=== PATIENT | male | born 1970 | race African-American/Black ===

== ENCOUNTER 2017-11-02 15:06 | Inpatient (IN) | payer OTHER ==
[2017-11-02 16:37] VITALS: BMI 32.3
--- NOTE | 2017-11-02 18:26 | HP ---
COWS - Scale Resting Pulse: 1= [place] 81-100 Sweatin= Chills/Flushing Restless Observation: 1= Difficult to Sit Still Pupil Size: 1= Pupils >than Normal Bone or Joint Aches: 1= Mild Discomfort Runny Nose/ Eye Tearin= Nasal Congestion GI Upset > 30mins: 2= Nausea/Diarrhea Tremor Observation: 2= Slight Tremor Visible Yawning Observation: 1= 1-2x During Session Anxiety or Irritability: 2=Irritable/Anxious Goose Flesh Skin: 3=Piloerection COWS Score: 16 CIWA Score - CIWA Score Nausea/Vomitin Muscle Tremors: 3 Anxiety: 3 Agitation: 3 Paroxysmal Sweats: 3 Orientation: 0-Oriented Tacttile Disturbances: 1-Very Mild Itch/Numbness Auditory Disturbances: 0-None Visual Disturbances: 0-None Headache: 0-None Present CIWA-Ar Total Score: 16 Admission [facility] Chief Complaint: alcohol and heroin withdrawal sx Allergies/Adverse Reactions: Allergies Allergy/AdvReac Type Severity Reaction Status Date / Time Fish Containing Products Allergy Severe Hives Verified 11/02/17 16:36 tomato Allergy Severe Hives Verified 11/02/17 16:36 No Known Drug Allergies Allergy Verified 11/02/17 16:36 History of Present Illness: 47 yo m w h/o opioid use diorer and chronic alcoholism, has [facility] past for detox requesting inpateitn detoxification from lcohol ad nhoerin because of withdrawal sx when he does not use. no h/o seizures, DTs. no si PMHX HTN on meds, not taking them. thirsty, Exam Limitations: No Limitations - Ebola screening Have you traveled outside of the country in the last 21 days: No (N) Have you had contact with anyone from an Ebola affected area: No Have you been sick,other than usual withdrawal symptoms: No Do you have a fever: No - Review of Systems Constitutional: Chills, Diaphoresis, Night Sweats, Changes in sleep, Weight Stable EENT: reports: Tearing, Nose Congestion Respiratory: reports: No Symptoms reported Cardiac: reports: No Symptoms Reported GI: reports: Difficulty Swallowing, Nausea, Poor Appetite, Poor Fluid Intake, Indigestion, Abdominal cramping : reports: No Symptoms Reported Musculoskeletal: reports: Back Pain (withdrawawl sx), Muscle Pain Integumentary: reports: Flushing, Sweating Neuro: reports: Numbness, Tingling, Tremors Endocrine: reports: Increased Thirst Hematology: reports: No Symptoms Reported Psychiatric: reports: Judgement Intact, Mood/Affect Appropiate, Orientated x3, Anxious, Depressed Other Systems: Reviewed and Negative Patient History - Patient Medical History Hx Anemia: No Hx Asthma: No Hx Chronic Obstructive Pulmonary Disease (COPD): No Hx Cancer: No Hx Cardiac Disorders: No Hx Congestive Heart Failure: No Hx Hypertension: Yes (ON NORVASC) Hx Hypercholesterolemia: No Hx Pacemaker: No HX Cerebrovascular Accident: No Hx Seizures: No Hx Dementia: No Hx Diabetes: No Hx Gastrointestinal Disorders: No Hx Liver Disease: No Hx Genitourinary Disorders: No Hx Sexually Transmitted Disorders: No Hx Renal Disease (ESRD): No Hx Thyroid Disease: No Hx Human Immunodeficiency Virus (HIV): No (03/20 LAST NEGATIVE) Hx Hepatitis C: No Hx Depression: Yes (no on meds) Hx Suicide Attempt: No (no si) Hx Bipolar Disorder: No Hx Schizophrenia: No - Patient Surgical History Past Surgical History: Yes Hx Neurologic Surgery: No Hx Cataract Extraction: No Hx Cardiac Surgery: No Hx Lung Surgery: No Hx Breast Surgery: No Hx Breast Biopsy: No Hx Abdominal Surgery: Yes Hx Appendectomy: No Hx Cholecystectomy: No Hx Genitourinary Surgery: No Hx Section: No Hx Orthopedic Surgery: No Other Surgical History: R inguinal hernia and umbillical hernia repair. Anesthesia Reaction: No - PPD History Previous Implant?: Yes Documented Results: Negative w/proof Date: 12/09/15 Results: 0 MM PPD to be Administered?: Yes - Reproductive History Patient is a Female of Child Bearing Age (11 -55 yrs old): No Patient : No - Smoking Cessation Smoking history: Current every day smoker Have you smoked in the past 12 months: Yes Aproximately how many cigarettes per day: 10 Hx Chewing Tobacco Use: No Initiated information on smoking cessation: Yes 'Breaking Loose' booklet given: 11/02/17 - Substance & Tx. History Hx Alcohol Use: Yes Hx Substance Use: Yes Substance Use Type: Alcohol, Cocaine, Heroin, Opiates, Prescribed Hx Substance Use Treatment: Yes (detox in past) - Substances Abused Alcohol Route: Oral Frequency: Daily Amount used: LIQUOR- 1 PINT, BEER- 2 SIX PACK Age of first use: 21 Date of Last Use: 11/02/17 Heroin Route: Inhalation Frequency: Daily Amount used: 10 BAGS Age of first use: 36 Date of Last Use: 11/01/17 Non-Rx Methadone Route: Oral Frequency: Daily Amount used: 40mg Age of first use: 38 Date of Last Use: 10/31/17 Family Disease History - Family Disease History Family Disease History: Diabetes: Mother Admission Physical Exam S - Vital Signs Vital Signs: Vital Signs - 24 hr 11/02/17 16:28 Temperature 97.7 F Pulse Rate 90 Respiratory 18 Rate Blood Pressure 160/110 - Physical General Appearance: Yes: Nourished, Appropriately Dressed, Disheveled, Mild Distress, Obese, Tremorous, Irritable, Sweating, Anxious HEENTM: Yes: EOMI, Hearing grossly Normal, Normocephalic, Normal Voice, VICENTA, Pharynx Normal, Nasal Congestion, Rhinorrhea Respiratory: Yes: Within Normal Limits, Chest Non-Tender, Lungs Clear, Normal Breath Sounds, No Respiratory Distress, No Accessory Muscle Use Neck: Yes: Within Normal Limits, No masses,lesions,Nodules, Trachea in good position Breast: Yes: Breast Exam Deferred Cardiology: Yes: Within Normal Limits, Regular Rhythm, Regular Rate, S1, S2 Abdominal: Yes: Normal Bowel Sounds, Non Tender, Soft, Increased Bowel Sounds, Protuberent, Distended Genitourinary: Yes: Within Normal Limits Back: Yes: Within Normal Limits, Normal Inspection Musculoskeletal: Yes: full range of Motion, Gait Steady, Pelvis Stable, Back pain Extremities: Yes: Normal Capillary Refill, Normal Range of Motion, Tremors Neurological: Yes: 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 intact, Fully Oriented, Alert, Motor Strength 5/5, Normal Response, Depressed Affect Integumentary: Yes: Normal Color, Warm, Diaphoresis, Moist Lymphatic: Yes: Within Normal Limits - Addiitonal Findings: withdrawal sx - Diagnostic (1) Alcohol dependence with uncomplicated withdrawal Current Visit: No Status: Acute (2) Anxiety Current Visit: No Status: Acute (3) Cannabis dependence Current Visit: No Status: Acute (4) Cocaine dependence, uncomplicated Current Visit: No Status: Acute (5) HTN (hypertension) Current Visit: No Status: Acute Qualifiers: Hypertension type: essential hypertension Qualified Code(s): I10 - Essential (primary) hypertension (6) Opioid dependence with withdrawal Current Visit: No Status: Acute (7) Nicotine dependence Current Visit: No Status: Chronic Qualifiers: Nicotine product type: cigarettes Substance use status: uncomplicated Qualified Code(s): F17.210 - Nicotine dependence, cigarettes, uncomplicated (8) Obesity Current Visit: Yes Status: Acute Cleared for Admission S - Detox or Rehab S Level of Care: Medically Managed Detox Regimen/Protocol: Methadone/Librium BHS Breath Alcohol Content Breath Alcohol Content: 0 Urine Drug Screen - Results Drug Screen Negative: No Urine Drug Screen Results: THC-Marijuana, RICKIE-Cocaine, OPI-Opiates, BZO- Benzodiazepines
[2017-11-02] MEDS ORDERED: METHADONE HCL 10 MG TABLET (FOR DETOX USE ONLY) PO ONE ×2 (18:36→23:00)
[2017-11-02] MEDS ORDERED: IBUPROFEN 400 MG TABLET (FP) PO PRN (18:36)
[2017-11-02] MEDS ORDERED: ACETAMINOPHEN 325 MG TABLET (FP) PO PRN (18:36)
[2017-11-02] MEDS ORDERED: NICOTINE POLACRILEX 4 MG GUM BC PRN (18:36)
[2017-11-02] MEDS ORDERED: MAGNESIUM CITRATE 300 ML BOTTLE PO PRN (18:36)
[2017-11-02] MEDS ORDERED: chlordiazePOXIDE HCL 25 MG CAPSULE PO ONE (18:36)
[2017-11-02] MEDS ORDERED: LOPERAMIDE HCL 2 MG CAPSULE PO PRN (18:36)
[2017-11-02] MEDS ORDERED: P-EPHED 60MG/TRIPROLIDI 2.5MG TABLET PO PRN (18:36)
[2017-11-02] MEDS ORDERED: MAGNESIUM HYDROX 2400MG/30ML ORAL SUSPENSION 30 ML CUP PO PRN (18:36)
[2017-11-02] MEDS ORDERED: hydrOXYzine PAMOATE 50 MG CAPSULE (FP) PO PRN (18:36)
[2017-11-02] MEDS ORDERED: guaiFENesin/D-METHORPHAN HB 10 ML UNIT-DOSE CUPS PO PRN (18:36)
[2017-11-02] MEDS ORDERED: MENTHOL/PHENOL 1 EACH UD MM PRN (18:36)
[2017-11-02] MEDS ORDERED: MAG HYDROX/AL HYDROX/SIMETH 30 ML UNIT-DOSE CUP PO PRN (18:36)
[2017-11-02] MEDS ORDERED: chlordiazePOXIDE HCL 25 MG CAPSULE PO PRN (18:36)
[2017-11-02] MEDS: NICOTINE 14 MG/24 HOURS TOPICAL PATCH TD SCH (19:31)
[2017-11-02] MEDS: amLODIPine BESYLATE 5 MG TABLET (FP) PO SCH (19:31)
[2017-11-02] MEDS: chlordiazePOXIDE HCL 25 MG CAPSULE PO SCH (22:19)
[2017-11-02] MEDS: THIAMINE HCL 100 MG TABLET (FP) PO SCH (22:19)
[2017-11-02] MEDS: cloNIDine HCL 0.1 MG TABLET PO SCH (22:19)
[2017-11-02 23:25] LABS: URINE APPEARANCE CLEAR; URINE BILIRUBIN NEGATIVE (NEGATIVE); URINE BLOOD NEGATIVE (NEGATIVE); URINE COLOR LTYELLOW; URINE GLUCOSE (UA) NEGATIVE (NEGATIVE); URINE KETONE NEGATIVE (NEGATIVE); URINE LEUK ESTERASE TRACE (NEGATIVE); URINE NITRITE NEGATIVE (NEGATIVE); URINE PROTEIN NEGATIVE (NEGATIVE); URINE UROBILINOGEN NEGATIVE mg/dL (0.2-1.0)
[2017-11-02 23:49] LABS: EPI CELLS RARE /HPF (FEW)
[2017-11-03] MEDS: chlordiazePOXIDE HCL 25 MG CAPSULE PO SCH ×4 (05:48→22:20)
[2017-11-03] MEDS ORDERED: METHADONE HCL 10 MG TABLET (FOR DETOX USE ONLY) PO SCH (10:00)
[2017-11-03 10:12] LABS: CHLORIDE 105 mmol/L (98-107); POTASSIUM 4.9 mmol/L (3.5-5.1); SODIUM 141 mmol/L (136-145)
[2017-11-03 10:14] LABS: HEMATOCRIT 41.7 % (35.4-49); HEMOGLOBIN 13.3 GM/dL (11.7-16.9); MCH 28.6 pg (25.7-33.7); MCHC 31.8 g/dl (32.0-35.9); MEAN CELL VOLUME 89.8 fl (80-96); MEAN PLT VOLUME 10.3 fl (7.5-11.1); PLATELET COUNT 187 K/MM3 (134-434); RBC 4.64 M/mm3 (4.00-5.60); WHITE BLOOD COUNT 8.5 K/mm3 (4.0-10.0)
[2017-11-03 10:29] LABS: ALBUMIN 3.6 g/dl (3.4-5.0); ALK PHOS 63 U/L (45-117); ANION GAP 6 (8-16); BILIRUBIN,TOTAL 0.4 mg/dL (0.2-1.0); BLOOD UREA NITROGEN 20 mg/dL (7-18); CALCIUM 8.6 mg/dL (8.5-10.1); CO2 30 mmol/L (21-32); CREATININE 1.4 mg/dL (0.7-1.3); GLUCOSE,RANDOM 78 mg/dL (74-106); SGOT/AST 20 U/L (15-37); SGPT/ALT 30 U/L (12-78); TOT PROT 6.7 g/dl (6.4-8.2)
[2017-11-03] MEDS: amLODIPine BESYLATE 5 MG TABLET (FP) PO SCH (10:29)
[2017-11-03] MEDS: cloNIDine HCL 0.1 MG TABLET PO SCH ×2 (10:29→22:20)
[2017-11-03] MEDS: PRENATAL VITAMINS W/ FOLIC ACID TABLET (FP) PO SCH (10:29)
[2017-11-03] MEDS: NICOTINE 14 MG/24 HOURS TOPICAL PATCH TD SCH (10:29)
--- NOTE | 2017-11-03 11:46 | PN ---
[facility] CIWA - CIWA Score Nausea/Vomitin Muscle Tremors: 3 Anxiety: 4-Mod. Anxious/Guarded Agitation: 3 Paroxysmal Sweats: 3 Orientation: 0-Oriented Tacttile Disturbances: 2-Mild Itch/Numbness/Burn Auditory Disturbances: 0-None Visual Disturbances: 0-None Headache: 0-None Present CIWA-Ar Total Score: 17 BHS COWS - Scale Resting Pulse: 1= [place] 81-100 Sweatin= Chills/Flushing Restless Observation: 1= Difficult to Sit Still Pupil Size: 0= Normal to Room Light Bone or Joint Aches: 2= Severe Diffuse Aches Runny Nose/ Eye Tearin= None GI Upset > 30mins: 2= Nausea/Diarrhea Tremor Observation of Outstretched Hands: 2= Slight Tremor Visible Yawning Observation: 1= 1-2x During Session Anxiety or Irritability: 2=Irritable/Anxious Goose Flesh Skin: 3=Piloerection COWS Score: 15 [facility] Progress Note (SOAP) Subjective: Tremors, Sweating, Body Aches, Anxious, Interrupted Sleep. Objective: PT. A & O X 3, OBSERVED AMBULATING ON UNIT. NO ACUTE DISTRESS. 11/03/17 11:43 Vital Signs Temperature 95.8 F L 11/03/17 09:02 Pulse Rate 85 11/03/17 09:02 Respiratory Rate 18 11/03/17 09:02 Blood Pressure 146/85 11/03/17 09:02 O2 Sat by Pulse Oximetry (%) Laboratory Tests 11/02/17 11/03/17 11/03/17 Unknown 07:00 07:00 WBC 8.5 RBC 4.64 Hgb 13.3 Hct 41.7 MCV 89.8 MCH 28.6 MCHC 31.8 L RDW 14.0 Plt Count 187 D MPV 10.3 Sodium 141 Potassium 4.9 Chloride 105 Carbon Dioxide 30 Anion Gap 6 L BUN 20 H D Creatinine 1.4 H Creat Clearance w eGFR 54.80 Random Glucose 78 Calcium 8.6 Total Bilirubin 0.4 AST 20 ALT 30 D Alkaline Phosphatase 63 Total Protein 6.7 Albumin 3.6 Urine Color Ltyellow Urine Appearance Clear Urine pH 8.0 D Ur Specific [place] 1.020 Urine Protein Negative Urine Glucose (UA) Negative Urine Ketones Negative Urine Blood Negative Urine Nitrite Negative Urine Bilirubin Negative Urine Urobilinogen Negative Ur Leukocyte Esterase Trace Urine WBC (Auto) 5 Urine RBC (Auto) <1 Ur Epithelial Cells Rare LABS NOTED. RPR RESULT PENDING. 11/03/17 11:46 Assessment: 11/03/17 11:44 WITHDRAWAL SYMPTOMS. Plan: CONTINUE DETOX. D/C IBUPROFEN AND MAGNESIUM-CONTAINING MEDS. FOR ABNORMAL ADMISSION RENAL LABS. INCREASE DAILY PO FLUID INTAKE.
--- NOTE | 2017-11-03 12:40 | CONSULT ---
[facility] Psychiatric Consult - Data Date of interview: 11/03/17 Admission source: [facility] Identifying data: Readmission to [facility] for this 47 y/o AA male seeking detox treatment on for alcohol,cocaine,cannabis and heroin dependence.Patient is single,a father of one,domiciled,unemployed and supported by friends/relatives. Substance Abuse History: Confirmed by patient in this interview.See details in current [facility] report : Smoking history: Current every day smoker. Have you smoked in the past 12 months: Yes. Aproximately how many cigarettes per day: 10. Hx Chewing Tobacco Use: No. Initiated information on smoking cessation: Yes. 'Breaking Loose' booklet given: 11/02/17. - Substance & Tx. History. Hx Alcohol Use: Yes. Hx Substance Use: Yes. Substance Use Type: Alcohol, Cocaine , Heroin, Opiates, Prescribed. Hx Substance Use Treatment: Yes (detox in past) . - Substances Abused. Alcohol. Route: Oral. Frequency: Daily. Amount used: LIQUOR- 1 PINT, BEER- 2 SIX PACK. Age of first use: 21. Date of Last Use : 11/02/17. Heroin. Route: Inhalation. Frequency: Daily. Amount used: 10 BAGS. Age of first use: 36. Date of Last Use: 11/01/17. Non-Rx Methadone. Route: Oral. Frequency: Daily. Amount used: 40mg. Age of first use: 38. Date of Last Use: 10/31/17 Medical History: Hypertension and a history of right inguinal + umbilical herniorraphies. Psychiatric History: Reportedly diagnosed with Schizophrenia.Patient endorses a history of three psychiatric hospitalizations ([facility] and [facility]).Onset of mental illness in early 20s (special education) .Mr May indicates that he was prescribed abilify 20 mg/day + trazodone 300 mg/hs + vistaril 50 mg prn at the time of his affiliation with the [facility].No reported attendance " for a while." Translated by patient into one year of total non-adherence with medications and OPD care.Patient reports one suicide attempt via wrist-cutting (2002). Physical/Sexual Abuse/Trauma History: Patient denies. Additional Comment: Urine Drug Screen Results: THC-Marijuana, RICKIE-Cocaine, OPI- Opiates, BZO-Benzodiazepines.Noted. Mental Status Exam - Mental Status Exam Alert and Oriented to: Time, Place, Person Cognitive Function: Good Patient Appearance: Well Groomed Mood: Withdrawn, Hopeful Affect: Appropriate, Normal Range Patient Behavior: Fatigued, Cooperative Speech Pattern: Clear, Appropriate Voice Loudness: Normal Thought Process: Goal Oriented Thought Disorder: Not Present Hallucinations: Denies Suicidal Ideation: Denies Homicidal Ideation: Denies Insight/Judgement: Poor Sleep: Poorly, Difficulty falling asleep Appetite: Good Muscle strength/Tone: Normal Gait/Station: Normal Psychiatric Findings - Problem List ([place] 1, 2,3) (1) Alcohol dependence with uncomplicated withdrawal Current Visit: Yes Status: Acute (2) Cannabis dependence Current Visit: Yes Status: Acute (3) Cocaine dependence, uncomplicated Current Visit: Yes Status: Acute (4) Opioid dependence with withdrawal Current Visit: Yes Status: Acute (5) Nicotine dependence Current Visit: Yes Status: Acute Qualifiers: Nicotine product type: cigarettes Substance use status: uncomplicated Qualified Code(s): F17.210 - Nicotine dependence, cigarettes, uncomplicated (6) Substance induced mood disorder Current Visit: Yes Status: Acute (7) Insomnia Current Visit: Yes Status: Acute - Initial Treatment Plan Initial Treatment Plan: Psychoeducation and support.Sleep hygiene discussed with patient.Detoxification in progress.Medications : trazodone 100 mg po hs + abilify 5 mg po hs.Side effects/benefits of each drug (including the potential for priapism) are discussed with the patient.Mr May consented (verbally) to adhere to this careplan.Daily monitoring of clinical course.
--- NOTE | 2017-11-03 14:09 | EKG ---
Test Reason : Blood Pressure : / mmHG Vent. Rate : 089 BPM Atrial Rate : 089 BPM P-R Int : 172 ms QRS Dur : 110 ms QT Int : 410 ms P-R-T Axes : 068 058 -08 degrees QTc Int : 498 ms NORMAL SINUS RHYTHM T WAVE ABNORMALITY, CONSIDER INFEROLATERAL ISCHEMIA PROLONGED QT ABNORMAL ECG NO PREVIOUS ECGS AVAILABLE Confirmed by MD Reagan Edward ([id number]) on 11/03/2017 2:09:08 PM Referred By: Confirmed By:Art Reagan MD
[2017-11-03] MEDS: ARTIFICIAL TEARS (POLYVINYL ALCOHOL 1.4%) OPTH DROPS OU PRN ×2 (15:32→22:20)
[2017-11-03] MEDS ORDERED: traZODone HCL 100 MG TABLET (FP) PO SCH (22:00)
[2017-11-03] MEDS ORDERED: ARIPiprazole 5 MG TABLET (FP) PO SCH (22:00)
[2017-11-03] MEDS: THIAMINE HCL 100 MG TABLET (FP) PO SCH (22:21)
[2017-11-04] MEDS: chlordiazePOXIDE HCL 25 MG CAPSULE PO SCH ×2 (05:46→10:47)
[2017-11-04] MEDS ORDERED: METHADONE HCL 5 MG TABLET (FOR DETOX USE ONLY) PO SCH (10:00)
[2017-11-04] MEDS ORDERED: CARBAMIDE PEROXIDE 6.5% OTIC 15 ML BOTTLE AU SCH (10:00)
[2017-11-04] MEDS: NICOTINE 14 MG/24 HOURS TOPICAL PATCH TD SCH (10:47)
[2017-11-04] MEDS: amLODIPine BESYLATE 5 MG TABLET (FP) PO SCH (10:47)
[2017-11-04] MEDS: PRENATAL VITAMINS W/ FOLIC ACID TABLET (FP) PO SCH (10:47)
[2017-11-04] MEDS: cloNIDine HCL 0.1 MG TABLET PO SCH (10:47)
[2017-11-04] MEDS: ARTIFICIAL TEARS (POLYVINYL ALCOHOL 1.4%) OPTH DROPS OU PRN (10:49)
--- NOTE | 2017-11-04 12:13 | PN ---
[facility] Progress Note Note: Psychiatry Attending's note (follow-up) : Met with patient. Issue : change of mind about medications. Mr May declines to continue trazodone/abilify. " I don't need them.I have not taken anything for months." Patient argues that he has done well without psychotropics. Stable mental status.Uneventful hospital course.Baseline. Plan : Trazodone and abilify are discontinued. Psychoeducation : daily sessions.Support. Search for inpatient rehabilitation program. Discussed with Multidisciplinary team.
[2017-11-04 13:30] VITALS: BP 139/89; PULSE 86; TEMP 97.9
--- NOTE | 2017-11-04 14:28 | PN ---
[facility] CIWA - CIWA Score Nausea/Vomitin-No Nausea/No Vomiting Muscle Tremors: 3 Anxiety: 4-Mod. Anxious/Guarded Agitation: 3 Paroxysmal Sweats: 2 Orientation: 0-Oriented Tacttile Disturbances: 3-Moderate Itch/Numb/Burn Auditory Disturbances: 0-None Visual Disturbances: 0-None Headache: 0-None Present CIWA-Ar Total Score: 15 S COWS - Scale Resting Pulse: 1= [place] 81-100 Sweatin= Chills/Flushing Restless Observation: 1= Difficult to Sit Still Pupil Size: 0= Normal to Room Light Bone or Joint Aches: 2= Severe Diffuse Aches Runny Nose/ Eye Tearin= None GI Upset > 30mins: 1= Stomach Cramp Tremor Observation of Outstretched Hands: 2= Slight Tremor Visible Yawning Observation: 1= 1-2x During Session Anxiety or Irritability: 2=Irritable/Anxious Goose Flesh Skin: 0=Smooth Skin COWS Score: 11 S Progress Note (SOAP) Subjective: Body Aches, Sweating, Stomach cramping, Anxious. Objective: PT. A & O X 3, OBSERVED AMBULATING ON UNIT. NO ACUTE DISTRESS. 11/04/17 14:26 Vital Signs Temperature 97.9 F 11/04/17 13:29 Pulse Rate 86 11/04/17 13:29 Respiratory Rate 18 11/04/17 13:29 Blood Pressure 139/89 11/04/17 13:29 O2 Sat by Pulse Oximetry (%) Laboratory Tests 11/02/17 11/03/17 11/03/17 Unknown 05:50 07:00 WBC 8.5 RBC 4.64 Hgb 13.3 Hct 41.7 MCV 89.8 MCH 28.6 MCHC 31.8 L RDW 14.0 Plt Count 187 D MPV 10.3 Sodium Potassium Chloride Carbon Dioxide Anion Gap BUN Creatinine Creat Clearance w eGFR Random Glucose Calcium Total Bilirubin AST ALT Alkaline Phosphatase Total Protein Albumin Urine Color Ltyellow Urine Appearance Clear Urine pH 8.0 D Ur Specific [place] 1.020 Urine Protein Negative Urine Glucose (UA) Negative Urine Ketones Negative Urine Blood Negative Urine Nitrite Negative Urine Bilirubin Negative Urine Urobilinogen Negative Ur Leukocyte Esterase Trace Urine WBC (Auto) 5 Urine RBC (Auto) <1 Ur Epithelial Cells Rare RPR Titer HIV 1&2 Antibody Screen Negative HIV P24 Antigen Negative 11/03/17 11/03/17 07:00 07:00 WBC RBC Hgb Hct MCV MCH MCHC RDW Plt Count MPV Sodium 141 Potassium 4.9 Chloride 105 Carbon Dioxide 30 Anion Gap 6 L BUN 20 H D Creatinine 1.4 H Creat Clearance w eGFR 54.80 Random Glucose 78 Calcium 8.6 Total Bilirubin 0.4 AST 20 ALT 30 D Alkaline Phosphatase 63 Total Protein 6.7 Albumin 3.6 Urine Color Urine Appearance Urine pH Ur Specific [place] Urine Protein Urine Glucose (UA) Urine Ketones Urine Blood Urine Nitrite Urine Bilirubin Urine Urobilinogen Ur Leukocyte Esterase Urine WBC (Auto) Urine RBC (Auto) Ur Epithelial Cells RPR Titer Nonreactive HIV 1&2 Antibody Screen HIV P24 Antigen LABS NOTED. Assessment: 11/04/17 14:27 WITHDRAWAL SYMPTOMS. Plan: CONTINUE DETOX. INCREASE DAILY PO FLUID INTAKE.
--- NOTE | 2017-11-04 17:54 | DS ---
[facility] Detox Discharge Summary Admission Date: 11/02/17 Discharge Date: 11/04/17 - History Present History: Alcohol Dependence, Cannabis Dependence, Cocaine Dependence, Opioid Dependence Pertinent Past History: HTN Obesity Insomnia - Physical Exam Results Vital Signs: Vital Signs Temperature 97.9 F 11/04/17 13:29 Pulse Rate 86 11/04/17 13:29 Respiratory Rate 18 11/04/17 13:29 Blood Pressure 139/89 11/04/17 13:29 O2 Sat by Pulse Oximetry (%) Pertinent Admission Physical Exam Findings: Laboratory Last Values WBC 8.5 K/mm3 (4.0-10.0) 11/03/17 07:00 RBC 4.64 M/mm3 (4.00-5.60) 11/03/17 07:00 Hgb 13.3 GM/dL (11.7-16.9) 11/03/17 07:00 Hct 41.7 % (35.4-49) 11/03/17 07:00 MCV 89.8 fl (80-96) 11/03/17 07:00 MCH 28.6 pg (25.7-33.7) 11/03/17 07:00 MCHC 31.8 g/dl (32.0-35.9) L 11/03/17 07:00 RDW 14.0 % (11.9-15.9) 11/03/17 07:00 Plt Count 187 K/MM3 (134-434) D 11/03/17 07:00 MPV 10.3 fl (7.5-11.1) 11/03/17 07:00 Sodium 141 mmol/L (136-145) 11/03/17 07:00 Potassium 4.9 mmol/L (3.5-5.1) 11/03/17 07:00 Chloride 105 mmol/L (98-107) 11/03/17 07:00 Carbon Dioxide 30 mmol/L (21-32) 11/03/17 07:00 Anion Gap 6 (8-16) L 11/03/17 07:00 BUN 20 mg/dL (7-18) H D 11/03/17 07:00 Creatinine 1.4 mg/dL (0.7-1.3) H 11/03/17 07:00 Creat Clearance w eGFR 54.80 (>60) 11/03/17 07:00 Random Glucose 78 mg/dL (74-106) 11/03/17 07:00 Calcium 8.6 mg/dL (8.5-10.1) 11/03/17 07:00 Total Bilirubin 0.4 mg/dL (0.2-1.0) 11/03/17 07:00 AST 20 U/L (15-37) 11/03/17 07:00 ALT 30 U/L (12-78) D 11/03/17 07:00 Alkaline Phosphatase 63 U/L (45-117) 11/03/17 07:00 Total Protein 6.7 g/dl (6.4-8.2) 11/03/17 07:00 Albumin 3.6 g/dl (3.4-5.0) 11/03/17 07:00 Urine Color Ltyellow 11/02/17 Unknown Urine Appearance Clear 11/02/17 Unknown Urine pH 8.0 (5.0-8.0) D 11/02/17 Unknown Ur Specific [place] 1.020 (1.001-1.035) 11/02/17 Unknown Urine Protein Negative (NEGATIVE) 11/02/17 Unknown Urine Glucose (UA) Negative (NEGATIVE) 11/02/17 Unknown Urine Ketones Negative (NEGATIVE) 11/02/17 Unknown Urine Blood Negative (NEGATIVE) 11/02/17 Unknown Urine Nitrite Negative (NEGATIVE) 11/02/17 Unknown Urine Bilirubin Negative (NEGATIVE) 11/02/17 Unknown Urine Urobilinogen Negative mg/dL (0.2-1.0) 11/02/17 Unknown Ur Leukocyte Esterase Trace (NEGATIVE) 11/02/17 Unknown Urine WBC (Auto) 5 /hpf (3-5) 11/02/17 Unknown Urine RBC (Auto) <1 /hpf (0-3) 11/02/17 Unknown Ur Epithelial Cells Rare /HPF (FEW) 11/02/17 Unknown RPR Titer Nonreactive (NONREACTIVE) 11/03/17 07:00 HIV 1&2 Antibody Screen Negative 11/03/17 05:50 HIV P24 Antigen Negative 11/03/17 05:50 - Medication Discharge Medications: Ambulatory Orders Amlodipine Besylate [Norvasc -] 5 mg PO DAILY 08/04/16 - Diagnosis (1) Alcohol dependence with uncomplicated withdrawal Current Visit: Yes Status: Acute (2) Cannabis dependence Current Visit: Yes Status: Acute (3) Cocaine dependence, uncomplicated Current Visit: Yes Status: Acute (4) Insomnia Current Visit: Yes Status: Acute (5) Nicotine dependence Current Visit: Yes Status: Acute Qualifiers: Nicotine product type: cigarettes Substance use status: uncomplicated Qualified Code(s): F17.210 - Nicotine dependence, cigarettes, uncomplicated (6) Obesity Current Visit: Yes Status: Acute Qualifiers: Obesity type: unspecified obesity type Obesity classification: unspecified obesity classification Serious obesity comorbidity presence: unspecified whether serious comorbidity present Qualified Code(s): E66.9 - Obesity, unspecified (7) Opioid dependence with withdrawal Current Visit: Yes Status: Acute (8) Substance induced mood disorder Current Visit: Yes Status: Acute (9) HTN (hypertension) Current Visit: Yes Status: Chronic Qualifiers: Hypertension type: essential hypertension Qualified Code(s): I10 - Essential (primary) hypertension - AMA Did Patient Leave Against Medical Advice: Yes (patient was advise to complete treatment and risk )
[2017-11-04] MEDS ORDERED: chlordiazePOXIDE 5 MG CAPSULE PO SCH (23:00)
[2017-11-05] MEDS ORDERED: chlordiazePOXIDE HCL 10 MG CAPSULE PO SCH (23:00)
[2017-11-06] MEDS ORDERED: METHADONE HCL 10 MG TABLET (FOR DETOX USE ONLY) PO SCH (10:00)
[2017-11-07] MEDS ORDERED: METHADONE HCL 5 MG TABLET (FOR DETOX USE ONLY) PO SCH (06:00)
== END 2017-11-04 17:33 | disposition left against medical advice (07) | DRG 770 ==
LOC: YASAS 15:06 → Y3N 18:39
PROVIDERS: ADMIT Internal Medicine; ATTEND Internal Medicine
PROC: HZ2ZZZZ Detoxification Services for Substance Abuse Treatment (ICD-10-PCS; principal; 2017-11-02)
DX: F11.23 Opioid dependence with withdrawal (principal); F10.230 Alcohol dependence with withdrawal, uncomplicated; F14.20 Cocaine dependence, uncomplicated; F12.20 Cannabis dependence, uncomplicated; F17.210 Nicotine dependence, cigarettes, uncomplicated; F19.24 Other psychoactive substance dependence with psychoactive substance-induced mood disorder; F41.9 Anxiety disorder, unspecified; I10 Essential (primary) hypertension; G47.00 Insomnia, unspecified; E66.9 Obesity, unspecified; Z68.21 Body mass index [BMI] 21.0-21.9, adult; Z91.013 Allergy to seafood; Z91.018 Allergy to other foods
CPT/HCPCS: 36415; 80053; 81003; 81015; 85027; 86593; 87389; 93005; 93010; J0735

== ENCOUNTER 2018-06-18 12:14 | Inpatient (IN) | payer OTHER ==
[2018-06-18 13:21] VITALS: BMI 32.4
--- NOTE | 2018-06-18 19:56 | HP ---
COWS - Scale Resting Pulse: 0= [place] 80 or Below Sweatin=Flushed/Facial Moisture Restless Observation: 0= Sits Still Pupil Size: 2= Moderately Dilated (4 mm) Bone or Joint Aches: 1= Mild Discomfort Runny Nose/ Eye Tearin= Runny Nose/Eyes GI Upset > 30mins: 2= Nausea/Diarrhea Tremor Observation: 1= Tremor [place], Not Seen Yawning Observation: 0= None Anxiety or Irritability: 1=Feels Anxious/Irritable Goose Flesh Skin: 0=Smooth Skin COWS Score: 11 CIWA Score - CIWA Score Nausea/Vomitin-Mild Nausea/No Vomiting Muscle Tremors: 1-None Visible, but [place] Anxiety: 1-Mildly Anxious Agitation: 1-Slight > Activity Paroxysmal Sweats: 3 Orientation: 0-Oriented Tacttile Disturbances: 0-None Auditory Disturbances: 0-None Visual Disturbances: 0-None Headache: 0-None Present CIWA-Ar Total Score: 7 Admission [facility] Chief Complaint: Here having alcohol and heroin withdrawal. Allergies/Adverse Reactions: Allergies Allergy/AdvReac Type Severity Reaction Status Date / Time Fish Containing Products Allergy Severe Hives Verified 06/18/18 17:21 tomato Allergy Severe Hives Verified 06/18/18 17:21 No Known Drug Allergies Allergy Verified 06/18/18 17:21 History of Present Illness: Marijuana use disorder since age 19. Alcohol use disorder since age 21. Cocaine use disorder since age 21. Heroin use disorder since age 37. Nicotine use disorder since age 19. Hx HTN on meds. Denies other health issues. Denies seizures or blackouts. Denies any period of time when able to maintain sobriety. PDMP report reviewed. Exam Limitations: No Limitations - Ebola screening Have you traveled outside of the country in the last 21 days: No Have you had contact with anyone from an Ebola affected area: No Have you been sick,other than usual withdrawal symptoms: No Do you have a fever: No - Review of Systems Constitutional: Diaphoresis, Changes in sleep (Difficulty falling asleep) EENT: reports: Blurred Vision (Wears reading glasses), Nose Congestion (r/t withdrawal) Respiratory: reports: No Symptoms reported Cardiac: reports: No Symptoms Reported GI: reports: No Symptoms Reported : reports: No Symptoms Reported Musculoskeletal: reports: Back Pain (r/t withdrawal) Integumentary: reports: No Symptoms Reported Neuro: reports: No Symptoms reported Endocrine: reports: No Symptoms Reported Hematology: reports: No Symptoms Reported Psychiatric: reports: Judgement Intact, Orientated x3, Agitated, Anxious Patient History - Patient Medical History Hx Anemia: No Hx Asthma: No Hx Chronic Obstructive Pulmonary Disease (COPD): No Hx Cancer: No Hx Cardiac Disorders: No Hx Congestive Heart Failure: No Hx Hypertension: Yes (on meds) Hx Hypercholesterolemia: No Hx Pacemaker: No HX Cerebrovascular Accident: No Hx Seizures: No Hx Dementia: No Hx Diabetes: No Hx Gastrointestinal Disorders: No Hx Liver Disease: No Hx Genitourinary Disorders: No Hx Sexually Transmitted Disorders: No Hx Renal Disease (ESRD): No Hx Thyroid Disease: No Hx Human Immunodeficiency Virus (HIV): No (03/20 LAST NEGATIVE) Hx Hepatitis C: No Hx Depression: No Hx Suicide Attempt: No Hx Bipolar Disorder: No Hx Schizophrenia: No - Patient Surgical History Past Surgical History: Yes Hx Neurologic Surgery: No Hx Cataract Extraction: No Hx Cardiac Surgery: No Hx Lung Surgery: No Hx Breast Surgery: No Hx Breast Biopsy: No Hx Abdominal Surgery: Yes Hx Appendectomy: No Hx Cholecystectomy: No Hx Genitourinary Surgery: No Hx Section: No Hx Orthopedic Surgery: No Other Surgical History: R inguinal hernia and umbillical hernia repair. Anesthesia Reaction: No - PPD History Previous Implant?: Yes Documented Results: Negative w/o proof Implanted On Prior R Admission?: Yes Date: 12/09/15 Results: 0 mm - Smoking Cessation Smoking history: Current every day smoker Have you smoked in the past 12 months: Yes Aproximately how many cigarettes per day: 10 Hx Chewing Tobacco Use: No Initiated information on smoking cessation: Yes 'Breaking Loose' booklet given: 06/18/18 - Substance & Tx. History Hx Alcohol Use: Yes Hx Substance Use: Yes Substance Use Type: Alcohol, Cocaine, Heroin, Marijuana Hx Substance Use Treatment: Yes (detox only ) - Substances Abused Heroin Route: Inhalation Frequency: Daily Amount used: 10 bags Age of first use: 37 Date of Last Use: 06/17/18 Alcohol Route: Oral Frequency: Daily Amount used: 1 pint cognac/12pk beer Age of first use: 21 Date of Last Use: 06/17/18 Marijuana/Hashish Route: Smoking Frequency: Daily Amount used: $50 Age of first use: 19 Date of Last Use: 06/17/18 Cocaine Route: Inhalation Frequency: Daily Amount used: $20 Age of first use: 21 Date of Last Use: 06/17/18 Family Disease History - Family Disease History Family Disease History: Diabetes: Mother Admission Physical Exam [facility] - Vital Signs Vital Signs: Vital Signs - 24 hr 06/18/18 13:16 Temperature 97.2 F L Pulse Rate 80 Respiratory 18 Rate Blood Pressure 155/95 - Physical General Appearance: Yes: Nourished, Mild Distress, Tremorous, Irritable, Sweating, Anxious HEENTM: Yes: EOMI, Hearing grossly Normal, Normocephalic, Normal Voice, VICENTA ( 4m mm), Rhinorrhea Respiratory: Yes: Chest Non-Tender, Lungs Clear, Normal Breath Sounds, No Respiratory Distress Neck: Yes: No masses,lesions,Nodules, Supple Breast: Yes: Breast Exam Deferred Cardiology: Yes: Regular Rhythm, Regular Rate, S1, S2 Abdominal: Yes: Non Tender, Soft, Increased Bowel Sounds, Protuberent ( Increased abdominal adiposity) Genitourinary: Yes: Within Normal Limits Back: Yes: Normal Inspection Musculoskeletal: Yes: full range of Motion, Gait Steady Extremities: Yes: Normal Capillary Refill, Non-Tender, Tremors Neurological: Yes: system planning engineer II-XII NML intact, Fully Oriented, Alert, Motor Strength 5/5, Normal Response Integumentary: Yes: Normal Color, Dry, Warm, Other (Superficial abraision (L) foot area approx 2 cm circular w/ first layer of skin absent. Minimal serosang drainage.) Lymphatic: Yes: Within Normal Limits - Diagnostic (1) Alcohol dependence with uncomplicated withdrawal Current Visit: Yes Status: Acute (2) Cannabis dependence Current Visit: Yes Status: Chronic (3) Cocaine dependence, uncomplicated Current Visit: Yes Status: Chronic (4) Nicotine dependence Current Visit: Yes Status: Chronic Qualifiers: Nicotine product type: cigarettes Substance use status: in withdrawal Qualified Code(s): F17.213 - Nicotine dependence, cigarettes, with withdrawal (5) Obesity Current Visit: Yes Status: Chronic Qualifiers: Obesity type: unspecified obesity type Obesity classification: adult class 1 (BMI 30 - 34.9) Serious obesity comorbidity presence: unspecified whether serious comorbidity present (6) Opioid dependence with withdrawal Current Visit: Yes Status: Acute (7) HTN (hypertension) Current Visit: Yes Status: Chronic Qualifiers: Hypertension type: essential hypertension Qualified Code(s): I10 - Essential (primary) hypertension (8) Abrasion Current Visit: Yes Status: Acute Cleared for Admission [facility] - Detox or Rehab [facility] Level of Care: Medically Supervised Detox Regimen/Protocol: Methadone/Librium S Breath Alcohol Content Breath Alcohol Content: 0 Urine Drug Screen - Results Drug Screen Negative: No Urine Drug Screen Results: THC-Marijuana, RICKIE-Cocaine, BZO-Benzodiazepines, OXY- Oxycodone, FEN-Fentanyl
[2018-06-18] MEDS ORDERED: LOPERAMIDE HCL 2 MG CAPSULE PO PRN (20:21)
[2018-06-18] MEDS ORDERED: MAGNESIUM HYDROX 2400MG/30ML ORAL SUSPENSION 30 ML CUP PO PRN (20:21)
[2018-06-18] MEDS ORDERED: P-EPHED 60MG/TRIPROLIDI 2.5MG TABLET PO PRN (20:21)
[2018-06-18] MEDS ORDERED: METHADONE HCL 10 MG TABLET (FOR DETOX USE ONLY) PO ONE ×2 (20:21→23:00)
[2018-06-18] MEDS ORDERED: chlordiazePOXIDE HCL 25 MG CAPSULE PO PRN (20:21)
[2018-06-18] MEDS ORDERED: NICOTINE POLACRILEX 2 MG GUM BC PRN (20:21)
[2018-06-18] MEDS ORDERED: guaiFENesin/D-METHORPHAN HB 10 ML UNIT-DOSE CUPS PO PRN (20:21)
[2018-06-18] MEDS ORDERED: chlordiazePOXIDE HCL 25 MG CAPSULE PO ONE (20:21)
[2018-06-18] MEDS ORDERED: hydrOXYzine PAMOATE 50 MG CAPSULE (FP) PO PRN (20:21)
[2018-06-18] MEDS ORDERED: MENTHOL/PHENOL 1 EACH UD MM PRN (20:21)
[2018-06-18] MEDS ORDERED: MAGNESIUM CITRATE 300 ML BOTTLE PO PRN (20:21)
[2018-06-18] MEDS ORDERED: IBUPROFEN 400 MG TABLET (FP) PO PRN (20:21)
[2018-06-18] MEDS ORDERED: ACETAMINOPHEN 325 MG TABLET (FP) PO PRN (20:21)
[2018-06-18] MEDS ORDERED: MAG HYDROX/AL HYDROX/SIMETH 30 ML UNIT-DOSE CUP PO PRN (20:21)
[2018-06-18] MEDS ORDERED: MELATONIN 5 MG TABLETS PO PRN (22:00)
[2018-06-18] MEDS: chlordiazePOXIDE HCL 25 MG CAPSULE PO SCH (22:17)
[2018-06-18] MEDS: THIAMINE HCL 100 MG TABLET (FP) PO SCH (22:17)
[2018-06-18] MEDS: BACITRACIN 0.9 GM PACKET TP SCH (22:17)
[2018-06-19] MEDS: chlordiazePOXIDE HCL 25 MG CAPSULE PO SCH ×4 (05:51→22:54)
[2018-06-19] MEDS ORDERED: METHADONE HCL 10 MG TABLET (FOR DETOX USE ONLY) PO SCH (10:00)
[2018-06-19] MEDS: BACITRACIN 0.9 GM PACKET TP SCH ×2 (10:43→22:53)
[2018-06-19] MEDS: LISINOPRIL 10 MG TABLET (FP) PO SCH (10:43)
[2018-06-19] MEDS: amLODIPine BESYLATE 5 MG TABLET (FP) PO SCH (10:43)
[2018-06-19] MEDS: PRENATAL VITAMINS W/ FOLIC ACID TABLET (FP) PO SCH (10:43)
[2018-06-19] MEDS: NICOTINE 21 MG/24 HOURS TOPICAL PATCH TD SCH (10:46)
[2018-06-19 11:10] LABS: MEAN PLT VOLUME 10.5 fl (7.5-11.1)
[2018-06-19 11:17] LABS: HEMATOCRIT 43.3 % (35.4-49); MCH 28.8 pg (25.7-33.7); MCHC 32.4 g/dl (32.0-35.9); MEAN CELL VOLUME 88.9 fl (80-96); PLATELET COUNT 166 K/MM3 (134-434); RBC 4.87 M/mm3 (4.00-5.60); RDW 14.8 % (11.9-15.9); WHITE BLOOD COUNT 7.5 K/mm3 (4.0-10.0)
[2018-06-19 11:26] LABS: CHLORIDE 107 mmol/L (98-107); POTASSIUM 4.2 mmol/L (3.5-5.1); SODIUM 142 mmol/L (136-145)
[2018-06-19 11:45] LABS: ALBUMIN 3.3 g/dl (3.4-5.0); ALK PHOS 54 U/L (45-117); ANION GAP 10 MMOL/L (8-16); BILIRUBIN,TOTAL 0.4 mg/dL (0.2-1.0); BLOOD UREA NITROGEN 18 mg/dL (7-18); CALCIUM 8.8 mg/dL (8.5-10.1); CO2 25 mmol/L (21-32); GLUCOSE,RANDOM 109 mg/dL (74-106); SGOT/AST 10 U/L (15-37); SGPT/ALT 15 U/L (13-61); TOT PROT 6.3 g/dl (6.4-8.2)
--- NOTE | 2018-06-19 14:26 | PN ---
S CIWA - CIWA Score Muscle Tremors: 2 Anxiety: 2 Agitation: 2 Paroxysmal Sweats: 2 Orientation: 1-Uncertain about Date Tacttile Disturbances: 0-None Auditory Disturbances: 0-None Visual Disturbances: 0-None Headache: 0-None Present S COWS - Scale Resting Pulse: 1= [place] 81-100 Sweatin= Chills/Flushing Restless Observation: 1= Difficult to Sit Still Pupil Size: 1= Pupils >than Normal Bone or Joint Aches: 1= Mild Discomfort Runny Nose/ Eye Tearin= Nasal Congestion GI Upset > 30mins: 3= Vomiting/Diarrhea Tremor Observation of Outstretched Hands: 2= Slight Tremor Visible Yawning Observation: 1= 1-2x During Session Anxiety or Irritability: 1=Feels Anxious/Irritable Goose Flesh Skin: 0=Smooth Skin COWS Score: 13 S Progress Note (SOAP) Subjective: pt states he is having stomach cramps and diarrhea, needs more meds for relief from anxiety O: Vital Signs - 24 hr 06/18/18 06/19/18 06/19/18 22:27 03:30 07:51 Temperature 97.3 F L 97.7 F Pulse Rate 64 78 Respiratory 20 18 18 Rate Blood Pressure 149/82 148/100 06/19/18 06/19/18 08:53 14:00 Temperature 97.7 F 97.3 F L Pulse Rate 84 81 Respiratory 18 16 Rate Blood Pressure 141/89 140/99 Laboratory Tests 06/19/18 06/19/18 06/19/18 07:50 07:50 07:50 WBC 7.5 RBC 4.87 Hgb 14.0 Hct 43.3 MCV 88.9 MCH 28.8 MCHC 32.4 RDW 14.8 Plt Count 166 MPV 10.5 Sodium 142 Potassium 4.2 Chloride 107 Carbon Dioxide 25 Anion Gap 10 BUN 18 Creatinine 1.0 Creat Clearance w eGFR > 60 Random Glucose 109 H Calcium 8.8 Total Bilirubin 0.4 AST 10 L ALT 15 Alkaline Phosphatase 54 Total Protein 6.3 L Albumin 3.3 L RPR Titer HIV 1&2 Antibody Screen Negative HIV P24 Antigen Negative 06/19/18 07:50 WBC RBC Hgb Hct MCV MCH MCHC RDW Plt Count MPV Sodium Potassium Chloride Carbon Dioxide Anion Gap BUN Creatinine Creat Clearance w eGFR Random Glucose Calcium Total Bilirubin AST ALT Alkaline Phosphatase Total Protein Albumin RPR Titer Nonreactive HIV 1&2 Antibody Screen HIV P24 Antigen labs OK BP a bit high a/p: continue alcohol and opioids detox protocols d/w pt to utilize prn meds, clonidine ordered
[2018-06-19] MEDS: cloNIDine HCL 0.1 MG TABLET PO PRN (14:41)
--- NOTE | 2018-06-19 16:41 | CONSULT ---
[facility] Psychiatric Consult - Data Date of interview: 06/19/18 Admission source: [facility] Identifying data: Another admission to [facility] for this 47 y/o AA male self- referred for detoxification treatment (alcohol,cocaine,cannabis,heroin) .Admitted to [address] [place] [address].Patient is single,a father of one,domiciled,unemployed and supported on SSI benefits. Substance Abuse History: Smoking history: Current every day smoker. Have you smoked in the past 12 months: Yes. Aproximately how many cigarettes per day: 10. Hx Chewing Tobacco Use: No. Initiated information on smoking cessation: Yes. 'Breaking Loose' booklet given: 06/18/18. - Substance & Tx. History. Hx Alcohol Use: Yes. Hx Substance Use: Yes. Substance Use Type: Alcohol, Cocaine , Heroin, Marijuana. Hx Substance Use Treatment: Yes (detox only ). - Substances Abused. Heroin. Route: Inhalation. Frequency: Daily. Amount used: 10 bags. Age of first use: 37. Date of Last Use: 06/17/18. Alcohol. Route: Oral. Frequency: Daily. Amount used: 1 pint cognac/12pk beer. Age of first use: 21. Date of Last Use: 06/17/18. Marijuana/Hashish. Route: Smoking. Frequency: Daily. Amount used: $50. Age of first use: 19. Date of Last Use: 06/17/18. Cocaine. Route: Inhalation. Frequency: Daily. Amount used: $20. Age of first use: 21. Date of Last Use: 06/17/18 Medical History: Hypertension and a history of right inguinal + umbilical herniorraphies. Psychiatric History: Unreliable historian.In this interview, the patient reports that he has been diagnosed with Schizophrenia,PTSD and Bipolar Disorder.Admits to a history of several psychiatric hospitalizations ([facility]).Onset of mental illness in early 20's (special education).Mr May indicates that he is still prescribed abilify 20 mg/day + trazodone 300 mg/hs.Has no contact with psychiatrists or OPD care organizations.Patient declares that he gets his refills from [facility] providers. History of one suicide attempt via wrist-cutting ( 2002). Physical/Sexual Abuse/Trauma History: Patient denies. Additional Comment: Urine Drug Screen Results: THC-Marijuana, RICKIE-Cocaine, BZO- Benzodiazepines, OXY-Oxycodone, FEN-Fentanyl.Noted. Mental Status Exam - Mental Status Exam Alert and Oriented to: Time, Place, Person Cognitive Function: Good Patient Appearance: Well Groomed Mood: Withdrawn, Irritable Affect: Mood Congruent Patient Behavior: Fatigued, Cooperative Speech Pattern: Clear, Appropriate Voice Loudness: Normal Thought Process: Intact, Goal Oriented Thought Disorder: Not Present Hallucinations: Denies Suicidal Ideation: Denies Homicidal Ideation: Denies Insight/Judgement: Poor Sleep: Poorly, Difficulty falling asleep Appetite: Good Muscle strength/Tone: Normal Gait/Station: Normal Psychiatric Findings - Problem List ([place] 1, 2,3) (1) Opioid dependence with withdrawal Current Visit: Yes Status: Acute (2) Alcohol dependence with uncomplicated withdrawal Current Visit: Yes Status: Acute (3) Cocaine dependence, uncomplicated Current Visit: Yes Status: Acute (4) Cannabis dependence Current Visit: Yes Status: Acute (5) Nicotine dependence Current Visit: Yes Status: Acute Qualifiers: Nicotine product type: cigarettes Substance use status: in withdrawal Qualified Code(s): F17.213 - Nicotine dependence, cigarettes, with withdrawal (6) Substance induced mood disorder Current Visit: Yes Status: Acute (7) Insomnia Current Visit: Yes Status: Acute (8) Non compliance w medication regimen Current Visit: Yes Status: Chronic Comment: Never follows up with aftercare. - Initial Treatment Plan Initial Treatment Plan: Psychoeducation.Sleep hygiene.Detoxification.Groups.No record of medications to reconciled.Patient is currently asymptomatic for claimed entities of PTSD,Bipolar Disorder and Schizophrenia.Current presentation is strongly suggestive of a substance-induced syndrome.Besides, this patient is known as an unreliable historian (refer to my previous notes) .Medications cannot be verified or confirmed.Will, as precaution, resume trazodone at 100 mg po hs + aripriprazole at 5 mg po daily.Side effects/ benefits discussed.Consent (verbal ) : taken.Patient will be observed and medications will be titrated (by unit clinician) if clinically indicated. Observation.
[2018-06-19 17:54] LABS: URINE APPEARANCE CLEAR; URINE BILIRUBIN NEGATIVE (<2.0 mg/dL); URINE COLOR LTYELLOW; URINE GLUCOSE (UA) NEGATIVE (NEGATIVE); URINE KETONE NEGATIVE (NEGATIVE); URINE LEUK ESTERASE NEGATIVE (NEGATIVE); URINE NITRITE NEGATIVE (NEGATIVE); URINE PROTEIN NEGATIVE (NEGATIVE); URINE UROBILINOGEN NEGATIVE mg/dL (0.2-1.0)
[2018-06-19] MEDS: THIAMINE HCL 100 MG TABLET (FP) PO SCH (22:54)
[2018-06-19] MEDS: traZODone HCL 100 MG TABLET (FP) PO SCH (23:46)
[2018-06-20] MEDS: chlordiazePOXIDE HCL 25 MG CAPSULE PO SCH ×3 (06:33→17:11)
[2018-06-20] MEDS: PRENATAL VITAMINS W/ FOLIC ACID TABLET (FP) PO SCH (10:13)
[2018-06-20] MEDS: amLODIPine BESYLATE 5 MG TABLET (FP) PO SCH (10:14)
[2018-06-20] MEDS: METHADONE HCL 5 MG TABLET (FOR DETOX USE ONLY) PO SCH (10:14)
[2018-06-20] MEDS: BACITRACIN 0.9 GM PACKET TP SCH ×2 (10:14→22:40)
[2018-06-20] MEDS: LISINOPRIL 10 MG TABLET (FP) PO SCH (10:14)
[2018-06-20] MEDS: NICOTINE 21 MG/24 HOURS TOPICAL PATCH TD SCH (10:16)
[2018-06-20] MEDS: ARIPiprazole 5 MG TABLET (FP) PO SCH (10:42)
--- NOTE | 2018-06-20 16:31 | PN ---
[facility] CIWA - CIWA Score Nausea/Vomitin-Mild Nausea/No Vomiting Muscle Tremors: 3 Anxiety: 2 Agitation: 3 Paroxysmal Sweats: 1-Minimal Palms Moist Orientation: 0-Oriented Tacttile Disturbances: 0-None Auditory Disturbances: 0-None Visual Disturbances: 0-None Headache: 0-None Present CIWA-Ar Total Score: 10 [facility] COWS - Scale Resting Pulse: 0= [place] 80 or Below Sweatin= Chills/Flushing Restless Observation: 1= Difficult to Sit Still Pupil Size: 0= Normal to Room Light Bone or Joint Aches: 1= Mild Discomfort Runny Nose/ Eye Tearin= Nasal Congestion GI Upset > 30mins: 1= Stomach Cramp Tremor Observation of Outstretched Hands: 2= Slight Tremor Visible Yawning Observation: 1= 1-2x During Session Anxiety or Irritability: 1=Feels Anxious/Irritable Goose Flesh Skin: 0=Smooth Skin COWS Score: 9 S Progress Note (SOAP) Subjective: body ache joints pain sweat tremor anxiety Objective: 06/20/18 16:30 Vital Signs Temperature 97.0 F L 06/20/18 13:51 Pulse Rate 103 H 06/20/18 13:51 Respiratory Rate 18 06/20/18 13:51 Blood Pressure 127/88 06/20/18 13:51 O2 Sat by Pulse Oximetry (%) Laboratory Last Values WBC 7.5 K/mm3 (4.0-10.0) 06/19/18 07:50 RBC 4.87 M/mm3 (4.00-5.60) 06/19/18 07:50 Hgb 14.0 GM/dL (11.7-16.9) 06/19/18 07:50 Hct 43.3 % (35.4-49) 06/19/18 07:50 MCV 88.9 fl (80-96) 06/19/18 07:50 MCH 28.8 pg (25.7-33.7) 06/19/18 07:50 MCHC 32.4 g/dl (32.0-35.9) 06/19/18 07:50 RDW 14.8 % (11.9-15.9) 06/19/18 07:50 Plt Count 166 K/MM3 (134-434) 06/19/18 07:50 MPV 10.5 fl (7.5-11.1) 06/19/18 07:50 Sodium 142 mmol/L (136-145) 06/19/18 07:50 Potassium 4.2 mmol/L (3.5-5.1) 06/19/18 07:50 Chloride 107 mmol/L (98-107) 06/19/18 07:50 Carbon Dioxide 25 mmol/L (21-32) 06/19/18 07:50 Anion Gap 10 MMOL/L (8-16) 06/19/18 07:50 BUN 18 mg/dL (7-18) 06/19/18 07:50 Creatinine 1.0 mg/dL (0.55-1.3) 06/19/18 07:50 Creat Clearance w eGFR > 60 (>60) 06/19/18 07:50 Random Glucose 109 mg/dL (74-106) H 06/19/18 07:50 Calcium 8.8 mg/dL (8.5-10.1) 06/19/18 07:50 Total Bilirubin 0.4 mg/dL (0.2-1.0) 06/19/18 07:50 AST 10 U/L (15-37) L 06/19/18 07:50 ALT 15 U/L (13-61) 06/19/18 07:50 Alkaline Phosphatase 54 U/L (45-117) 06/19/18 07:50 Total Protein 6.3 g/dl (6.4-8.2) L 06/19/18 07:50 Albumin 3.3 g/dl (3.4-5.0) L 06/19/18 07:50 Urine Color Ltyellow 06/19/18 15:43 Urine Appearance Clear 06/19/18 15:43 Urine pH 5.0 (5.0-8.0) D 06/19/18 15:43 Ur Specific [place] 1.019 (1.001-1.035) 06/19/18 15:43 Urine Protein Negative (NEGATIVE) 06/19/18 15:43 Urine Glucose (UA) Negative (NEGATIVE) 06/19/18 15:43 Urine Ketones Negative (NEGATIVE) 06/19/18 15:43 Urine Blood Negative (NEGATIVE) 06/19/18 15:43 Urine Nitrite Negative (NEGATIVE) 06/19/18 15:43 Urine Bilirubin Negative (<2.0 mg/dL) 06/19/18 15:43 Urine Urobilinogen Negative mg/dL (0.2-1.0) 06/19/18 15:43 Ur Leukocyte Esterase Negative (NEGATIVE) 06/19/18 15:43 RPR Titer Nonreactive (NONREACTIVE) 06/19/18 07:50 HIV 1&2 Antibody Screen Negative 06/19/18 07:50 HIV P24 Antigen Negative 06/19/18 07:50 lab noted Assessment: 06/20/18 16:30 withdrawal sx Plan: continue detox
--- NOTE | 2018-06-20 22:33 | EKG ---
Test Reason : Blood Pressure : / mmHG Vent. Rate : 066 BPM Atrial Rate : 066 BPM P-R Int : 184 ms QRS Dur : 104 ms QT Int : 460 ms P-R-T Axes : 072 057 027 degrees QTc Int : 482 ms SINUS RHYTHM WITH MARKED SINUS ARRHYTHMIA MINIMAL VOLTAGE CRITERIA FOR LVH, MAY BE NORMAL VARIANT T WAVE ABNORMALITY, CONSIDER INFERIOR ISCHEMIA T WAVE ABNORMALITY, CONSIDER ANTEROLATERAL ISCHEMIA PROLONGED QT ABNORMAL ECG WHEN COMPARED WITH ECG OF 02-NOV-2017 19:43, NO SIGNIFICANT CHANGE WAS FOUND Confirmed by NOÉ ORR MD ([id number]) on 06/20/2018 10:33:13 PM Referred By: Confirmed By:NOÉ ORR MD
[2018-06-20] MEDS: THIAMINE HCL 100 MG TABLET (FP) PO SCH (22:41)
[2018-06-20] MEDS: traZODone HCL 100 MG TABLET (FP) PO SCH (22:41)
[2018-06-20] MEDS: chlordiazePOXIDE 5 MG CAPSULE PO SCH (23:53)
[2018-06-21] MEDS: chlordiazePOXIDE 5 MG CAPSULE PO SCH ×3 (06:18→18:04)
[2018-06-21] MEDS: NICOTINE 21 MG/24 HOURS TOPICAL PATCH TD SCH (10:30)
[2018-06-21] MEDS: ARIPiprazole 5 MG TABLET (FP) PO SCH (10:31)
[2018-06-21] MEDS: amLODIPine BESYLATE 5 MG TABLET (FP) PO SCH (10:31)
[2018-06-21] MEDS: BACITRACIN 0.9 GM PACKET TP SCH ×2 (10:31→22:52)
[2018-06-21] MEDS: LISINOPRIL 10 MG TABLET (FP) PO SCH (10:31)
[2018-06-21] MEDS: METHADONE HCL 5 MG TABLET (FOR DETOX USE ONLY) PO SCH (10:32)
[2018-06-21] MEDS: PRENATAL VITAMINS W/ FOLIC ACID TABLET (FP) PO SCH (10:58)
[2018-06-21] MEDS: cloNIDine HCL 0.1 MG TABLET PO PRN (12:12)
--- NOTE | 2018-06-21 17:23 | PN ---
[facility] Progress Note (SOAP) Subjective: muscle cramping joints pain sweat tremor restlessness Objective: 06/21/18 17:22 Vital Signs Temperature 96.3 F L 06/21/18 13:08 Pulse Rate 97 H 06/21/18 13:08 Respiratory Rate 18 06/21/18 13:08 Blood Pressure 145/96 06/21/18 13:08 O2 Sat by Pulse Oximetry (%) Laboratory Last Values WBC 7.5 K/mm3 (4.0-10.0) 06/19/18 07:50 RBC 4.87 M/mm3 (4.00-5.60) 06/19/18 07:50 Hgb 14.0 GM/dL (11.7-16.9) 06/19/18 07:50 Hct 43.3 % (35.4-49) 06/19/18 07:50 MCV 88.9 fl (80-96) 06/19/18 07:50 MCH 28.8 pg (25.7-33.7) 06/19/18 07:50 MCHC 32.4 g/dl (32.0-35.9) 06/19/18 07:50 RDW 14.8 % (11.9-15.9) 06/19/18 07:50 Plt Count 166 K/MM3 (134-434) 06/19/18 07:50 MPV 10.5 fl (7.5-11.1) 06/19/18 07:50 Sodium 142 mmol/L (136-145) 06/19/18 07:50 Potassium 4.2 mmol/L (3.5-5.1) 06/19/18 07:50 Chloride 107 mmol/L (98-107) 06/19/18 07:50 Carbon Dioxide 25 mmol/L (21-32) 06/19/18 07:50 Anion Gap 10 MMOL/L (8-16) 06/19/18 07:50 BUN 18 mg/dL (7-18) 06/19/18 07:50 Creatinine 1.0 mg/dL (0.55-1.3) 06/19/18 07:50 Creat Clearance w eGFR > 60 (>60) 06/19/18 07:50 Random Glucose 109 mg/dL (74-106) H 06/19/18 07:50 Calcium 8.8 mg/dL (8.5-10.1) 06/19/18 07:50 Total Bilirubin 0.4 mg/dL (0.2-1.0) 06/19/18 07:50 AST 10 U/L (15-37) L 06/19/18 07:50 ALT 15 U/L (13-61) 06/19/18 07:50 Alkaline Phosphatase 54 U/L (45-117) 06/19/18 07:50 Total Protein 6.3 g/dl (6.4-8.2) L 06/19/18 07:50 Albumin 3.3 g/dl (3.4-5.0) L 06/19/18 07:50 Urine Color Ltyellow 06/19/18 15:43 Urine Appearance Clear 06/19/18 15:43 Urine pH 5.0 (5.0-8.0) D 06/19/18 15:43 Ur Specific [place] 1.019 (1.001-1.035) 06/19/18 15:43 Urine Protein Negative (NEGATIVE) 06/19/18 15:43 Urine Glucose (UA) Negative (NEGATIVE) 06/19/18 15:43 Urine Ketones Negative (NEGATIVE) 06/19/18 15:43 Urine Blood Negative (NEGATIVE) 06/19/18 15:43 Urine Nitrite Negative (NEGATIVE) 06/19/18 15:43 Urine Bilirubin Negative (<2.0 mg/dL) 06/19/18 15:43 Urine Urobilinogen Negative mg/dL (0.2-1.0) 06/19/18 15:43 Ur Leukocyte Esterase Negative (NEGATIVE) 06/19/18 15:43 RPR Titer Nonreactive (NONREACTIVE) 06/19/18 07:50 HIV 1&2 Antibody Screen Negative 06/19/18 07:50 HIV P24 Antigen Negative 06/19/18 07:50 lab noted Assessment: 06/21/18 17:23 withdrawal sx Plan: continue detox
[2018-06-21] MEDS: THIAMINE HCL 100 MG TABLET (FP) PO SCH (22:52)
[2018-06-21] MEDS: chlordiazePOXIDE HCL 10 MG CAPSULE PO SCH (22:52)
[2018-06-21] MEDS: traZODone HCL 100 MG TABLET (FP) PO SCH (22:52)
[2018-06-22] MEDS: chlordiazePOXIDE HCL 10 MG CAPSULE PO SCH ×3 (05:34→18:13)
[2018-06-22] MEDS ORDERED: METHADONE HCL 10 MG TABLET (FOR DETOX USE ONLY) PO SCH (10:00)
[2018-06-22] MEDS: cloNIDine HCL 0.1 MG TABLET PO PRN (11:26)
[2018-06-22] MEDS: amLODIPine BESYLATE 5 MG TABLET (FP) PO SCH (11:26)
[2018-06-22] MEDS: BACITRACIN 0.9 GM PACKET TP SCH ×2 (11:26→22:58)
[2018-06-22] MEDS: PRENATAL VITAMINS W/ FOLIC ACID TABLET (FP) PO SCH (11:27)
[2018-06-22] MEDS: NICOTINE 21 MG/24 HOURS TOPICAL PATCH TD SCH (11:27)
[2018-06-22] MEDS: LISINOPRIL 10 MG TABLET (FP) PO SCH (11:29)
[2018-06-22] MEDS: ARIPiprazole 5 MG TABLET (FP) PO SCH (11:30)
--- NOTE | 2018-06-22 16:26 | PN ---
[facility] Progress Note (SOAP) Subjective: feeling better no body ache no tremor less sweat sleep better at night Objective: 06/22/18 16:25 Vital Signs Temperature 98.5 F 06/22/18 13:57 Pulse Rate 116 H 06/22/18 13:57 Respiratory Rate 18 06/22/18 13:57 Blood Pressure 144/85 06/22/18 13:57 O2 Sat by Pulse Oximetry (%) Laboratory Last Values WBC 7.5 K/mm3 (4.0-10.0) 06/19/18 07:50 RBC 4.87 M/mm3 (4.00-5.60) 06/19/18 07:50 Hgb 14.0 GM/dL (11.7-16.9) 06/19/18 07:50 Hct 43.3 % (35.4-49) 06/19/18 07:50 MCV 88.9 fl (80-96) 06/19/18 07:50 MCH 28.8 pg (25.7-33.7) 06/19/18 07:50 MCHC 32.4 g/dl (32.0-35.9) 06/19/18 07:50 RDW 14.8 % (11.9-15.9) 06/19/18 07:50 Plt Count 166 K/MM3 (134-434) 06/19/18 07:50 MPV 10.5 fl (7.5-11.1) 06/19/18 07:50 Sodium 142 mmol/L (136-145) 06/19/18 07:50 Potassium 4.2 mmol/L (3.5-5.1) 06/19/18 07:50 Chloride 107 mmol/L (98-107) 06/19/18 07:50 Carbon Dioxide 25 mmol/L (21-32) 06/19/18 07:50 Anion Gap 10 MMOL/L (8-16) 06/19/18 07:50 BUN 18 mg/dL (7-18) 06/19/18 07:50 Creatinine 1.0 mg/dL (0.55-1.3) 06/19/18 07:50 Creat Clearance w eGFR > 60 (>60) 06/19/18 07:50 Random Glucose 109 mg/dL (74-106) H 06/19/18 07:50 Calcium 8.8 mg/dL (8.5-10.1) 06/19/18 07:50 Total Bilirubin 0.4 mg/dL (0.2-1.0) 06/19/18 07:50 AST 10 U/L (15-37) L 06/19/18 07:50 ALT 15 U/L (13-61) 06/19/18 07:50 Alkaline Phosphatase 54 U/L (45-117) 06/19/18 07:50 Total Protein 6.3 g/dl (6.4-8.2) L 06/19/18 07:50 Albumin 3.3 g/dl (3.4-5.0) L 06/19/18 07:50 Urine Color Ltyellow 06/19/18 15:43 Urine Appearance Clear 06/19/18 15:43 Urine pH 5.0 (5.0-8.0) D 06/19/18 15:43 Ur Specific [place] 1.019 (1.001-1.035) 06/19/18 15:43 Urine Protein Negative (NEGATIVE) 06/19/18 15:43 Urine Glucose (UA) Negative (NEGATIVE) 06/19/18 15:43 Urine Ketones Negative (NEGATIVE) 06/19/18 15:43 Urine Blood Negative (NEGATIVE) 06/19/18 15:43 Urine Nitrite Negative (NEGATIVE) 06/19/18 15:43 Urine Bilirubin Negative (<2.0 mg/dL) 06/19/18 15:43 Urine Urobilinogen Negative mg/dL (0.2-1.0) 06/19/18 15:43 Ur Leukocyte Esterase Negative (NEGATIVE) 06/19/18 15:43 RPR Titer Nonreactive (NONREACTIVE) 06/19/18 07:50 HIV 1&2 Antibody Screen Negative 06/19/18 07:50 HIV P24 Antigen Negative 06/19/18 07:50 lab noted Assessment: 06/22/18 16:25 mild withdrawal sx Plan: medically supervised detox
[2018-06-22] MEDS: traZODone HCL 100 MG TABLET (FP) PO SCH (22:58)
[2018-06-22] MEDS: THIAMINE HCL 100 MG TABLET (FP) PO SCH (22:58)
[2018-06-23] MEDS ORDERED: METHADONE HCL 5 MG TABLET (FOR DETOX USE ONLY) PO SCH (06:00)
[2018-06-23] MEDS: NICOTINE 21 MG/24 HOURS TOPICAL PATCH TD SCH (09:20)
[2018-06-23] MEDS: ARIPiprazole 5 MG TABLET (FP) PO SCH (09:20)
[2018-06-23] MEDS: amLODIPine BESYLATE 5 MG TABLET (FP) PO SCH (09:20)
[2018-06-23] MEDS: PRENATAL VITAMINS W/ FOLIC ACID TABLET (FP) PO SCH (09:20)
[2018-06-23] MEDS: BACITRACIN 0.9 GM PACKET TP SCH (09:20)
[2018-06-23] MEDS: LISINOPRIL 10 MG TABLET (FP) PO SCH (09:20)
--- NOTE | 2018-06-23 09:45 | DS ---
[facility] Detox Discharge Summary Admission Date: 06/18/18 Discharge Date: 06/23/18 - History Present History: Alcohol Dependence, Opioid Dependence Pertinent Past History: Admitted for opiate and alcohol withdrawal. - Physical Exam Results Vital Signs: Vital Signs Temperature 97.3 F L 06/23/18 06:00 Pulse Rate 85 06/23/18 06:00 Respiratory Rate 20 06/23/18 06:00 Blood Pressure 141/87 06/23/18 06:00 O2 Sat by Pulse Oximetry (%) Pertinent Admission Physical Exam Findings: Withdrawal symptoms on admission. Laboratory Last Values WBC 7.5 K/mm3 (4.0-10.0) 06/19/18 07:50 RBC 4.87 M/mm3 (4.00-5.60) 06/19/18 07:50 Hgb 14.0 GM/dL (11.7-16.9) 06/19/18 07:50 Hct 43.3 % (35.4-49) 06/19/18 07:50 MCV 88.9 fl (80-96) 06/19/18 07:50 MCH 28.8 pg (25.7-33.7) 06/19/18 07:50 MCHC 32.4 g/dl (32.0-35.9) 06/19/18 07:50 RDW 14.8 % (11.9-15.9) 06/19/18 07:50 Plt Count 166 K/MM3 (134-434) 06/19/18 07:50 MPV 10.5 fl (7.5-11.1) 06/19/18 07:50 Sodium 142 mmol/L (136-145) 06/19/18 07:50 Potassium 4.2 mmol/L (3.5-5.1) 06/19/18 07:50 Chloride 107 mmol/L (98-107) 06/19/18 07:50 Carbon Dioxide 25 mmol/L (21-32) 06/19/18 07:50 Anion Gap 10 MMOL/L (8-16) 06/19/18 07:50 BUN 18 mg/dL (7-18) 06/19/18 07:50 Creatinine 1.0 mg/dL (0.55-1.3) 06/19/18 07:50 Creat Clearance w eGFR > 60 (>60) 06/19/18 07:50 Random Glucose 109 mg/dL (74-106) H 06/19/18 07:50 Calcium 8.8 mg/dL (8.5-10.1) 06/19/18 07:50 Total Bilirubin 0.4 mg/dL (0.2-1.0) 06/19/18 07:50 AST 10 U/L (15-37) L 06/19/18 07:50 ALT 15 U/L (13-61) 06/19/18 07:50 Alkaline Phosphatase 54 U/L (45-117) 06/19/18 07:50 Total Protein 6.3 g/dl (6.4-8.2) L 06/19/18 07:50 Albumin 3.3 g/dl (3.4-5.0) L 06/19/18 07:50 Urine Color Ltyellow 06/19/18 15:43 Urine Appearance Clear 06/19/18 15:43 Urine pH 5.0 (5.0-8.0) D 06/19/18 15:43 Ur Specific [place] 1.019 (1.001-1.035) 06/19/18 15:43 Urine Protein Negative (NEGATIVE) 06/19/18 15:43 Urine Glucose (UA) Negative (NEGATIVE) 06/19/18 15:43 Urine Ketones Negative (NEGATIVE) 06/19/18 15:43 Urine Blood Negative (NEGATIVE) 06/19/18 15:43 Urine Nitrite Negative (NEGATIVE) 06/19/18 15:43 Urine Bilirubin Negative (<2.0 mg/dL) 06/19/18 15:43 Urine Urobilinogen Negative mg/dL (0.2-1.0) 06/19/18 15:43 Ur Leukocyte Esterase Negative (NEGATIVE) 06/19/18 15:43 RPR Titer Nonreactive (NONREACTIVE) 06/19/18 07:50 HIV 1&2 Antibody Screen Negative 06/19/18 07:50 HIV P24 Antigen Negative 06/19/18 07:50 Labs reviewed. - Treatment Hospital Course: Detox Protocol Followed, Detoxed Safely, Responded well, Discharged Condition Good, Rehab Referral Accepted ([facility] ) Patient has Accepted a Rehab Referral to: [facility] - Medication Discharge Medications: Ambulatory Orders Amlodipine Besylate [Norvasc -] 5 mg PO DAILY #30 tablet 06/22/18 Lisinopril 10 mg PO DAILY #30 tablet 06/22/18 Nicotine Polacrilex [Nicorelief -] 2 mg BC Q2H PRN #90 gum 06/23/18 - Diagnosis (1) Alcohol dependence with uncomplicated withdrawal Current Visit: Yes Status: Acute (2) Cannabis dependence Current Visit: Yes Status: Acute (3) Cocaine dependence, uncomplicated Current Visit: Yes Status: Acute (4) Nicotine dependence Current Visit: Yes Status: Acute Qualifiers: Nicotine product type: cigarettes Substance use status: in withdrawal Qualified Code(s): F17.213 - Nicotine dependence, cigarettes, with withdrawal (5) Obesity Current Visit: Yes Status: Chronic Qualifiers: Obesity type: unspecified obesity type Obesity classification: adult class 1 (BMI 30 - 34.9) Serious obesity comorbidity presence: unspecified whether serious comorbidity present (6) Opioid dependence with withdrawal Current Visit: Yes Status: Acute (7) HTN (hypertension) Current Visit: Yes Status: Chronic Qualifiers: Hypertension type: essential hypertension Qualified Code(s): I10 - Essential (primary) hypertension (8) Abrasion Current Visit: Yes Status: Acute - AMA Did Patient Leave Against Medical Advice: No
[2018-06-23 09:49] VITALS: BP 143/88; PULSE 100; TEMP 97.7
== END 2018-06-23 09:45 | disposition home or self-care (01) | DRG 773 ==
LOC: YASAS 12:14 → Y6N 17:50
PROC: HZ2ZZZZ Detoxification Services for Substance Abuse Treatment (ICD-10-PCS; principal; 2018-06-18)
DX: F11.23 Opioid dependence with withdrawal (principal); F10.230 Alcohol dependence with withdrawal, uncomplicated; F14.20 Cocaine dependence, uncomplicated; F12.20 Cannabis dependence, uncomplicated; F17.213 Nicotine dependence, cigarettes, with withdrawal; F19.24 Other psychoactive substance dependence with psychoactive substance-induced mood disorder; F43.10 Post-traumatic stress disorder, unspecified; F20.9 Schizophrenia, unspecified; F31.9 Bipolar disorder, unspecified; G47.00 Insomnia, unspecified; I10 Essential (primary) hypertension; E66.9 Obesity, unspecified; Z68.32 Body mass index [BMI] 32.0-32.9, adult; S90.812A Abrasion, left foot, initial encounter; X58.XXXA Exposure to other specified factors, initial encounter; Y93.9 Activity, unspecified; Y92.9 Unspecified place or not applicable; Y99.9 Unspecified external cause status
CPT/HCPCS: 36415; 80053; 81003; 85027; 86593; 87389; 93005; 93010; J0735

== ENCOUNTER 2018-11-10 13:42 | Inpatient (IN) | payer OTHER ==
[2018-11-10 16:28] VITALS: BMI 34.4
--- NOTE | 2018-11-10 20:12 | HP ---
COWS - Scale Resting Pulse: 1= [place] 81-100 Sweatin=Flushed/Facial Moisture Restless Observation: 1= Difficult to Sit Still Pupil Size: 1= Pupils >than Normal Bone or Joint Aches: 0= None Runny Nose/ Eye Tearin= Runny Nose/Eyes GI Upset > 30mins: 1= Stomach Cramp Tremor Observation: 1= Tremor [place], Not Seen Yawning Observation: 1= 1-2x During Session Anxiety or Irritability: 2=Irritable/Anxious Goose Flesh Skin: 0=Smooth Skin COWS Score: 12 CIWA Score Nausea/Vomitin Muscle Tremors: 3 Anxiety: 2 Agitation: 1-Slight > Activity Paroxysmal Sweats: 3 Orientation: 0-Oriented Tacttile Disturbances: 0-None Auditory Disturbances: 0-None Visual Disturbances: 0-None Headache: 0-None Present CIWA-Ar Total Score: 12 - Admission Criteria OAS Guidelines: Admission for Medically Managed Detox: Requires at least one of the followin. CIWA greater than 12 2. Seizures within the past 24 hours 3. Delirium tremens within the past 24 hours 4. Hallucinations within the past 24 hours 5. Acute intervention needed for co occurring medical disorder 6. Acute intervention needed for co occurring psychiatric disorder 7. Severe withdrawal that cannot be handled at a lower level of care (continued vomiting, continued diarrhea, abnormal vital signs) requiring intravenous medication and/or fluids 8. Patient presents the following: CIWA greater than 12 Admission Criteria Met: Admission criteria met Admission ROS [facility] Chief Complaint: " I need detox" Allergies/Adverse Reactions: Allergies Allergy/AdvReac Type Severity Reaction Status Date / Time Fish Containing Products Allergy Severe Hives Verified 11/10/18 19:37 tomato Allergy Severe Hives Verified 11/10/18 19:37 No Known Drug Allergies Allergy Verified 11/10/18 19:37 History of Present Illness: 48 yo male with hx of alcohol, nicontine , THC and heroin (nasal) dependence is here seeking detox and c/o abdominal cramps secondary to withdrawal. Last detox [facility] 2017.PMHX: HTN. Denies any psychiatric hx. Denies suicidal / homicidal ideation or hx of suicide attempt. Denies hx of seizures or blackouts. Longest period of sobriety two years. Exam Limitations: No Limitations - Ebola screening Have you traveled outside of the country in the last 21 days: No Have you had contact with anyone from an Ebola affected area: No Have you been sick,other than usual withdrawal symptoms: No Do you have a fever: No - Review of Systems Constitutional: Chills, Changes in sleep EENT: reports: No Symptoms Reported Respiratory: reports: No Symptoms reported Cardiac: reports: No Symptoms Reported GI: reports: Nausea, Poor Fluid Intake, Indigestion, Abdominal cramping : reports: No Symptoms Reported Musculoskeletal: reports: Back Pain Integumentary: reports: No Symptoms Reported Neuro: reports: No Symptoms reported Endocrine: reports: Increased Thirst Hematology: reports: No Symptoms Reported Psychiatric: reports: Orientated x3, Anxious Other Systems: Reviewed and Negative Patient History - Patient Medical History Hx Anemia: No Hx Asthma: No Hx Chronic Obstructive Pulmonary Disease (COPD): No Hx Cancer: No Hx Cardiac Disorders: No Hx Congestive Heart Failure: No Hx Hypertension: Yes (Norvasc 5mg / Lisinopril 10 mg ) Hx Hypercholesterolemia: No Hx Pacemaker: No HX Cerebrovascular Accident: No Hx Seizures: No Hx Dementia: No Hx Diabetes: No Hx Gastrointestinal Disorders: No Hx Liver Disease: No Hx Genitourinary Disorders: No Hx Sexually Transmitted Disorders: No Hx Renal Disease (ESRD): No Hx Thyroid Disease: No Hx Human Immunodeficiency Virus (HIV): No (03/20 LAST NEGATIVE) Hx Hepatitis C: No Hx Depression: No Hx Suicide Attempt: No Hx Bipolar Disorder: No Hx Schizophrenia: No - Patient Surgical History Past Surgical History: Yes Hx Neurologic Surgery: No Hx Cataract Extraction: No Hx Cardiac Surgery: No Hx Lung Surgery: No Hx Breast Surgery: No Hx Breast Biopsy: No Hx Abdominal Surgery: Yes Hx Appendectomy: No Hx Cholecystectomy: No Hx Genitourinary Surgery: No Hx Section: No Hx Orthopedic Surgery: No Other Surgical History: R inguinal hernia and umbillical hernia repair. Anesthesia Reaction: No - PPD History Previous Implant?: No Documented Results: Negative w/o proof Date: 12/09/15 Results: 0 mm PPD to be Administered?: Yes - Smoking Cessation Smoking history: Current every day smoker Have you smoked in the past 12 months: Yes Aproximately how many cigarettes per day: 10 Hx Chewing Tobacco Use: No Initiated information on smoking cessation: Yes 'Breaking Loose' booklet given: 11/10/18 - Substance & Tx. History Hx Alcohol Use: Yes Hx Substance Use: Yes Substance Use Type: Alcohol, Cocaine, Heroin Hx Substance Use Treatment: Yes (Detox [facility] June 2018) - Substances Abused Alcohol Route: Oral Frequency: Daily Amount used: 1 [employer] 12/160Z P[employer] Age of first use: 21 Date of Last Use: 11/10/18 Heroin Route: SNIFF Frequency: Daily Amount used: 10 BAGS Age of first use: 37 Date of Last Use: 11/10/18 Family Disease History - Family Disease History Family Disease History: Diabetes: Mother Admission Physical Exam [facility] - Vital Signs Vital Signs: Vital Signs - 24 hr 11/10/18 16:26 Temperature 97 F L Pulse Rate 94 H Respiratory 20 Rate Blood Pressure 141/90 - Physical General Appearance: Yes: Appropriately Dressed, Obese, Sweating, Anxious HEENTM: Yes: EOMI, Hearing grossly Normal, Normal ENT Inspection, Normocephalic , Normal Voice, VICENTA, Pharynx Normal, Tm's normal, Other (dry mucous membranes) Respiratory: Yes: Chest Non-Tender, Lungs Clear, Normal Breath Sounds, No Respiratory Distress, No Accessory Muscle Use Neck: Yes: Within Normal Limits Breast: Yes: Breast Exam Deferred Cardiology: Yes: Regular Rhythm, Regular Rate Abdominal: Yes: Normal Bowel Sounds, Non Tender, Protuberent Genitourinary: Yes: Within Normal Limits Back: Yes: Within Normal Limits Musculoskeletal: Yes: full range of Motion, Gait Steady, Pelvis Stable Extremities: Yes: Normal Capillary Refill, Normal Inspection, Normal Range of Motion, Non-Tender 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, Fully Oriented, Motor Strength 5/5 Integumentary: Yes: Normal Color, Warm, Diaphoresis Lymphatic: Yes: Within Normal Limits - Diagnostic (1) Alcohol dependence with uncomplicated withdrawal Current Visit: Yes Status: Acute (2) Nicotine dependence Current Visit: Yes Status: Acute Qualifiers: Nicotine product type: cigarettes Substance use status: in withdrawal Qualified Code(s): F17.213 - Nicotine dependence, cigarettes, with withdrawal (3) Opioid dependence with withdrawal Current Visit: Yes Status: Acute (4) HTN (hypertension) Current Visit: Yes Status: Chronic Qualifiers: Hypertension type: essential hypertension Qualified Code(s): I10 - Essential (primary) hypertension (5) Obesity Current Visit: Yes Status: Chronic Qualifiers: Obesity type: unspecified obesity type Obesity classification: adult class 1 (BMI 30 - 34.9) Serious obesity comorbidity presence: unspecified whether serious comorbidity present Body mass index: BMI 34.0-34.9 Qualified Code(s) : E66.9 - Obesity, unspecified; Z68.34 - Body mass index (BMI) 34.0-34.9, adult Cleared for Admission [facility] - Detox or Rehab [facility] Level of Care: Medically Managed Detox Regimen/Protocol: Methadone/Librium S Breath Alcohol Content Breath Alcohol Content: 0 Urine Drug Screen - Results Drug Screen Negative: No Urine Drug Screen Results: THC-Marijuana, RICKIE-Cocaine, OPI-Opiates, BZO- Benzodiazepines Inpatient Rehab Admission - Rehab Decision to Admit Inpatient rehab admission?: No
[2018-11-10] MEDS ORDERED: MENTHOL/PHENOL 1 EACH UD MM PRN (20:15)
[2018-11-10] MEDS ORDERED: MAGNESIUM HYDROX 2400MG/30ML ORAL SUSPENSION 30 ML CUP PO PRN (20:15)
[2018-11-10] MEDS ORDERED: NICOTINE POLACRILEX 2 MG GUM BC PRN (20:15)
[2018-11-10] MEDS ORDERED: IBUPROFEN 400 MG TABLET (FP) PO PRN (20:15)
[2018-11-10] MEDS ORDERED: LOPERAMIDE HCL 2 MG CAPSULE PO PRN (20:15)
[2018-11-10] MEDS ORDERED: MAG HYDROX/AL HYDROX/SIMETH 30 ML UNIT-DOSE CUP PO PRN (20:15)
[2018-11-10] MEDS ORDERED: chlordiazePOXIDE HCL 25 MG CAPSULE PO PRN (20:15)
[2018-11-10] MEDS ORDERED: MAGNESIUM CITRATE 300 ML BOTTLE PO PRN (20:15)
[2018-11-10] MEDS ORDERED: guaiFENesin/D-METHORPHAN HB 10 ML UNIT-DOSE CUPS PO PRN (20:15)
[2018-11-10] MEDS ORDERED: P-EPHED 60MG/TRIPROLIDI 2.5MG TABLET PO PRN (20:15)
[2018-11-10] MEDS ORDERED: METHADONE HCL 10 MG TABLET (FOR DETOX USE ONLY) PO ONE ×2 (21:00→23:00)
[2018-11-10] MEDS: chlordiazePOXIDE HCL 25 MG CAPSULE PO SCH (22:14)
[2018-11-10] MEDS: THIAMINE HCL 100 MG TABLET (FP) PO SCH (22:14)
[2018-11-10] MEDS: MELATONIN 5 MG TABLETS PO PRN (23:43)
[2018-11-11] MEDS: chlordiazePOXIDE HCL 25 MG CAPSULE PO SCH ×4 (05:52→22:12)
[2018-11-11] MEDS ORDERED: amLODIPine BESYLATE 5 MG TABLET (FP) PO SCH (10:00)
[2018-11-11] MEDS ORDERED: METHADONE HCL 10 MG TABLET (FOR DETOX USE ONLY) PO SCH (10:00)
[2018-11-11] MEDS: PRENATAL VITAMINS W/ FOLIC ACID TABLET (FP) PO SCH (10:19)
[2018-11-11] MEDS: LISINOPRIL 10 MG TABLET (FP) PO SCH (10:19)
[2018-11-11] MEDS: NICOTINE 14 MG/24 HOURS TOPICAL PATCH TD SCH (10:20)
[2018-11-11 10:32] LABS: HEMATOCRIT 42.7 % (35.4-49); HEMOGLOBIN 14.5 GM/dL (11.7-16.9); MCH 30.4 pg (25.7-33.7); MEAN CELL VOLUME 89.5 fl (80-96); MEAN PLT VOLUME 10.6 fl (7.5-11.1); PLATELET COUNT 150 K/MM3 (134-434); RBC 4.77 M/mm3 (4.00-5.60); RDW 14.1 % (11.9-15.9); WHITE BLOOD COUNT 7.7 K/mm3 (4.0-10.0)
[2018-11-11 10:56] LABS: ALBUMIN 3.8 g/dl (3.4-5.0); ALK PHOS 81 U/L (45-117); ANION GAP 7 MMOL/L (8-16); BILIRUBIN,TOTAL 0.3 mg/dL (0.2-1); BLOOD UREA NITROGEN 24 mg/dL (7-18); CALCIUM 9.2 mg/dL (8.5-10.1); CHLORIDE 103 mmol/L (98-107); CO2 28 mmol/L (21-32); CREATININE 1.4 mg/dL (0.55-1.3); GLUCOSE,RANDOM 158 mg/dL (74-106); POTASSIUM 4.3 mmol/L (3.5-5.1); SGOT/AST 18 U/L (15-37); SGPT/ALT 23 U/L (13-61); SODIUM 138 mmol/L (136-145); TOT PROT 6.8 g/dl (6.4-8.2)
[2018-11-11] MEDS ORDERED: amLODIPine BESYLATE 5 MG TABLET (FP) PO ONE (15:23)
--- NOTE | 2018-11-11 15:25 | PN ---
S CIWA - CIWA Score Nausea/Vomitin Muscle Tremors: None Anxiety: 2 Agitation: 0-Normal Activity Paroxysmal Sweats: No Perspiration Orientation: 0-Oriented Tacttile Disturbances: 2-Mild Itch/Numbness/Burn Auditory Disturbances: 1-Very Mild Visual Disturbances: 2-Mild Sensitivity Headache: 0-None Present CIWA-Ar Total Score: 10 BHS COWS - Scale Resting Pulse: 2= [place] 101-120 Sweatin= Chills/Flushing Restless Observation: 1= Difficult to Sit Still Pupil Size: 0= Normal to Room Light Bone or Joint Aches: 2= Severe Diffuse Aches Runny Nose/ Eye Tearin= None GI Upset > 30mins: 2= Nausea/Diarrhea Tremor Observation of Outstretched Hands: 2= Slight Tremor Visible Yawning Observation: 1= 1-2x During Session Anxiety or Irritability: 2=Irritable/Anxious Goose Flesh Skin: 0=Smooth Skin COWS Score: 13 BHS Progress Note (SOAP) Subjective: Sweating, Nausea, Diarrhea, Sweating. Objective: PATIENT A & O X 3, OBSERVED AMBULATING ON UNIT. IN NO ACUTE DISTRESS. 11/11/18 15:21 Vital Signs Temperature 96.6 F L 11/11/18 13:55 Pulse Rate 104 H 11/11/18 13:55 Respiratory Rate 19 11/11/18 13:55 Blood Pressure 143/92 11/11/18 13:55 O2 Sat by Pulse Oximetry (%) Laboratory Tests 11/11/18 11/11/18 11/11/18 07:00 07:00 07:00 WBC 7.7 RBC 4.77 Hgb 14.5 Hct 42.7 MCV 89.5 MCH 30.4 MCHC 34.0 RDW 14.1 Plt Count 150 MPV 10.6 Sodium 138 Potassium 4.3 Chloride 103 Carbon Dioxide 28 Anion Gap 7 L BUN 24 H Creatinine 1.4 H Creat Clearance w eGFR 54.56 Random Glucose 158 H Calcium 9.2 Total Bilirubin 0.3 AST 18 ALT 23 Alkaline Phosphatase 81 Total Protein 6.8 Albumin 3.8 RPR Titer Nonreactive LABS NOTED. Assessment: 11/11/18 15:21 WITHDRAWAL SYMPTOMS. HYPERTENSION. 11/11/18 15:27 Plan: CONTINUE DETOX. INCREASE DAILY PO FLUID INTAKE. PRN IMMODIUM FOR DIARRHEA. PRN TIGAN PO FOR NAUSEA. D/C IBUPROFEN AND MAGNESIUM-CONTAINING MEDS. FOR ABNORMAL ADMISSION RENAL LAB VALUES. BMP ON 11/13/2018 FOR ABNORMAL ADMISSION RENAL LAB VALUES. BGM ACBK FOR ELEVATED ADMISSION RANDOM GLUCOSE LEVEL. INCREASE DAILY DOSE OF AMLODIPINE TO 10 MG PO DAILY FOR ELEVATED BP DESPITE TREATMENT.
--- NOTE | 2018-11-11 16:47 | EKG ---
Test Reason : Blood Pressure : / mmHG Vent. Rate : 092 BPM Atrial Rate : 092 BPM P-R Int : 168 ms QRS Dur : 100 ms QT Int : 388 ms P-R-T Axes : 069 056 043 degrees QTc Int : 479 ms NORMAL SINUS RHYTHM NONSPECIFIC T WAVE ABNORMALITY PROLONGED QT ABNORMAL ECG WHEN COMPARED WITH ECG OF 10-NOV-2018 21:23, NO SIGNIFICANT CHANGE WAS FOUND Confirmed by AZNDER TEJADA, TARYN ([id number]) on 11/11/2018 4:46:43 PM Referred By: TARAN PORTER Confirmed By:TARYN FERMIN MD
[2018-11-11] MEDS: ACETAMINOPHEN 325 MG TABLET (FP) PO PRN (19:26)
[2018-11-11] MEDS: THIAMINE HCL 100 MG TABLET (FP) PO SCH (22:11)
[2018-11-11] MEDS: MELATONIN 5 MG TABLETS PO PRN (22:12)
[2018-11-12] MEDS: chlordiazePOXIDE HCL 25 MG CAPSULE PO SCH ×3 (06:24→16:59)
[2018-11-12] MEDS: amLODIPine BESYLATE 10 MG TABLET (FP) PO SCH (10:38)
[2018-11-12] MEDS: NICOTINE 14 MG/24 HOURS TOPICAL PATCH TD SCH (10:38)
[2018-11-12] MEDS: PRENATAL VITAMINS W/ FOLIC ACID TABLET (FP) PO SCH (10:38)
[2018-11-12] MEDS: METHADONE HCL 5 MG TABLET (FOR DETOX USE ONLY) PO SCH (10:38)
[2018-11-12] MEDS: LISINOPRIL 10 MG TABLET (FP) PO SCH (10:38)
--- NOTE | 2018-11-12 13:22 | PN ---
[facility] CIWA - CIWA Score Nausea/Vomitin-No Nausea/No Vomiting Muscle Tremors: 3 Anxiety: 3 Agitation: 3 Paroxysmal Sweats: 3 Orientation: 0-Oriented Tacttile Disturbances: 0-None Auditory Disturbances: 0-None Visual Disturbances: 0-None Headache: 0-None Present CIWA-Ar Total Score: 12 BHS COWS - Scale Resting Pulse: 1= [place] 81-100 Sweatin=Flushed/Facial Moisture Restless Observation: 1= Difficult to Sit Still Pupil Size: 0= Normal to Room Light Bone or Joint Aches: 2= Severe Diffuse Aches Runny Nose/ Eye Tearin= None GI Upset > 30mins: 0= None Tremor Observation of Outstretched Hands: 2= Slight Tremor Visible Yawning Observation: 2= >3x During Session Anxiety or Irritability: 2=Irritable/Anxious Goose Flesh Skin: 0=Smooth Skin COWS Score: 12 S Progress Note (SOAP) Subjective: agitation sweats mild shakes interrupted sleep Objective: 11/12/18 13:21 Vital Signs Temperature 98.2 F 11/12/18 09:11 Pulse Rate 99 H 11/12/18 09:11 Respiratory Rate 19 11/12/18 09:11 Blood Pressure 141/95 11/12/18 09:11 O2 Sat by Pulse Oximetry (%) Laboratory Tests 11/11/18 11/11/18 11/11/18 07:00 07:00 07:00 WBC 7.7 RBC 4.77 Hgb 14.5 Hct 42.7 MCV 89.5 MCH 30.4 MCHC 34.0 RDW 14.1 Plt Count 150 MPV 10.6 Sodium 138 Potassium 4.3 Chloride 103 Carbon Dioxide 28 Anion Gap 7 L BUN 24 H Creatinine 1.4 H Creat Clearance w eGFR 54.56 POC Glucometer Random Glucose 158 H Calcium 9.2 Total Bilirubin 0.3 AST 18 ALT 23 Alkaline Phosphatase 81 Total Protein 6.8 Albumin 3.8 RPR Titer Nonreactive 11/12/18 06:27 WBC RBC Hgb Hct MCV MCH MCHC RDW Plt Count MPV Sodium Potassium Chloride Carbon Dioxide Anion Gap BUN Creatinine Creat Clearance w eGFR POC Glucometer 93 Random Glucose Calcium Total Bilirubin AST ALT Alkaline Phosphatase Total Protein Albumin RPR Titer labs noted pt states he is not a diabetic will d/c bgm aaox3 ambulating no acute distress Assessment: 11/12/18 13:22 withdrawal sx Plan: continue detox increase fluids
[2018-11-13] MEDS: THIAMINE HCL 100 MG TABLET (FP) PO SCH ×2 (00:05→23:13)
[2018-11-13] MEDS: chlordiazePOXIDE 5 MG CAPSULE PO SCH ×4 (00:05→17:28)
[2018-11-13] MEDS: ACETAMINOPHEN 325 MG TABLET (FP) PO PRN ×2 (02:54→17:29)
[2018-11-13] MEDS: PRENATAL VITAMINS W/ FOLIC ACID TABLET (FP) PO SCH (10:34)
[2018-11-13] MEDS: amLODIPine BESYLATE 10 MG TABLET (FP) PO SCH (10:34)
[2018-11-13] MEDS: METHADONE HCL 5 MG TABLET (FOR DETOX USE ONLY) PO SCH (10:35)
[2018-11-13] MEDS: NICOTINE 14 MG/24 HOURS TOPICAL PATCH TD SCH (10:36)
[2018-11-13] MEDS: LISINOPRIL 10 MG TABLET (FP) PO SCH (10:38)
[2018-11-13 11:33] LABS: ANION GAP 6 MMOL/L (8-16); BLOOD UREA NITROGEN 20 mg/dL (7-18); CALCIUM 9.1 mg/dL (8.5-10.1); CHLORIDE 103 mmol/L (98-107); CO2 28 mmol/L (21-32); CREATININE 1.4 mg/dL (0.55-1.3); GLUCOSE,RANDOM 135 mg/dL (74-106); POTASSIUM 4.2 mmol/L (3.5-5.1); SODIUM 137 mmol/L (136-145)
--- NOTE | 2018-11-13 15:44 | PN ---
S Progress Note (SOAP) Subjective: c/o about repeated blood draws, wants to know why sweats tired Objective: 11/13/18 15:39 A & O x 3 No acute distress noted Vital Signs Temperature 97.7 F 11/13/18 14:24 Pulse Rate 96 H 11/13/18 14:24 Respiratory Rate 16 11/13/18 14:24 Blood Pressure 135/77 11/13/18 14:24 O2 Sat by Pulse Oximetry (%) Laboratory Last Values WBC 7.7 K/mm3 (4.0-10.0) 11/11/18 07:00 RBC 4.77 M/mm3 (4.00-5.60) 11/11/18 07:00 Hgb 14.5 GM/dL (11.7-16.9) 11/11/18 07:00 Hct 42.7 % (35.4-49) 11/11/18 07:00 MCV 89.5 fl (80-96) 11/11/18 07:00 MCH 30.4 pg (25.7-33.7) 11/11/18 07:00 MCHC 34.0 g/dl (32.0-35.9) 11/11/18 07:00 RDW 14.1 % (11.9-15.9) 11/11/18 07:00 Plt Count 150 K/MM3 (134-434) 11/11/18 07:00 MPV 10.6 fl (7.5-11.1) 11/11/18 07:00 Sodium 137 mmol/L (136-145) 11/13/18 07:40 Potassium 4.2 mmol/L (3.5-5.1) 11/13/18 07:40 Chloride 103 mmol/L (98-107) 11/13/18 07:40 Carbon Dioxide 28 mmol/L (21-32) 11/13/18 07:40 Anion Gap 6 MMOL/L (8-16) L 11/13/18 07:40 BUN 20 mg/dL (7-18) H 11/13/18 07:40 Creatinine 1.4 mg/dL (0.55-1.3) H 11/13/18 07:40 Creat Clearance w eGFR 54.56 (>60) 11/13/18 07:40 POC Glucometer 93 UNITS (80-120) 11/12/18 06:27 Random Glucose 135 mg/dL (74-106) H 11/13/18 07:40 Calcium 9.1 mg/dL (8.5-10.1) 11/13/18 07:40 Total Bilirubin 0.3 mg/dL (0.2-1) 11/11/18 07:00 AST 18 U/L (15-37) 11/11/18 07:00 ALT 23 U/L (13-61) 11/11/18 07:00 Alkaline Phosphatase 81 U/L (45-117) 11/11/18 07:00 Total Protein 6.8 g/dl (6.4-8.2) 11/11/18 07:00 Albumin 3.8 g/dl (3.4-5.0) 11/11/18 07:00 RPR Titer Nonreactive (NONREACTIVE) 11/11/18 07:00 noted high serum glucose pt still insist he is not diabetic Assessment: 11/13/18 15:39 withdrawal sx no indication or documented note for repeat blood work Plan: continue detox increase hydration no blood draws unless indicated low sugar diet to encourage diet modification for high blood glucose to be referred to PMD on discharge for blood glucose monitoring
[2018-11-13] MEDS: chlordiazePOXIDE HCL 10 MG CAPSULE PO SCH (23:13)
[2018-11-14] MEDS: chlordiazePOXIDE HCL 10 MG CAPSULE PO SCH ×3 (05:50→18:02)
[2018-11-14] MEDS ORDERED: METHADONE HCL 10 MG TABLET (FOR DETOX USE ONLY) PO SCH (10:00)
[2018-11-14] MEDS: amLODIPine BESYLATE 10 MG TABLET (FP) PO SCH (10:35)
[2018-11-14] MEDS: PRENATAL VITAMINS W/ FOLIC ACID TABLET (FP) PO SCH (10:35)
[2018-11-14] MEDS: NICOTINE 14 MG/24 HOURS TOPICAL PATCH TD SCH (10:35)
[2018-11-14] MEDS: LISINOPRIL 10 MG TABLET (FP) PO SCH (10:35)
--- NOTE | 2018-11-14 15:21 | PN ---
BHS Progress Note (SOAP) Subjective: Denies any withdrawal symptoms; seems a little anxious Objective: 11/14/18 15:16 Last Vital Signs Temp Pulse Resp BP Pulse Ox 97.2 F L 90 16 120/70 11/14/18 13:12 11/14/18 13:12 11/14/18 13:12 11/14/18 13:12 Laboratory Tests 11/11/18 11/11/18 11/11/18 07:00 07:00 07:00 WBC 7.7 RBC 4.77 Hgb 14.5 Hct 42.7 MCV 89.5 MCH 30.4 MCHC 34.0 RDW 14.1 Plt Count 150 MPV 10.6 Sodium 138 Potassium 4.3 Chloride 103 Carbon Dioxide 28 Anion Gap 7 L BUN 24 H Creatinine 1.4 H Creat Clearance w eGFR 54.56 POC Glucometer Random Glucose 158 H Calcium 9.2 Total Bilirubin 0.3 AST 18 ALT 23 Alkaline Phosphatase 81 Total Protein 6.8 Albumin 3.8 RPR Titer Nonreactive 11/12/18 11/13/18 06:27 07:40 WBC RBC Hgb Hct MCV MCH MCHC RDW Plt Count MPV Sodium 137 Potassium 4.2 Chloride 103 Carbon Dioxide 28 Anion Gap 6 L BUN 20 H Creatinine 1.4 H Creat Clearance w eGFR 54.56 POC Glucometer 93 Random Glucose 135 H Calcium 9.1 Total Bilirubin AST ALT Alkaline Phosphatase Total Protein Albumin RPR Titer Labs reviewed: JOZEF and hyperglycemia noted Assessment: 11/14/18 15:18 Withdrawal symptoms Noted with JOZEF and hyperglycemia Plan: Continue detox JOZFE: encouraged PO water hydration, discontinue lisinopril Hyperglycemia: denies dm, could be r/t withdrawal Follow up with PCP in 1 week after discharge for evaluation
[2018-11-14] MEDS: THIAMINE HCL 100 MG TABLET (FP) PO SCH (22:02)
[2018-11-14] MEDS: MELATONIN 5 MG TABLETS PO PRN (22:02)
[2018-11-15] MEDS ORDERED: METHADONE HCL 5 MG TABLET (FOR DETOX USE ONLY) PO SCH (06:00)
[2018-11-15 06:55] VITALS: BP 137/92; PULSE 86; TEMP 97.3
--- NOTE | 2018-11-15 16:49 | DS ---
[facility] Detox Discharge Summary Admission Date: 11/10/18 Discharge Date: 11/15/18 - History Present History: Alcohol Dependence, Opioid Dependence Additional Comments: PATIENT GOING TO [facility] ([place], [place]) FOR AFTERCARE. PATIENT WAS DISCHARGED FROM DETOX UNIT IN STABLE MEDICAL CONDITION. Pertinent Past History: HTN, Nicotine Dependence, Obesity. - Physical Exam Results Vital Signs: Vital Signs Temperature 97.3 F L 11/15/18 06:54 Pulse Rate 86 11/15/18 06:54 Respiratory Rate 20 11/15/18 06:54 Blood Pressure 137/92 11/15/18 06:54 O2 Sat by Pulse Oximetry (%) Pertinent Admission Physical Exam Findings: WITHDRAWAL SYMPTOMS. Laboratory Tests 11/11/18 11/11/18 11/11/18 07:00 07:00 07:00 WBC 7.7 RBC 4.77 Hgb 14.5 Hct 42.7 MCV 89.5 MCH 30.4 MCHC 34.0 RDW 14.1 Plt Count 150 MPV 10.6 Sodium 138 Potassium 4.3 Chloride 103 Carbon Dioxide 28 Anion Gap 7 L BUN 24 H Creatinine 1.4 H Creat Clearance w eGFR 54.56 POC Glucometer Random Glucose 158 H Calcium 9.2 Total Bilirubin 0.3 AST 18 ALT 23 Alkaline Phosphatase 81 Total Protein 6.8 Albumin 3.8 RPR Titer Nonreactive 11/12/18 11/13/18 06:27 07:40 WBC RBC Hgb Hct MCV MCH MCHC RDW Plt Count MPV Sodium 137 Potassium 4.2 Chloride 103 Carbon Dioxide 28 Anion Gap 6 L BUN 20 H Creatinine 1.4 H Creat Clearance w eGFR 54.56 POC Glucometer 93 Random Glucose 135 H Calcium 9.1 Total Bilirubin AST ALT Alkaline Phosphatase Total Protein Albumin RPR Titer LABS NOTED. - Treatment Hospital Course: Detox Protocol Followed, Detoxed Safely, Responded well, Discharged Condition Good Patient has Accepted a Rehab Referral to: PT. MARCOS, GOING TO [facility] ([place], [place]). - Medication Discharge Medications: Ambulatory Orders Amlodipine Besylate [Norvasc -] 5 mg PO DAILY #30 tablet 06/22/18 Amlodipine Besylate [Norvasc -] 10 mg PO DAILY #30 tablet 11/15/18 Lisinopril 10 mg PO DAILY #30 tablet 11/15/18 - Diagnosis (1) Alcohol dependence with uncomplicated withdrawal Status: Acute (2) Opioid dependence with withdrawal Status: Acute (3) HTN (hypertension) Status: Chronic Qualifiers: Hypertension type: essential hypertension Qualified Code(s): I10 - Essential (primary) hypertension (4) Nicotine dependence Status: Chronic Qualifiers: Nicotine product type: cigarettes Substance use status: in withdrawal Qualified Code(s): F17.213 - Nicotine dependence, cigarettes, with withdrawal (5) Obesity Status: Chronic Qualifiers: Obesity type: unspecified obesity type Obesity classification: adult class 1 (BMI 30 - 34.9) Serious obesity comorbidity presence: unspecified whether serious comorbidity present Body mass index: BMI 34.0-34.9 Qualified Code(s) : E66.9 - Obesity, unspecified; Z68.34 - Body mass index (BMI) 34.0-34.9, adult - AMA Did Patient Leave Against Medical Advice: No
== END 2018-11-15 08:55 | disposition home or self-care (01) | DRG 773 ==
LOC: YASAS 13:42 → Y6N 19:21
PROVIDERS: ADMIT Surgery; ATTEND Surgery
PROC: HZ2ZZZZ Detoxification Services for Substance Abuse Treatment (ICD-10-PCS; principal; 2018-11-10)
DX: F11.23 Opioid dependence with withdrawal (principal); F10.230 Alcohol dependence with withdrawal, uncomplicated; F14.20 Cocaine dependence, uncomplicated; F17.213 Nicotine dependence, cigarettes, with withdrawal; I10 Essential (primary) hypertension; N17.9 Acute kidney failure, unspecified; R73.9 Hyperglycemia, unspecified; E66.9 Obesity, unspecified; Z68.34 Body mass index [BMI] 34.0-34.9, adult; Z91.013 Allergy to seafood
CPT/HCPCS: 36415; 80048; 80053; 82962; 85027; 86593; 93005; 93010

== ENCOUNTER 2019-01-27 10:52 | Inpatient (IN) | payer OTHER ==
[2019-01-27 11:44] VITALS: BMI 33.7
--- NOTE | 2019-01-27 12:56 | HP ---
COWS - Scale Resting Pulse: 0= [place] 80 or Below Sweatin= No chills or Flushing Restless Observation: 0= Sits Still Pupil Size: 0= Normal to Room Light Bone or Joint Aches: 0= None Runny Nose/ Eye Tearin= Runny Nose/Eyes GI Upset > 30mins: 2= Nausea/Diarrhea Tremor Observation: 0= None Yawning Observation: 0= None Anxiety or Irritability: 0= None Goose Flesh Skin: 0=Smooth Skin COWS Score: 4 CIWA Score Nausea/Vomitin Muscle Tremors: 1-None Visible, but [place] Anxiety: 2 Agitation: 0-Normal Activity Paroxysmal Sweats: No Perspiration Orientation: 0-Oriented Tacttile Disturbances: 0-None Auditory Disturbances: 0-None Visual Disturbances: 0-None Headache: 0-None Present CIWA-Ar Total Score: 5 - Admission Criteria OASAS Guidelines: Admission for Medically Managed Detox: Requires at least one of the followin. CIWA greater than 12 2. Seizures within the past 24 hours 3. Delirium tremens within the past 24 hours 4. Hallucinations within the past 24 hours 5. Acute intervention needed for co occurring medical disorder 6. Acute intervention needed for co occurring psychiatric disorder 7. Severe withdrawal that cannot be handled at a lower level of care (continued vomiting, continued diarrhea, abnormal vital signs) requiring intravenous medication and/or fluids 8. Admission ROS [facility] Chief Complaint: "alcohol and heroin withdrawal sx " Allergies/Adverse Reactions: Allergies Allergy/AdvReac Type Severity Reaction Status Date / Time Fish Containing Products Allergy Severe Hives Verified 01/27/19 11:35 tomato Allergy Severe Hives Verified 01/27/19 11:35 No Known Drug Allergies Allergy Verified 01/27/19 11:35 History of Present Illness: 48 yo male with hx of alcohol, nicotine , THC and heroin (nasal) dependence is here seeking detox. Patient completed detox opioid and alcohol "couple weeks ago " at [facility]. PMHX: HTN. Denies any psychiatric hx. Denies suicidal / homicidal ideation or hx of suicide attempt. Denies hx of seizures, blackouts or overdose. Longest period of sobriety two years Exam Limitations: No Limitations - Ebola screening Have you traveled outside of the country in the last 21 days: No Have you had contact with anyone from an Ebola affected area: No Do you have a fever: No - Review of Systems Constitutional: Changes in sleep EENT: reports: No Symptoms Reported Respiratory: reports: No Symptoms reported Cardiac: reports: No Symptoms Reported GI: reports: Nausea, Other (loose stools) Musculoskeletal: reports: No Symptoms Reported Integumentary: reports: No Symptoms Reported Neuro: reports: No Symptoms reported Endocrine: reports: No Symptoms Reported Hematology: reports: No Symptoms Reported Psychiatric: reports: Orientated x3, Anxious Other Systems: Reviewed and Negative Patient History - Patient Medical History Hx Anemia: No Hx Asthma: No Hx Chronic Obstructive Pulmonary Disease (COPD): No Hx Cancer: No Hx Cardiac Disorders: No Hx Congestive Heart Failure: No Hx Hypertension: Yes (Norvasc 5mg / Lisinopril 10 mg ) Hx Hypercholesterolemia: No Hx Pacemaker: No HX Cerebrovascular Accident: No Hx Seizures: No Hx Dementia: No Hx Diabetes: No Hx Gastrointestinal Disorders: No Hx Liver Disease: No Hx Genitourinary Disorders: No Hx Sexually Transmitted Disorders: No Hx Renal Disease (ESRD): No Hx Thyroid Disease: No Hx Human Immunodeficiency Virus (HIV): No (03/20 LAST NEGATIVE) Hx Hepatitis C: No Hx Depression: No Hx Suicide Attempt: No Hx Bipolar Disorder: No Hx Schizophrenia: No - Patient Surgical History Past Surgical History: Yes Hx Neurologic Surgery: No Hx Cataract Extraction: No Hx Cardiac Surgery: No Hx Lung Surgery: No Hx Breast Surgery: No Hx Breast Biopsy: No Hx Abdominal Surgery: Yes Hx Appendectomy: No Hx Cholecystectomy: No Hx Genitourinary Surgery: No Hx Section: No Hx Orthopedic Surgery: No Other Surgical History: R inguinal hernia and umbillical hernia repair. Anesthesia Reaction: No - PPD History Date: 11/13/18 Results: 0 mm - Smoking Cessation Smoking history: Current every day smoker Have you smoked in the past 12 months: Yes Aproximately how many cigarettes per day: 10 Hx Chewing Tobacco Use: No Initiated information on smoking cessation: Yes 'Breaking Loose' booklet given: 01/27/19 - Substance & Tx. History Hx Alcohol Use: Yes Hx Substance Use: Yes Substance Use Type: Heroin, Marijuana Hx Substance Use Treatment: Yes (detox opioid and alcohol "couple weeks ago" at [facility] - Substances abused Alcohol Substance route: Oral Frequency: Daily Amount used: 1 pt. liquor, 12 cans beers (16 oz) Age of first use: 21 Date of last use: 01/26/19 Heroin Substance route: Inhalation Frequency: Daily Amount used: 12 bags Age of first use: 37 Date of last use: 01/26/19 Marijuana/Hashish Substance route: Smoking Frequency: Daily Amount used: 5 blunts Age of first use: 19 Date of last use: 01/27/19 Family Disease History - Family Disease History Family Disease History: Diabetes: Mother Admission Physical Exam [facility] - Vital Signs Vital Signs: Vital Signs - 24 hr 01/27/19 01/27/19 11:32 11:43 Temperature 98.1 F 98.1 F Pulse Rate 74 74 Respiratory 18 18 Rate Blood Pressure 131/77 131/77 - Physical General Appearance: Yes: Appropriately Dressed, Obese, Other (body ordor) HEENTM: Yes: EOMI, Hearing grossly Normal, Normal ENT Inspection, Normocephalic , Normal Voice, VICENTA, Pharynx Normal, Tm's normal Respiratory: Yes: Within Normal Limits Neck: Yes: Within Normal Limits Breast: Yes: Breast Exam Deferred Cardiology: Yes: Regular Rhythm, Regular Rate Abdominal: Yes: Normal Bowel Sounds, Non Tender, Soft, Protuberent Genitourinary: Yes: Within Normal Limits Back: Yes: Normal Inspection Musculoskeletal: Yes: full range of Motion, Gait Steady, Pelvis Stable Extremities: Yes: Normal Capillary Refill, Normal Inspection, Normal Range of Motion, Non-Tender Neurological: Yes: Within Normal Limits, customs entry clerk II-XII NML intact, Fully Oriented, Alert, Motor Strength 5/5, Depressed Affect Integumentary: Yes: Normal Color, Dry, Warm Lymphatic: Yes: Within Normal Limits - Addiitonal Findings: Base on patient physical presentation, patient does not meet criteria for detox , but meets criteria for rehab. - Diagnostic (1) Opioid dependence, uncomplicated Current Visit: Yes Status: Acute (2) Cannabis dependence Current Visit: Yes Status: Acute (3) HTN (hypertension) Current Visit: Yes Status: Chronic Qualifiers: Hypertension type: essential hypertension Qualified Code(s): I10 - Essential (primary) hypertension (4) Nicotine dependence Current Visit: Yes Status: Chronic Qualifiers: Nicotine product type: cigarettes Substance use status: in withdrawal Qualified Code(s): F17.213 - Nicotine dependence, cigarettes, with withdrawal (5) Obesity Current Visit: Yes Status: Chronic Qualifiers: Obesity type: unspecified obesity type Obesity classification: adult class 1 (BMI 30 - 34.9) Serious obesity comorbidity presence: unspecified whether serious comorbidity present Body mass index: BMI 34.0-34.9 Qualified Code(s) : E66.9 - Obesity, unspecified; Z68.34 - Body mass index (BMI) 34.0-34.9, adult (6) Alcohol dependence Current Visit: Yes Status: Acute Cleared for Admission [facility] - Detox or Rehab Claeared for Rehab Admission: Yes Breathalyzer - Breathalyzer Breathalyzer: 0 Urine Drug Screen - Test Device Lot number: [id number] Expiration date: 09/03/20 - Control Is test valid?: Yes - Results Drug screen NEGATIVE: No Urine drug screen results: THC-Marijuana, RICKIE-Cocaine, FEN-Fentanyl, MOP-Opiates , MTD-Methadone, BZO-Benzodiazepines Inpatient Rehab Admission - Rehab Decision to Admit Inpatient rehab admission?: Yes - Initial Determination Are CD services needed?: Yes Free of communicable disease: Yes Not in need of hospitalization: Yes - Rehab Admission Criteria Previous failed treatment: Yes Poor recovery environment: Yes Comorbidities: Yes Lacks judgement: Yes Patient is meeting Inpatient Rehab admission criteria:: Yes
[2019-01-27] MEDS ORDERED: NICOTINE POLACRILEX 2 MG GUM BUC PRN (13:06)
[2019-01-27] MEDS ORDERED: P-EPHED 60MG/TRIPROLIDI 2.5MG TABLET PO PRN (13:06)
[2019-01-27] MEDS ORDERED: ACETAMINOPHEN 325 MG TABLET (FP) PO PRN (13:06)
[2019-01-27] MEDS ORDERED: guaiFENesin 200 MG/10 ML 10 ML UNIT-DOSE CUPS PO PRN (13:06)
[2019-01-27] MEDS ORDERED: IBUPROFEN 400 MG TABLET (FP) PO PRN (13:06)
[2019-01-27] MEDS ORDERED: MAG HYDROX/AL HYDROX/SIMETH 30 ML UNIT-DOSE CUP PO PRN (13:06)
[2019-01-27] MEDS ORDERED: MAGNESIUM HYDROX 2400MG/30ML ORAL SUSPENSION 30 ML CUP PO PRN (13:06)
[2019-01-27] MEDS ORDERED: LOPERAMIDE HCL 2 MG CAPSULE PO PRN (13:06)
[2019-01-27] MEDS ORDERED: MAGNESIUM CITRATE 300 ML BOTTLE PO PRN (13:06)
[2019-01-27] MEDS ORDERED: MENTHOL/PHENOL 1 EACH UD MM PRN (13:06)
[2019-01-27] MEDS ORDERED: hydrOXYzine PAMOATE 50 MG CAPSULE (FP) PO PRN (13:06)
[2019-01-27] MEDS ORDERED: ONDANSETRON *ODT* 4 MG TABLET SL PRN (13:09)
--- NOTE | 2019-01-27 14:25 | PN ---
S Progress Note Note: asymptomatic prolong QT on EKG 476/483 d/c vistaril and zofran repeat EKG in AM continue to monitor
[2019-01-27] MEDS: GABAPENTIN 100 MG CAPSULE (FP) PO SCH ×2 (14:39→21:41)
--- NOTE | 2019-01-27 15:09 | PN ---
[facility] Progress Note Note: COPY H&P Admission ROS [facility] - HPI Chief Complaint: "alcohol and heroin withdrawal sx " Allergies/Adverse Reactions: Allergies Allergy/AdvReac Type Severity Reaction Status Date / Time Fish Containing Products Allergy Severe Hives Verified 01/27/19 11:35 tomato Allergy Severe Hives Verified 01/27/19 11:35 No Known Drug Allergies Allergy Verified 01/27/19 11:35 History of Present Illness: 48 yo male with hx of alcohol, nicotine , THC and heroin (nasal) dependence is here seeking detox. Patient completed detox opioid and alcohol "couple weeks ago " at [facility]. PMHX: HTN. Denies any psychiatric hx. Denies suicidal / homicidal ideation or hx of suicide attempt. Denies hx of seizures, blackouts or overdose. Longest period of sobriety two years Exam Limitations: No Limitations - Ebola screening Have you traveled outside of the country in the last 21 days: No Have you had contact with anyone from an Ebola affected area: No Do you have a fever: No - Review of Systems Constitutional: Changes in sleep EENT: reports: No Symptoms Reported Respiratory: reports: No Symptoms reported Cardiac: reports: No Symptoms Reported GI: reports: Nausea, Other (loose stools) Musculoskeletal: reports: No Symptoms Reported Integumentary: reports: No Symptoms Reported Neuro: reports: No Symptoms reported Endocrine: reports: No Symptoms Reported Hematology: reports: No Symptoms Reported Psychiatric: reports: Orientated x3, Anxious Other Systems: Reviewed and Negative Patient History - Patient Medical History Hx Anemia: No Hx Asthma: No Hx Chronic Obstructive Pulmonary Disease (COPD): No Hx Cancer: No Hx Cardiac Disorders: No Hx Congestive Heart Failure: No Hx Hypertension: Yes (Norvasc 5mg / Lisinopril 10 mg ) Hx Hypercholesterolemia: No Hx Pacemaker: No HX Cerebrovascular Accident: No Hx Seizures: No Hx Dementia: No Hx Diabetes: No Hx Gastrointestinal Disorders: No Hx Liver Disease: No Hx Genitourinary Disorders: No Hx Sexually Transmitted Disorders: No Hx Renal Disease (ESRD): No Hx Thyroid Disease: No Hx Human Immunodeficiency Virus (HIV): No (03/20 LAST NEGATIVE) Hx Hepatitis C: No Hx Depression: No Hx Suicide Attempt: No Hx Bipolar Disorder: No Hx Schizophrenia: No - Patient Surgical History Past Surgical History: Yes Hx Neurologic Surgery: No Hx Cataract Extraction: No Hx Cardiac Surgery: No Hx Lung Surgery: No Hx Breast Surgery: No Hx Breast Biopsy: No Hx Abdominal Surgery: Yes Hx Appendectomy: No Hx Cholecystectomy: No Hx Genitourinary Surgery: No Hx Section: No Hx Orthopedic Surgery: No Other Surgical History: R inguinal hernia and umbillical hernia repair. Anesthesia Reaction: No - PPD History Date: 11/13/18 Results: 0 mm - Smoking Cessation Smoking history: Current every day smoker Have you smoked in the past 12 months: Yes Aproximately how many cigarettes per day: 10 Hx Chewing Tobacco Use: No Initiated information on smoking cessation: Yes 'Breaking Loose' booklet given: 01/27/19 - Substance & Tx. History Hx Alcohol Use: Yes Hx Substance Use: Yes Substance Use Type: Heroin, Marijuana Hx Substance Use Treatment: Yes (detox opioid and alcohol "couple weeks ago" at [facility].) - Substances abused Alcohol Substance route: Oral Frequency: Daily Amount used: 1 pt. liquor, 12 cans beers (16 oz) Age of first use: 21 Date of last use: 01/26/19 Heroin Substance route: Inhalation Frequency: Daily Amount used: 12 bags Age of first use: 37 Date of last use: 01/26/19 Marijuana/Hashish Substance route: Smoking Frequency: Daily Amount used: 5 blunts Age of first use: 19 Date of last use: 01/27/19 Family Disease History - Family Disease History Family Disease History: Diabetes: Mother Admission Physical Exam S - Vital Signs Vital Signs: Vital Signs - 24 hr 01/27/19 01/27/19 11:32 11:43 Temperature 98.1 F 98.1 F Pulse Rate 74 74 Respiratory 18 18 Rate Blood Pressure 131/77 131/77 - Physical General Appearance: Yes: Appropriately Dressed, Obese, Other (body ordor) HEENTM: Yes: EOMI, Hearing grossly Normal, Normal ENT Inspection, Normocephalic , Normal Voice, VICENTA, Pharynx Normal, Tm's normal Respiratory: Yes: Within Normal Limits Neck: Yes: Within Normal Limits Breast: Yes: Breast Exam Deferred Cardiology: Yes: Regular Rhythm, Regular Rate Abdominal: Yes: Normal Bowel Sounds, Non Tender, Soft, Protuberent Genitourinary: Yes: Within Normal Limits Back: Yes: Normal Inspection Musculoskeletal: Yes: full range of Motion, Gait Steady, Pelvis Stable Extremities: Yes: Normal Capillary Refill, Normal Inspection, Normal Range of Motion, Non-Tender Neurological: Yes: Within Normal Limits, associate school psychologist II-XII NML intact, Fully Oriented, Alert, Motor Strength 5/5, Depressed Affect Integumentary: Yes: Normal Color, Dry, Warm Lymphatic: Yes: Within Normal Limits - Addiitonal Findings: Base on patient physical presentation, patient does not meet criteria for detox , but meets criteria for rehab. - Diagnostic (1) Opioid dependence, uncomplicated Current Visit: Yes Status: Acute (2) Cannabis dependence Current Visit: Yes Status: Acute (3) HTN (hypertension) Current Visit: Yes Status: Chronic Qualifiers: Hypertension type: essential hypertension Qualified Code(s): I10 - Essential (primary) hypertension (4) Nicotine dependence Current Visit: Yes Status: Chronic Qualifiers: Nicotine product type: cigarettes Substance use status: in withdrawal Qualified Code(s): F17.213 - Nicotine dependence, cigarettes, with withdrawal (5) Obesity Current Visit: Yes Status: Chronic Qualifiers: Obesity type: unspecified obesity type Obesity classification: adult class 1 (BMI 30 - 34.9) Serious obesity comorbidity presence: unspecified whether serious comorbidity present Body mass index: BMI 34.0-34.9 Qualified Code(s) : E66.9 - Obesity, unspecified; Z68.34 - Body mass index (BMI) 34.0-34.9, adult (6) Alcohol dependence Current Visit: Yes Status: Acute Cleared for Admission [facility] - Detox or Rehab Claeared for Rehab Admission: Yes Breathalyzer - Breathalyzer Breathalyzer: 0 Urine Drug Screen - Test Device Lot number: [id number] Expiration date: 09/03/20 - Control Is test valid?: Yes - Results Drug screen NEGATIVE: No Urine drug screen results: THC-Marijuana, RICKIE-Cocaine, FEN-Fentanyl, MOP-Opiates , MTD-Methadone, BZO-Benzodiazepines Inpatient Rehab Admission - Rehab Decision to Admit Inpatient rehab admission?: Yes - Initial Determination Are CD services needed?: Yes Free of communicable disease: Yes Not in need of hospitalization: Yes - Rehab Admission Criteria Previous failed treatment: Yes Poor recovery environment: Yes Comorbidities: Yes Lacks judgement: Yes Patient is meeting Inpatient Rehab admission criteria:: Yes
[2019-01-27 16:54] LABS: HEMATOCRIT 46.1 % (35.4-49); MCH 29.3 pg (25.7-33.7); MCHC 32.6 g/dl (32.0-35.9); MEAN PLT VOLUME 10.4 fl (7.5-11.1); PLATELET COUNT 195 K/MM3 (134-434); RBC 5.12 M/mm3 (4.00-5.60); RDW 14.6 % (11.9-15.9); WHITE BLOOD COUNT 8.1 K/mm3 (4.0-10.0)
[2019-01-27 17:03] LABS: ALBUMIN 4.2 g/dl (3.4-5.0); ALK PHOS 62 U/L (45-117); ANION GAP 6 MMOL/L (8-16); BILIRUBIN,TOTAL 0.6 mg/dL (0.2-1); BLOOD UREA NITROGEN 14 mg/dL (7-18); CALCIUM 9.6 mg/dL (8.5-10.1); CHLORIDE 104 mmol/L (98-107); CO2 29 mmol/L (21-32); CREATININE 1.2 mg/dL (0.55-1.3); GLUCOSE,RANDOM 99 mg/dL (74-106); SGOT/AST 14 U/L (15-37); SGPT/ALT 21 U/L (13-61); SODIUM 138 mmol/L (136-145); TOT PROT 7.7 g/dl (6.4-8.2)
[2019-01-27 17:13] LABS: PH,URINE 5.5 (5.0-8.0); URINE APPEARANCE CLEAR; URINE BILIRUBIN NEGATIVE (NEGATIVE); URINE COLOR YELLOW; URINE GLUCOSE (UA) NEGATIVE (NEGATIVE); URINE KETONE NEGATIVE (NEGATIVE); URINE LEUK ESTERASE NEGATIVE (NEGATIVE); URINE NITRITE NEGATIVE (NEGATIVE); URINE PROTEIN NEGATIVE (NEGATIVE); URINE UROBILINOGEN 0.2 mg/dL (0.2-1.0)
[2019-01-27] MEDS: THIAMINE HCL 100 MG TABLET (FP) PO SCH (21:41)
[2019-01-27] MEDS ORDERED: MELATONIN 5 MG TABLETS PO PRN (22:00)
[2019-01-28] MEDS: GABAPENTIN 100 MG CAPSULE (FP) PO SCH ×3 (06:36→23:28)
[2019-01-28] MEDS: PRENATAL VITAMINS W/ FOLIC ACID TABLET (FP) PO SCH (09:47)
[2019-01-28] MEDS: LISINOPRIL 10 MG TABLET (FP) PO SCH (09:47)
[2019-01-28] MEDS: NICOTINE 14 MG/24 HOURS TOPICAL PATCH TD SCH (09:47)
[2019-01-28] MEDS: amLODIPine BESYLATE 10 MG TABLET (FP) PO SCH (09:47)
--- NOTE | 2019-01-28 11:30 | EKG ---
Test Reason : Blood Pressure : / mmHG Vent. Rate : 062 BPM Atrial Rate : 062 BPM P-R Int : 176 ms QRS Dur : 116 ms QT Int : 476 ms P-R-T Axes : 063 055 022 degrees QTc Int : 483 ms NORMAL SINUS RHYTHM WITH SINUS ARRHYTHMIA PROLONGED QT ABNORMAL ECG WHEN COMPARED WITH ECG OF 11-NOV-2018 10:39, VENT. RATE HAS DECREASED BY 30 BPM Confirmed by JOSEMANUEL CAVAZOS MD ([id number]) on 01/28/2019 11:30:28 AM Referred By: Confirmed By:JOSEMANUEL CAVAZOS MD
[2019-01-28] MEDS ORDERED: CYCLOBENZAPRINE HCL 10 MG TABLET (FP) PO PRN (11:47)
[2019-01-28] MEDS ORDERED: ONDANSETRON *ODT* 4 MG TABLET SL PRN (12:00)
[2019-01-28] MEDS ORDERED: cloNIDine HCL 0.1 MG TABLET PO PRN (12:02)
--- NOTE | 2019-01-28 12:09 | PN ---
[facility] Progress Note Note: PT WAS ADMITTED YESTERDAY FROM [facility] TO REHAB(SEE H/P) NOW C/O WITHDRAWAL SX OF NAUSEA, BACK PAIN HOT AND COLD SWEATS AND IRRITABILITY. ALERT O X 3. OOB AMBULATING WITH STEADY GAIT. Vital Signs 01/28/19 06:42 Temperature 97.9 F Pulse Rate 77 Respiratory 18 Rate Blood Pressure 146/94 Laboratory Tests 01/27/19 01/27/19 01/27/19 13:10 13:10 13:10 WBC 8.1 RBC 5.12 Hgb 15.0 Hct 46.1 MCV 90.0 MCH 29.3 MCHC 32.6 RDW 14.6 Plt Count 195 D MPV 10.4 Sodium 138 Potassium 5.0 Chloride 104 Carbon Dioxide 29 Anion Gap 6 L BUN 14 Creatinine 1.2 Creat Clearance w eGFR 65.18 Random Glucose 99 Calcium 9.6 Total Bilirubin 0.6 AST 14 L ALT 21 Alkaline Phosphatase 62 Total Protein 7.7 Albumin 4.2 Urine Color Urine Appearance Urine pH Ur Specific Corn Urine Protein Urine Glucose (UA) Urine Ketones Urine Blood Urine Nitrite Urine Bilirubin Urine Urobilinogen Ur Leukocyte Esterase HIV 1&2 Antibody Screen Negative HIV P24 Antigen Negative 01/27/19 14:59 WBC RBC Hgb Hct MCV MCH MCHC RDW Plt Count MPV Sodium Potassium Chloride Carbon Dioxide Anion Gap BUN Creatinine Creat Clearance w eGFR Random Glucose Calcium Total Bilirubin AST ALT Alkaline Phosphatase Total Protein Albumin Urine Color Yellow Urine Appearance Clear Urine pH 5.5 Ur Specific Corn 1.016 Urine Protein Negative Urine Glucose (UA) Negative Urine Ketones Negative Urine Blood Negative Urine Nitrite Negative Urine Bilirubin Negative Urine Urobilinogen 0.2 Ur Leukocyte Esterase Negative HIV 1&2 Antibody Screen HIV P24 Antigen W/SX PLAN:CLONIDINE 0.1 MG PO BID PRN FOR W/SX FLEXERIL 10 MG PO TID FOR MUSCLE ACHES/SPASMS MOTRIN PRN DIRECTED INCREASE PO FLUIDS
[2019-01-28] MEDS: CYCLOBENZAPRINE HCL 10 MG TABLET (FP) PO SCH ×2 (14:00→23:28)
[2019-01-28] MEDS: THIAMINE HCL 100 MG TABLET (FP) PO SCH (23:28)
[2019-01-29] MEDS: GABAPENTIN 100 MG CAPSULE (FP) PO SCH ×2 (06:15→14:37)
[2019-01-29] MEDS: CYCLOBENZAPRINE HCL 10 MG TABLET (FP) PO SCH ×2 (06:16→14:37)
[2019-01-29 06:25] VITALS: TEMP 98.1
[2019-01-29] MEDS: PRENATAL VITAMINS W/ FOLIC ACID TABLET (FP) PO SCH (09:46)
[2019-01-29] MEDS: LISINOPRIL 10 MG TABLET (FP) PO SCH (09:46)
[2019-01-29] MEDS: NICOTINE 14 MG/24 HOURS TOPICAL PATCH TD SCH (09:46)
[2019-01-29] MEDS: amLODIPine BESYLATE 10 MG TABLET (FP) PO SCH (09:46)
[2019-01-29 11:13] VITALS: BP 151/88; PULSE 101
--- NOTE | 2019-01-29 15:20 | EKG ---
Test Reason : Blood Pressure : / mmHG Vent. Rate : 073 BPM Atrial Rate : 073 BPM P-R Int : 160 ms QRS Dur : 106 ms QT Int : 436 ms P-R-T Axes : 056 059 020 degrees QTc Int : 480 ms NORMAL SINUS RHYTHM NONSPECIFIC T WAVE ABNORMALITY PROLONGED QT ABNORMAL ECG WHEN COMPARED WITH ECG OF 27-JAN-2019 12:43, NO SIGNIFICANT CHANGE WAS FOUND Confirmed by TATUM ROBLES MD ([id number]) on 01/29/2019 3:20:27 PM Referred By: GAL GALINDO Confirmed By:TATUM ROBLES MD
--- NOTE | 2019-01-29 17:47 | PN ---
[facility] Progress Note Note: patient does not want to continue treatment,the risk of relapsing is high, explained to patient,patient understood,all attempts to convince patient to stay with no avail,patient signed release against medical advice,advise to go to nearest emergency room if any emergency problem patient will go to out patient program for follow up Vital Signs Temperature 98.1 F 01/29/19 06:25 Pulse Rate 101 H 01/29/19 10:00 Respiratory Rate 18 01/29/19 06:25 Blood Pressure 151/88 01/29/19 10:00 O2 Sat by Pulse Oximetry (%) stable for discharge has his medication with him left the unit in good and stable condition
--- NOTE | 2019-01-29 17:53 | PN ---
[facility] Progress Note Note: discharge summary note for rehab date of admission 01/27/19 date of discharge 01/29/19 diagnosis opioid dependence cannabis dependence essential hypertension nicotine dependence Vital Signs Temperature 98.1 F 01/29/19 06:25 Pulse Rate 101 H 01/29/19 10:00 Respiratory Rate 18 01/29/19 06:25 Blood Pressure 151/88 01/29/19 10:00 O2 Sat by Pulse Oximetry (%) Laboratory Last Values WBC 8.1 K/mm3 (4.0-10.0) 01/27/19 13:10 RBC 5.12 M/mm3 (4.00-5.60) 01/27/19 13:10 Hgb 15.0 GM/dL (11.7-16.9) 01/27/19 13:10 Hct 46.1 % (35.4-49) 01/27/19 13:10 MCV 90.0 fl (80-96) 01/27/19 13:10 MCH 29.3 pg (25.7-33.7) 01/27/19 13:10 MCHC 32.6 g/dl (32.0-35.9) 01/27/19 13:10 RDW 14.6 % (11.9-15.9) 01/27/19 13:10 Plt Count 195 K/MM3 (134-434) D 01/27/19 13:10 MPV 10.4 fl (7.5-11.1) 01/27/19 13:10 Sodium 138 mmol/L (136-145) 01/27/19 13:10 Potassium 5.0 mmol/L (3.5-5.1) 01/27/19 13:10 Chloride 104 mmol/L (98-107) 01/27/19 13:10 Carbon Dioxide 29 mmol/L (21-32) 01/27/19 13:10 Anion Gap 6 MMOL/L (8-16) L 01/27/19 13:10 BUN 14 mg/dL (7-18) 01/27/19 13:10 Creatinine 1.2 mg/dL (0.55-1.3) 01/27/19 13:10 Creat Clearance w eGFR 65.18 (>60) 01/27/19 13:10 Random Glucose 99 mg/dL (74-106) 01/27/19 13:10 Calcium 9.6 mg/dL (8.5-10.1) 01/27/19 13:10 Total Bilirubin 0.6 mg/dL (0.2-1) 01/27/19 13:10 AST 14 U/L (15-37) L 01/27/19 13:10 ALT 21 U/L (13-61) 01/27/19 13:10 Alkaline Phosphatase 62 U/L (45-117) 01/27/19 13:10 Total Protein 7.7 g/dl (6.4-8.2) 01/27/19 13:10 Albumin 4.2 g/dl (3.4-5.0) 01/27/19 13:10 Urine Color Yellow 01/27/19 14:59 Urine Appearance Clear 01/27/19 14:59 Urine pH 5.5 (5.0-8.0) 01/27/19 14:59 Ur Specific Plain 1.016 (1.010-1.035) 01/27/19 14:59 Urine Protein Negative (NEGATIVE) 01/27/19 14:59 Urine Glucose (UA) Negative (NEGATIVE) 01/27/19 14:59 Urine Ketones Negative (NEGATIVE) 01/27/19 14:59 Urine Blood Negative (NEGATIVE) 01/27/19 14:59 Urine Nitrite Negative (NEGATIVE) 01/27/19 14:59 Urine Bilirubin Negative (NEGATIVE) 01/27/19 14:59 Urine Urobilinogen 0.2 mg/dL (0.2-1.0) 01/27/19 14:59 Ur Leukocyte Esterase Negative (NEGATIVE) 01/27/19 14:59 HIV 1&2 Antibody Screen Negative 01/27/19 13:10 HIV P24 Antigen Negative 01/27/19 13:10 patient signed release against medical advice
== END 2019-01-29 18:08 | disposition left against medical advice (07) | DRG 770 ==
LOC: YASAS 10:52 → Y5N 13:29 → UNDODISIN 19:13
PROVIDERS: ADMIT Neuromusculoskeletal Medicine & OMM; ATTEND Neuromusculoskeletal Medicine & OMM
PROC: HZ42ZZZ Group Counseling for Substance Abuse Treatment, Cognitive-Behavioral (ICD-10-PCS; principal; 2019-01-27)
DX: F11.20 Opioid dependence, uncomplicated (principal); F10.20 Alcohol dependence, uncomplicated; F12.20 Cannabis dependence, uncomplicated; F17.210 Nicotine dependence, cigarettes, uncomplicated; I10 Essential (primary) hypertension; E66.9 Obesity, unspecified; Z68.33 Body mass index [BMI] 33.0-33.9, adult; Z91.018 Allergy to other foods; Z91.013 Allergy to seafood
CPT/HCPCS: 36415; 80053; 81003; 85027; 87389; 93005; 93010; J0735

== ENCOUNTER 2023-06-02 19:08 | Inpatient (IN) | payer OTHER ==
[2023-06-02 19:39] VITALS: BMI 28.7
[2023-06-02] MEDS ORDERED: guaiFENesin 600 MG TABLET.ER (FP) PO PRN (20:41)
[2023-06-02] MEDS ORDERED: MAG HYDROX/AL HYDROX/SIMETH 30 ML UNIT-DOSE CUP PO PRN (20:41)
[2023-06-02] MEDS ORDERED: DICYCLOMINE HCL 10 MG CAPSULE PO PRN (20:41)
[2023-06-02] MEDS ORDERED: hydrOXYzine PAMOATE 25 MG CAPSULE (FP) PO PRN (20:41)
[2023-06-02] MEDS ORDERED: ACETAMINOPHEN 325 MG TABLET (FP) PO PRN (20:41)
[2023-06-02] MEDS ORDERED: BISMUTH SUBSALICYLATE 524 MG/30 ML PO PRN (20:41)
[2023-06-02] MEDS ORDERED: IBUPROFEN 400 MG TABLET (FP) PO PRN (20:41)
[2023-06-02] MEDS ORDERED: BENZOCAINE/MENTHOL (CHLORASEPTIC ) LOZENGE MM PRN (20:41)
[2023-06-02] MEDS ORDERED: POLYETHYLENE GLYCOL (HEALTHYLAX) 3350 17 GM PACKET PO PRN (20:41)
[2023-06-02] MEDS ORDERED: NALOXONE HCL 0.4 MG/ML VIAL IM PRN (20:41)
[2023-06-02] MEDS ORDERED: BENZONATATE 200 MG CAPSULE PO PRN (20:41)
[2023-06-02] MEDS ORDERED: ONDANSETRON *ODT* 4 MG TABLET SL PRN (20:41)
[2023-06-02] MEDS ORDERED: MAGNESIUM HYDROX 2400MG/30ML ORAL SUSPENSION 30 ML CUP PO PRN (20:41)
[2023-06-02] MEDS ORDERED: IBUPROFEN 600 MG TABLET (FP) PO PRN (20:41)
[2023-06-02] MEDS ORDERED: NALOXONE HCL (KLOXXADO) 8 MG SPRAY NS PRN (20:41)
[2023-06-02] MEDS ORDERED: METHOCARBAMOL 500 MG TABLET PO PRN (20:41)
[2023-06-02] MEDS ORDERED: LOPERAMIDE HCL 2 MG CAPSULE PO PRN (20:41)
[2023-06-02] MEDS ORDERED: MELATONIN 5 MG TABLETS PO SCH (22:00)
[2023-06-02] MEDS ORDERED: THIAMINE HCL 100 MG TABLET (FP) PO SCH (22:00)
[2023-06-03] MEDS ORDERED: amLODIPine BESYLATE 10 MG TABLET (FP) PO SCH (10:00)
[2023-06-03] MEDS ORDERED: LISINOPRIL 10 MG TABLET PO SCH (10:00)
[2023-06-03] MEDS ORDERED: PRENATAL VITAMINS W/ FOLIC ACID TABLET (FP) PO SCH (10:00)
[2023-06-03 10:01] VITALS: RESP 16
[2023-06-03] MEDS ORDERED: cloNIDine HCL 0.1 MG TABLET PO PRN (10:10)
[2023-06-03] MEDS ORDERED: methaDONE HCL 10 MG TABLET (FOR DETOX USE ONLY) PO ONE (10:10)
[2023-06-03] MEDS ORDERED: diazePAM 5 MG TABLET PO PRN ×2 (10:11→10:43)
[2023-06-03 10:12] LABS: POTASSIUM 4.2 mmol/L (3.5-5.1)
[2023-06-03 10:15] LABS: HEMATOCRIT 39.4 % (35.4-49); MCH 28.4 pg (25.7-33.7); MCHC 33.1 g/dl (32.0-35.9); MEAN PLT VOLUME 10.3 fl (7.5-11.1); PLATELET COUNT 197 10^3/uL (134-434); RBC 4.58 M/mm3 (4.00-5.60); RDW 14.3 % (11.9-15.9); WHITE BLOOD COUNT 6.6 K/mm3 (4.0-10.0)
[2023-06-03 10:21] LABS: ALBUMIN 3.1 g/dl (3.4-5.0); BLOOD UREA NITROGEN 17.2 mg/dL (7-18); CALCIUM 8.6 mg/dL (8.5-10.1)
[2023-06-03 10:24] LABS: CREATININE 1.1 mg/dL (0.55-1.3)
[2023-06-03 10:26] LABS: BILIRUBIN,TOTAL 0.4 mg/dL (0.2-1); TOT PROT 5.9 g/dl (6.4-8.2)
[2023-06-03] MEDS ORDERED: diazePAM 5 MG TABLET PO SCH (11:00)
[2023-06-03 13:10] VITALS: BP 151/99; PULSE 61; TEMP 98.7
[2023-06-05] MEDS ORDERED: diazePAM 5 MG TABLET PO SCH (06:00)
[2023-06-05] MEDS ORDERED: methaDONE HCL 10 MG TABLET (FOR DETOX USE ONLY) PO ONE (10:00)
[2023-06-06] MEDS ORDERED: diazePAM 5 MG TABLET PO SCH (06:00)
[2023-06-07] MEDS ORDERED: diazePAM 5 MG TABLET PO ONE (06:00)
[2023-06-07] MEDS ORDERED: methaDONE HCL 10 MG TABLET (FOR DETOX USE ONLY) PO ONE (10:00)
== END 2023-06-03 13:05 | disposition left against medical advice (07) | DRG 770 ==
LOC: YASAS 19:08 → UNDOADMIN 22:06 → Y3N 22:06 → UNDODISIN 06-03 13:05
PROVIDERS: ADMIT Allergy & Immunology; ATTEND Allergy & Immunology
PROC: HZ2ZZZZ Detoxification Services for Substance Abuse Treatment (ICD-10-PCS; principal; 2023-06-02)
DX: F11.23 Opioid dependence with withdrawal (principal); F10.230 Alcohol dependence with withdrawal, uncomplicated; F17.210 Nicotine dependence, cigarettes, uncomplicated; I10 Essential (primary) hypertension; R94.31 Abnormal electrocardiogram [ECG] [EKG]
CPT/HCPCS: 36415; 80053; 85027; 86780; 87635; 93005; 93010

== ENCOUNTER 2023-09-16 09:46 | Inpatient (IN) | payer OTHER ==
[2023-09-16 10:13] VITALS: BMI 27.2
[2023-09-16] MEDS ORDERED: guaiFENesin 600 MG TABLET.ER (FP) PO PRN (10:55)
[2023-09-16] MEDS ORDERED: IBUPROFEN 600 MG TABLET (FP) PO PRN (10:55)
[2023-09-16] MEDS ORDERED: BENZOCAINE/MENTHOL (CHLORASEPTIC ) LOZENGE MM PRN (10:55)
[2023-09-16] MEDS ORDERED: ONDANSETRON *ODT* 4 MG TABLET SL PRN (10:55)
[2023-09-16] MEDS ORDERED: MAGNESIUM HYDROX 2400MG/30ML ORAL SUSPENSION 30 ML CUP PO PRN (10:55)
[2023-09-16] MEDS ORDERED: ACETAMINOPHEN 325 MG TABLET (FP) PO PRN (10:55)
[2023-09-16] MEDS ORDERED: NICOTINE POLACRILEX 2 MG GUM BUC PRN (10:55)
[2023-09-16] MEDS ORDERED: IBUPROFEN 400 MG TABLET (FP) PO PRN (10:55)
[2023-09-16] MEDS ORDERED: hydrOXYzine PAMOATE 25 MG CAPSULE (FP) PO PRN (10:55)
[2023-09-16] MEDS ORDERED: MAG HYDROX/AL HYDROX/SIMETH 30 ML UNIT-DOSE CUP PO PRN (10:55)
[2023-09-16] MEDS ORDERED: BENZONATATE 200 MG CAPSULE PO PRN (10:55)
[2023-09-16] MEDS ORDERED: POLYETHYLENE GLYCOL (HEALTHYLAX) 3350 17 GM PACKET PO PRN (10:55)
[2023-09-16] MEDS ORDERED: BISMUTH SUBSALICYLATE 262 MG/15 ML BTL PO PRN (10:55)
[2023-09-16] MEDS ORDERED: NALOXONE HCL (KLOXXADO) 8 MG SPRAY NS PRN (10:55)
[2023-09-16] MEDS ORDERED: NALOXONE HCL 0.4 MG/ML VIAL IM PRN (10:55)
[2023-09-16] MEDS ORDERED: LOPERAMIDE HCL 2 MG CAPSULE PO PRN (10:55)
[2023-09-16] MEDS ORDERED: DICYCLOMINE HCL 10 MG CAPSULE PO PRN (10:55)
[2023-09-16] MEDS ORDERED: METHOCARBAMOL 500 MG TABLET PO PRN (10:55)
[2023-09-16] MEDS ORDERED: methaDONE HCL 40 MG DISPERSABLE TABLET PO SCH (11:45)
[2023-09-16] MEDS: LISINOPRIL 10 MG TABLET PO SCH (12:43)
[2023-09-16] MEDS: methaDONE 40 MG, methaDONE 20 MG PO SCH (12:43)
[2023-09-16] MEDS ORDERED: THIAMINE HCL 100 MG TABLET (FP) PO SCH (22:00)
[2023-09-16] MEDS ORDERED: MELATONIN 5 MG TABLETS PO SCH (22:00)
[2023-09-17] MEDS: methaDONE 40 MG, methaDONE 20 MG PO SCH (05:58)
[2023-09-17] MEDS ORDERED: PRENATAL VITAMINS W/ FOLIC ACID TABLET (FP) PO SCH (10:00)
[2023-09-17] MEDS ORDERED: NICOTINE 14 MG/24 HOURS TOPICAL PATCH TD SCH (10:00)
[2023-09-17] MEDS: LISINOPRIL 10 MG TABLET PO SCH (10:16)
[2023-09-17] MEDS ORDERED: diazePAM 5 MG TABLET PO PRN (10:36)
[2023-09-17] MEDS ORDERED: diazePAM 5 MG TABLET PO SCH (11:00)
[2023-09-17 11:22] LABS: HEMATOCRIT 39.4 % (35.4-49); HEMOGLOBIN 12.9 GM/dL (11.7-16.9); MCH 28.6 pg (25.7-33.7); MCHC 32.7 g/dl (32.0-35.9); MEAN CELL VOLUME 87.6 fl (80-96); MEAN PLT VOLUME 10.1 fl (7.5-11.1); PLATELET COUNT 220 10^3/uL (134-434); RDW 14.5 % (11.9-15.9); WHITE BLOOD COUNT 8.9 K/mm3 (4.0-10.0)
[2023-09-17] MEDS ORDERED: amLODIPine BESYLATE 10 MG TABLET (FP) PO SCH (12:00)
[2023-09-17 12:04] LABS: POTASSIUM 4.3 mmol/L (3.5-5.1)
[2023-09-17 12:09] LABS: ALBUMIN 3.9 g/dl (3.4-5.0); BLOOD UREA NITROGEN 24.2 mg/dL (7-18)
[2023-09-17 12:12] LABS: CREATININE 1.2 mg/dL (0.55-1.3)
[2023-09-17 12:13] LABS: BILIRUBIN,TOTAL 0.4 mg/dL (0.2-1)
[2023-09-17 16:58] VITALS: BP 134/82; PULSE 74; RESP 20; TEMP 97.7
[2023-09-19] MEDS ORDERED: diazePAM 5 MG TABLET PO SCH (06:00)
[2023-09-20] MEDS ORDERED: diazePAM 5 MG TABLET PO SCH (06:00)
[2023-09-21] MEDS ORDERED: diazePAM 5 MG TABLET PO ONE (06:00)
== END 2023-09-17 16:54 | disposition left against medical advice (07) | DRG 770 ==
LOC: YASAS 09:46 → Y3N 11:39
PROVIDERS: ADMIT Allergy & Immunology; ATTEND Surgery
PROC: HZ2ZZZZ Detoxification Services for Substance Abuse Treatment (ICD-10-PCS; principal; 2023-09-16)
DX: F11.23 Opioid dependence with withdrawal (principal); F10.230 Alcohol dependence with withdrawal, uncomplicated; F14.20 Cocaine dependence, uncomplicated; F17.210 Nicotine dependence, cigarettes, uncomplicated; I10 Essential (primary) hypertension
CPT/HCPCS: 36415; 80053; 80307; 85027; 86780; 87635; 87811; 93005; 93010

== ENCOUNTER 2023-12-21 18:29 | Inpatient (IN) | payer OTHER ==
[2023-12-21 21:40] VITALS: BMI 29.4
[2023-12-21] MEDS ORDERED: BENZONATATE 200 MG CAPSULE PO PRN (23:07)
[2023-12-21] MEDS ORDERED: BENZOCAINE/MENTHOL (CHLORASEPTIC ) LOZENGE MM PRN (23:07)
[2023-12-21] MEDS ORDERED: MAGNESIUM HYDROX 2400MG/30ML ORAL SUSPENSION 30 ML CUP PO PRN (23:07)
[2023-12-21] MEDS ORDERED: NALOXONE HCL (KLOXXADO) 8 MG SPRAY NS PRN (23:07)
[2023-12-21] MEDS ORDERED: guaiFENesin 600 MG TABLET.ER (FP) PO PRN (23:07)
[2023-12-21] MEDS ORDERED: ACETAMINOPHEN 325 MG TABLET (FP) PO PRN (23:07)
[2023-12-21] MEDS ORDERED: NICOTINE POLACRILEX 2 MG GUM BUC PRN (23:07)
[2023-12-21] MEDS ORDERED: NALOXONE HCL 0.4 MG/ML VIAL IM PRN (23:07)
[2023-12-21] MEDS ORDERED: IBUPROFEN 400 MG TABLET (FP) PO PRN (23:07)
[2023-12-21] MEDS ORDERED: IBUPROFEN 600 MG TABLET (FP) PO PRN (23:07)
[2023-12-21] MEDS ORDERED: LOPERAMIDE HCL 2 MG CAPSULE PO PRN (23:07)
[2023-12-21] MEDS ORDERED: hydrOXYzine PAMOATE 25 MG CAPSULE (FP) PO PRN (23:07)
[2023-12-21] MEDS ORDERED: POLYETHYLENE GLYCOL (HEALTHYLAX) 3350 17 GM PACKET PO PRN (23:07)
[2023-12-21] MEDS ORDERED: MAG HYDROX/AL HYDROX/SIMETH 30 ML UNIT-DOSE CUP PO PRN (23:07)
[2023-12-22] MEDS: MELATONIN 5 MG TABLETS PO SCH (01:51)
[2023-12-22] MEDS ORDERED: methaDONE HCL 10 MG TABLET PO SCH (09:15)
[2023-12-22] MEDS: methaDONE 40 MG, methaDONE 20 MG PO SCH (09:37)
[2023-12-22] MEDS: PRENATAL VITAMINS W/ FOLIC ACID TABLET (FP) PO SCH (09:38)
[2023-12-22] MEDS: NICOTINE 14 MG/24 HOURS TOPICAL PATCH TD SCH (09:39)
[2023-12-22 09:44] VITALS: TEMP 97.8
[2023-12-22 13:02] LABS: HEMATOCRIT 39.5 % (35.4-49); HEMOGLOBIN 13.3 GM/dL (11.7-16.9); MCH 29.4 pg (25.7-33.7); MCHC 33.6 g/dl (32.0-35.9); MEAN CELL VOLUME 87.3 fl (80-96); MEAN PLT VOLUME 10.5 fl (7.5-11.1); PLATELET COUNT 166 10^3/uL (134-434); RBC 4.53 M/mm3 (4.00-5.60); RDW 13.9 % (11.9-15.9); WHITE BLOOD COUNT 7.2 K/mm3 (4.0-10.0)
[2023-12-22 13:08] LABS: CHLORIDE 105 mmol/L (98-107); POTASSIUM 4.5 mmol/L (3.5-5.1); SODIUM 140 mmol/L (136-145)
[2023-12-22 13:20] VITALS: BP 124/68; PULSE 51; RESP 18
[2023-12-22 13:24] LABS: ANION GAP 3 mmol/L (4-13); CALCIUM 8.6 mg/dL (8.5-10.1); CO2 32 mmol/L (21-32); GLUCOSE,RANDOM 81 mg/dL (74-106)
[2023-12-22 13:25] LABS: ALBUMIN 3.4 g/dl (3.4-5.0)
[2023-12-22 13:27] LABS: CREATININE 1.6 mg/dL (0.55-1.3); SGOT/AST 9 U/L (15-37); SGPT/ALT 15 U/L (13-61)
[2023-12-22 13:29] LABS: BILIRUBIN,TOTAL 0.3 mg/dL (0.2-1); TOT PROT 6.1 g/dl (6.4-8.2)
[2023-12-22 13:30] LABS: ALK PHOS 57 U/L (45-117)
[2023-12-22 15:02] LABS: PH,URINE 5.5 (5.0-8.0); URINE APPEARANCE CLEAR; URINE BILIRUBIN NEGATIVE (NEGATIVE); URINE COLOR YELLOW; URINE GLUCOSE (UA) NEGATIVE (NEGATIVE); URINE KETONE NEGATIVE (NEGATIVE); URINE LEUK ESTERASE NEGATIVE (NEGATIVE); URINE NITRITE NEGATIVE (NEGATIVE); URINE PROTEIN NEGATIVE (NEGATIVE); URINE UROBILINOGEN 0.2 mg/dL (0.2-1.0)
[2023-12-22] MEDS ORDERED: P-EPHED 60MG/TRIPROLIDI 2.5MG TABLET PO PRN (15:26)
[2023-12-22] MEDS ORDERED: THIAMINE HCL 100 MG TABLET (FP) PO SCH (22:00)
== END 2023-12-22 17:05 | disposition home or self-care (01) | DRG 772 ==
LOC: YASAS 18:29 → Y3NR 12-22 02:04
PROVIDERS: ADMIT Allergy & Immunology; ATTEND Surgery
PROC: HZ42ZZZ Group Counseling for Substance Abuse Treatment, Cognitive-Behavioral (ICD-10-PCS; principal; 2023-12-22)
DX: F10.20 Alcohol dependence, uncomplicated (principal); F11.20 Opioid dependence, uncomplicated; F14.20 Cocaine dependence, uncomplicated; F12.20 Cannabis dependence, uncomplicated; F17.210 Nicotine dependence, cigarettes, uncomplicated; I10 Essential (primary) hypertension; R94.31 Abnormal electrocardiogram [ECG] [EKG]
CPT/HCPCS: 36415; 80053; 80305; 80307; 81003; 85027; 86780; 87635

== ENCOUNTER 2024-04-23 14:39 | Inpatient (IN) | payer OTHER ==
[2024-04-23 15:26] VITALS: BMI 28.7
[2024-04-23] MEDS ORDERED: LOPERAMIDE HCL 2 MG CAPSULE PO PRN (15:32)
[2024-04-23] MEDS ORDERED: NICOTINE POLACRILEX 2 MG GUM BUC PRN (15:32)
[2024-04-23] MEDS ORDERED: NALOXONE HCL 0.4 MG/ML VIAL IM PRN (15:32)
[2024-04-23] MEDS ORDERED: NICOTINE POLACRILEX 2 MG LOZENGE BC PRN (15:32)
[2024-04-23] MEDS ORDERED: MAGNESIUM HYDROX 2400MG/30ML ORAL SUSPENSION 30 ML CUP PO PRN (15:32)
[2024-04-23] MEDS ORDERED: MAG HYDROX/AL HYDROX/SIMETH 30 ML UNIT-DOSE CUP PO PRN (15:32)
[2024-04-23] MEDS ORDERED: BENZOCAINE/MENTHOL (CHLORASEPTIC ) LOZENGE MM PRN (15:32)
[2024-04-23] MEDS ORDERED: IBUPROFEN 400 MG TABLET (FP) PO PRN (15:32)
[2024-04-23] MEDS ORDERED: ACETAMINOPHEN 325 MG TABLET (FP) PO PRN (15:32)
[2024-04-23] MEDS ORDERED: POLYETHYLENE GLYCOL (HEALTHYLAX) 3350 17 GM PACKET PO PRN (15:32)
[2024-04-23] MEDS ORDERED: BENZONATATE 200 MG CAPSULE PO PRN (15:32)
[2024-04-23] MEDS ORDERED: BISMUTH SUBSALICYLATE 524 MG/30 ML PO PRN (15:32)
[2024-04-23] MEDS ORDERED: P-EPHED 60MG/TRIPROLIDI 2.5MG TABLET PO PRN (15:32)
[2024-04-23] MEDS ORDERED: ONDANSETRON *ODT* 4 MG TABLET SL PRN (15:32)
[2024-04-23] MEDS ORDERED: DICYCLOMINE HCL 10 MG CAPSULE PO PRN (15:32)
[2024-04-23] MEDS ORDERED: NALOXONE (NARCAN) HCL 4 MG/0.1 ML SPRAY NS PRN (15:32)
[2024-04-23] MEDS ORDERED: guaiFENesin 600 MG TABLET.ER (FP) PO PRN (15:32)
[2024-04-23] MEDS: THIAMINE 100 MG TABLET PO SCH (22:26)
[2024-04-23] MEDS: METHOCARBAMOL 500 MG TABLET PO PRN (22:26)
[2024-04-23] MEDS: MELATONIN 5 MG TABLETS PO SCH (22:27)
[2024-04-24] MEDS: LISINOPRIL 10 MG TABLET PO SCH (09:35)
[2024-04-24] MEDS: PRENATAL VITAMINS W/ FOLIC ACID TABLET (FP) PO SCH (09:35)
[2024-04-24] MEDS: amLODIPine BESYLATE 10 MG TABLET (FP) PO SCH (09:36)
[2024-04-24 09:45] LABS: HEMATOCRIT 40.7 % (35.4-49); HEMOGLOBIN 13.6 GM/dL (11.7-16.9); MCH 28.8 pg (25.7-33.7); MCHC 33.3 g/dl (32.0-35.9); MEAN CELL VOLUME 86.4 fl (80-96); PLATELET COUNT 206 10^3/uL (134-434); RBC 4.71 M/mm3 (4.00-5.60); RDW 14.3 % (11.9-15.9); WHITE BLOOD COUNT 8.8 K/mm3 (4.0-10.0)
[2024-04-24 09:46] LABS: POTASSIUM 5.5 mmol/L (3.5-5.1)
[2024-04-24 09:50] LABS: CALCIUM 9.3 mg/dL (8.5-10.1)
[2024-04-24 09:51] LABS: ALBUMIN 3.7 g/dl (3.4-5.0); BLOOD UREA NITROGEN 21.3 mg/dL (7-18)
[2024-04-24 09:54] LABS: CREATININE 1.3 mg/dL (0.55-1.3)
[2024-04-24 09:55] LABS: BILIRUBIN,TOTAL 0.5 mg/dL (0.2-1)
[2024-04-24] MEDS: methaDONE 40 MG, methaDONE 20 MG PO ONE (10:33)
[2024-04-24] MEDS: methaDONE HCL 10 MG TABLET PO ONE (10:36)
[2024-04-24] MEDS: diazePAM 5 MG TABLET PO ONE (12:15)
[2024-04-24] MEDS: diazePAM 5 MG TABLET PO SCH (17:34)
[2024-04-25] MEDS: diazePAM 5 MG TABLET PO SCH (05:39)
[2024-04-25] MEDS: methaDONE 40 MG, methaDONE 20 MG PO SCH (05:39)
[2024-04-25] MEDS ORDERED: methaDONE HCL 10 MG TABLET PO SCH (06:00)
[2024-04-25] MEDS: IBUPROFEN 600 MG TABLET (FP) PO PRN (09:55)
[2024-04-25] MEDS: SODIUM POLYSTYRENE SULFONATE 15 GM/60 ML BOTTLE PO ONE ×2 (16:02→16:18)
[2024-04-26] MEDS: diazePAM 5 MG TABLET PO SCH (05:21)
[2024-04-26 06:31] VITALS: BP 143/92; PULSE 63; RESP 16; TEMP 97.1
[2024-04-27] MEDS ORDERED: diazePAM 5 MG TABLET PO ONE (06:00)
== END 2024-04-26 09:37 | disposition home or self-care (01) | DRG 773 ==
LOC: YASAS 14:39 → Y6N 15:49
PROVIDERS: ADMIT Allergy & Immunology; ATTEND Surgery
PROC: HZ2ZZZZ Detoxification Services for Substance Abuse Treatment (ICD-10-PCS; principal; 2024-04-23)
DX: F10.230 Alcohol dependence with withdrawal, uncomplicated (principal); F11.20 Opioid dependence, uncomplicated; F14.20 Cocaine dependence, uncomplicated; F12.20 Cannabis dependence, uncomplicated; F17.210 Nicotine dependence, cigarettes, uncomplicated; E87.5 Hyperkalemia; E86.0 Dehydration; I10 Essential (primary) hypertension
CPT/HCPCS: 36415; 80053; 80305; 80307; 84132; 84520; 85027; 86780

== ENCOUNTER 2024-06-12 18:19 | Inpatient (IN) | payer OTHER ==
[2024-06-12 23:33] VITALS: BMI 30.1
[2024-06-13] MEDS ORDERED: NALOXONE HCL 0.4 MG/ML VIAL IM PRN (00:03)
[2024-06-13] MEDS ORDERED: POLYETHYLENE GLYCOL (HEALTHYLAX) 3350 17 GM PACKET PO PRN (00:03)
[2024-06-13] MEDS ORDERED: guaiFENesin 600 MG TABLET.ER (FP) PO PRN (00:03)
[2024-06-13] MEDS ORDERED: BENZONATATE 200 MG CAPSULE PO PRN (00:03)
[2024-06-13] MEDS ORDERED: hydrOXYzine PAMOATE 25 MG CAPSULE (FP) PO PRN (00:03)
[2024-06-13] MEDS ORDERED: ACETAMINOPHEN 325 MG TABLET (FP) PO PRN (00:03)
[2024-06-13] MEDS ORDERED: LOPERAMIDE HCL 2 MG CAPSULE PO PRN (00:03)
[2024-06-13] MEDS ORDERED: MAG HYDROX/AL HYDROX/SIMETH 30 ML UNIT-DOSE CUP PO PRN (00:03)
[2024-06-13] MEDS ORDERED: BISMUTH SUBSALICYLATE 524 MG/30 ML PO PRN (00:03)
[2024-06-13] MEDS ORDERED: DICYCLOMINE HCL 10 MG CAPSULE PO PRN (00:03)
[2024-06-13] MEDS ORDERED: METHOCARBAMOL 500 MG TABLET PO PRN (00:03)
[2024-06-13] MEDS ORDERED: BENZOCAINE/MENTHOL (CHLORASEPTIC ) LOZENGE MM PRN (00:03)
[2024-06-13] MEDS ORDERED: ONDANSETRON *ODT* 4 MG TABLET SL PRN (00:03)
[2024-06-13] MEDS ORDERED: NALOXONE (NARCAN) HCL 4 MG/0.1 ML SPRAY NS PRN (00:03)
[2024-06-13] MEDS ORDERED: NICOTINE POLACRILEX 2 MG GUM BUC PRN (00:03)
[2024-06-13] MEDS ORDERED: MAGNESIUM HYDROX 2400MG/30ML ORAL SUSPENSION 30 ML CUP PO PRN (00:03)
[2024-06-13] MEDS ORDERED: IBUPROFEN 400 MG TABLET (FP) PO PRN (00:03)
[2024-06-13] MEDS ORDERED: IBUPROFEN 600 MG TABLET (FP) PO PRN (00:03)
[2024-06-13] MEDS ORDERED: diazePAM 5 MG TABLET PO PRN (08:29)
[2024-06-13] MEDS ORDERED: LISINOPRIL 10 MG TABLET ONE (09:02)
[2024-06-13] MEDS ORDERED: NICOTINE 14 MG/24 HOURS TOPICAL PATCH TD ONE (09:02)
[2024-06-13] MEDS ORDERED: amLODIPine BESYLATE 5 MG TABLET (FP) ONE (09:02)
[2024-06-13] MEDS ORDERED: PRENATAL VITAMINS W/ FOLIC ACID TABLET (FP) PO ONE (09:03)
[2024-06-13] MEDS: LISINOPRIL 10 MG TABLET PO SCH (09:08)
[2024-06-13] MEDS: NICOTINE 14 MG/24 HOURS TOPICAL PATCH TD SCH (09:08)
[2024-06-13] MEDS: amLODIPine BESYLATE 5 MG TABLET (FP) PO SCH (09:08)
[2024-06-13] MEDS: PRENATAL VITAMINS W/ FOLIC ACID TABLET (FP) PO SCH (09:08)
[2024-06-13] MEDS ORDERED: methaDONE HCL 40 MG DISPERSABLE TABLET PO SCH (09:30)
[2024-06-13] MEDS: diazePAM 5 MG TABLET PO SCH (10:23)
[2024-06-13] MEDS: methaDONE 40 MG, methaDONE 20 MG PO SCH (10:24)
[2024-06-13] MEDS: LISINOPRIL 20 MG TABLET PO SCH (13:04)
[2024-06-13] MEDS: HYDROCHLOROTHIAZIDE 25 MG TABLET (FP) PO SCH (13:04)
[2024-06-13] MEDS: MELATONIN 5 MG TABLETS PO SCH (22:40)
[2024-06-13] MEDS: THIAMINE 100 MG TABLET PO SCH (22:40)
[2024-06-14 12:16] LABS: HEMATOCRIT 42.9 % (35.4-49); HEMOGLOBIN 14.1 GM/dL (11.7-16.9); MCH 28.8 pg (25.7-33.7); MCHC 32.9 g/dl (32.0-35.9); MEAN CELL VOLUME 87.6 fl (80-96); MEAN PLT VOLUME 10.9 fl (7.5-11.1); PLATELET COUNT 219 10^3/uL (134-434); RDW 14.2 % (11.9-15.9); WHITE BLOOD COUNT 6.1 K/mm3 (4.0-10.0)
[2024-06-14 12:32] LABS: POTASSIUM 4.8 mmol/L (3.5-5.1)
[2024-06-14 12:37] LABS: CALCIUM 9.7 mg/dL (8.5-10.1)
[2024-06-14 12:38] LABS: BLOOD UREA NITROGEN 23.6 mg/dL (7-18)
[2024-06-14 12:41] LABS: CREATININE 1.4 mg/dL (0.55-1.3)
[2024-06-14 12:43] LABS: BILIRUBIN,TOTAL 0.4 mg/dL (0.2-1); TOT PROT 7.5 g/dl (6.4-8.2)
[2024-06-15] MEDS: diazePAM 5 MG TABLET PO SCH (06:05)
[2024-06-15 20:42] VITALS: PULSE 72; TEMP 97.7
[2024-06-16] MEDS: diazePAM 5 MG TABLET PO SCH (05:54)
[2024-06-16 06:07] VITALS: BP 118/68; RESP 16
[2024-06-17] MEDS ORDERED: diazePAM 5 MG TABLET PO ONE (06:00)
== END 2024-06-16 08:24 | disposition home or self-care (01) | DRG 773 ==
LOC: YASAS 18:19 → Y3N 06-13 11:37
PROVIDERS: ADMIT Allergy & Immunology; ATTEND Surgery
PROC: HZ2ZZZZ Detoxification Services for Substance Abuse Treatment (ICD-10-PCS; principal; 2024-06-13)
DX: F10.230 Alcohol dependence with withdrawal, uncomplicated (principal); F11.20 Opioid dependence, uncomplicated; F14.20 Cocaine dependence, uncomplicated; F12.20 Cannabis dependence, uncomplicated; F17.210 Nicotine dependence, cigarettes, uncomplicated; F41.9 Anxiety disorder, unspecified; I10 Essential (primary) hypertension; Z56.0 Unemployment, unspecified
CPT/HCPCS: 36415; 80053; 80305; 80307; 85027; 86780; 93005; 93010

== ENCOUNTER 2024-07-17 17:33 | Inpatient (IN) | payer OTHER ==
[2024-07-17 18:25] VITALS: BMI 28.7
[2024-07-17] MEDS ORDERED: guaiFENesin 600 MG TABLET.ER (FP) PO PRN (19:18)
[2024-07-17] MEDS ORDERED: NICOTINE POLACRILEX 2 MG LOZENGE BC PRN (19:18)
[2024-07-17] MEDS ORDERED: IBUPROFEN 600 MG TABLET (FP) PO PRN (19:18)
[2024-07-17] MEDS ORDERED: NICOTINE POLACRILEX 2 MG GUM BUC PRN (19:18)
[2024-07-17] MEDS ORDERED: BISMUTH SUBSALICYLATE 524 MG/30 ML PO PRN (19:18)
[2024-07-17] MEDS ORDERED: BENZONATATE 200 MG CAPSULE PO PRN (19:18)
[2024-07-17] MEDS ORDERED: LOPERAMIDE HCL 2 MG CAPSULE PO PRN (19:18)
[2024-07-17] MEDS ORDERED: POLYETHYLENE GLYCOL (HEALTHYLAX) 3350 17 GM PACKET PO PRN (19:18)
[2024-07-17] MEDS ORDERED: DICYCLOMINE HCL 10 MG CAPSULE PO PRN (19:18)
[2024-07-17] MEDS ORDERED: ACETAMINOPHEN 325 MG TABLET (FP) PO PRN (19:18)
[2024-07-17] MEDS ORDERED: ONDANSETRON *ODT* 4 MG TABLET SL PRN (19:18)
[2024-07-17] MEDS ORDERED: MAGNESIUM HYDROX 2400MG/30ML ORAL SUSPENSION 30 ML CUP PO PRN (19:18)
[2024-07-17] MEDS ORDERED: P-EPHED 60MG/TRIPROLIDI 2.5MG TABLET PO PRN (19:18)
[2024-07-17] MEDS ORDERED: NALOXONE (NARCAN) HCL 4 MG/0.1 ML SPRAY NS PRN (19:18)
[2024-07-17] MEDS ORDERED: MAG HYDROX/AL HYDROX/SIMETH 30 ML UNIT-DOSE CUP PO PRN (19:18)
[2024-07-17] MEDS ORDERED: BENZOCAINE/MENTHOL (CHLORASEPTIC ) LOZENGE MM PRN (19:18)
[2024-07-17] MEDS: MELATONIN 5 MG TABLETS PO SCH (22:31)
[2024-07-17] MEDS: METHOCARBAMOL 500 MG TABLET PO PRN (22:31)
[2024-07-17] MEDS: THIAMINE 100 MG TABLET PO SCH (22:31)
[2024-07-17] MEDS: hydrOXYzine PAMOATE 25 MG CAPSULE (FP) PO PRN (22:31)
[2024-07-18] MEDS ORDERED: diazePAM 5 MG TABLET PO PRN (08:45)
[2024-07-18] MEDS ORDERED: methaDONE HCL 10 MG TABLET PO SCH (08:45)
[2024-07-18] MEDS: methaDONE 40 MG, methaDONE 20 MG PO SCH (09:18)
[2024-07-18] MEDS: HYDROCHLOROTHIAZIDE 25 MG TABLET (FP) PO SCH (09:20)
[2024-07-18] MEDS: cloNIDine HCL 0.1 MG TABLET PO SCH (09:20)
[2024-07-18] MEDS: amLODIPine BESYLATE 10 MG TABLET (FP) PO SCH (09:20)
[2024-07-18] MEDS: LISINOPRIL 20 MG TABLET PO SCH (09:20)
[2024-07-18] MEDS: PRENATAL VITAMINS W/ FOLIC ACID TABLET (FP) PO SCH (09:21)
[2024-07-18] MEDS ORDERED: PATIENT'S OWN MEDICATION (NON-FORMULARY) (Lisinopril/Hydrochlorothiazide [Lisinopril-Hctz PO SCH (10:00)
[2024-07-18] MEDS: diazePAM 5 MG TABLET PO SCH (10:24)
[2024-07-18 17:47] LABS: ALBUMIN 3.2 g/dl (3.4-5.0); CALCIUM 8.9 mg/dL (8.5-10.1)
[2024-07-18 17:49] LABS: BLOOD UREA NITROGEN 19.9 mg/dL (7-18)
[2024-07-18 17:51] LABS: CREATININE 1.2 mg/dL (0.55-1.3)
[2024-07-18 17:52] LABS: BILIRUBIN,TOTAL 0.2 mg/dL (0.2-1); TOT PROT 6.2 g/dl (6.4-8.2)
[2024-07-19] MEDS: IBUPROFEN 400 MG TABLET (FP) PO PRN (22:52)
[2024-07-20] MEDS ORDERED: cloNIDine HCL 0.1 MG TABLET PO PRN
[2024-07-20] MEDS: diazePAM 5 MG TABLET PO SCH (05:35)
[2024-07-20 09:19] VITALS: BP 140/88; PULSE 70; RESP 17; TEMP 98
[2024-07-20] MEDS: methaDONE HCL 10 MG TABLET PO ONE (09:26)
[2024-07-20] MEDS: NALOXONE (NYS OPIOID OVERDOSE PROGRAM) 4 MG/0.1 ML SPRAY NS PRN (10:25)
[2024-07-21] MEDS ORDERED: diazePAM 5 MG TABLET PO SCH (06:00)
[2024-07-21] MEDS ORDERED: methaDONE HCL 10 MG TABLET PO ONE (10:00)
[2024-07-22] MEDS ORDERED: diazePAM 5 MG TABLET PO ONE (06:00)
[2024-07-22] MEDS ORDERED: methaDONE HCL 10 MG TABLET PO ONE (10:00)
[2024-07-23] MEDS ORDERED: methaDONE HCL 10 MG TABLET PO ONE (10:00)
== END 2024-07-20 10:38 | disposition home or self-care (01) | DRG 773 ==
LOC: YASAS 17:33 → Y6N 19:28 → UNDOADMIN 19:28
PROVIDERS: ADMIT Allergy & Immunology; ATTEND Allergy & Immunology
PROC: HZ2ZZZZ Detoxification Services for Substance Abuse Treatment (ICD-10-PCS; principal; 2024-07-17)
DX: F10.230 Alcohol dependence with withdrawal, uncomplicated (principal); F11.20 Opioid dependence, uncomplicated; F14.20 Cocaine dependence, uncomplicated; F12.20 Cannabis dependence, uncomplicated; F17.210 Nicotine dependence, cigarettes, uncomplicated; I10 Essential (primary) hypertension
CPT/HCPCS: 36415; 80053; 80305; 80307

== ENCOUNTER 2024-11-28 18:16 | Inpatient (IN) | payer OTHER ==
[2024-11-28 18:56] VITALS: BMI 28.7
[2024-11-28] MEDS ORDERED: MAG HYDROX/AL HYDROX/SIMETH 30 ML UNIT-DOSE CUP PO PRN (19:42)
[2024-11-28] MEDS ORDERED: BENZOCAINE/MENTHOL (CHLORASEPTIC ) LOZENGE MM PRN (19:42)
[2024-11-28] MEDS ORDERED: guaiFENesin 600 MG TABLET.ER (FP) PO PRN (19:42)
[2024-11-28] MEDS ORDERED: BENZONATATE 200 MG CAPSULE PO PRN (19:42)
[2024-11-28] MEDS ORDERED: NICOTINE POLACRILEX 2 MG LOZENGE BC PRN (19:42)
[2024-11-28] MEDS ORDERED: ACETAMINOPHEN 325 MG TABLET (FP) PO PRN (19:42)
[2024-11-28] MEDS ORDERED: BISMUTH SUBSALICYLATE 524 MG/30 ML PO PRN (19:42)
[2024-11-28] MEDS ORDERED: NICOTINE POLACRILEX 2 MG GUM BUC PRN (19:42)
[2024-11-28] MEDS ORDERED: NALOXONE (NARCAN) HCL 4 MG/0.1 ML SPRAY NS PRN (19:42)
[2024-11-28] MEDS ORDERED: POLYETHYLENE GLYCOL (HEALTHYLAX) 3350 17 GM PACKET PO PRN (19:42)
[2024-11-28] MEDS ORDERED: ONDANSETRON *ODT* 4 MG TABLET SL PRN (19:42)
[2024-11-28] MEDS ORDERED: MAGNESIUM HYDROX 2400MG/30ML ORAL SUSPENSION 30 ML CUP PO PRN (19:42)
[2024-11-28] MEDS ORDERED: IBUPROFEN 400 MG TABLET (FP) PO PRN (19:42)
[2024-11-28] MEDS ORDERED: LOPERAMIDE HCL 2 MG CAPSULE PO PRN (19:42)
[2024-11-28] MEDS ORDERED: IBUPROFEN 600 MG TABLET (FP) PO PRN (19:42)
[2024-11-28] MEDS ORDERED: METHOCARBAMOL 500 MG TABLET PO PRN (19:42)
[2024-11-28] MEDS ORDERED: DICYCLOMINE HCL 10 MG CAPSULE PO PRN (19:42)
[2024-11-28] MEDS ORDERED: amLODIPine BESYLATE 10 MG TABLET (FP) PO SCH (19:45)
[2024-11-28] MEDS ORDERED: HYDROCORTISONE 0.5% TOPICAL OINTMENT TUBE TP PRN (19:46)
[2024-11-28] MEDS: THIAMINE 100 MG TABLET PO SCH (21:00)
[2024-11-28] MEDS: amLODIPine BESYLATE 10 MG TABLET (FP) PO SCH (21:00)
[2024-11-28] MEDS: MELATONIN 5 MG TABLETS PO SCH (21:59)
[2024-11-28] MEDS: HYDROCORTISONE 0.5% TOPICAL CREAM 30 GM TUBE TP PRN (21:59)
[2024-11-29] MEDS: methaDONE 40 MG, methaDONE 30 MG PO ONE (07:54)
[2024-11-29] MEDS ORDERED: diazePAM 5 MG TABLET PO PRN (09:03)
[2024-11-29] MEDS ORDERED: PATIENT'S OWN MEDICATION (NON-FORMULARY) (Lisinopril/Hydrochlorothiazide [Lisinopril-Hctz PO SCH (10:00)
[2024-11-29] MEDS ORDERED: methaDONE HCL 40 MG DISPERSABLE TABLET PO SCH (10:00)
[2024-11-29] MEDS: diazePAM 5 MG TABLET PO SCH (10:07)
[2024-11-29] MEDS: HYDROCHLOROTHIAZIDE 25 MG TABLET (FP) PO SCH (10:07)
[2024-11-29] MEDS: PRENATAL VITAMINS W/ FOLIC ACID TABLET (FP) PO SCH (10:07)
[2024-11-29] MEDS: LISINOPRIL 20 MG TABLET PO SCH (10:07)
[2024-11-29 11:40] LABS: HEMATOCRIT 38.8 % (35.4-49); HEMOGLOBIN 12.4 GM/dL (11.7-16.9); MCH 28.3 pg (25.7-33.7); MCHC 31.9 g/dl (32.0-35.9); MEAN CELL VOLUME 88.7 fl (80-96); MEAN PLT VOLUME 9.9 fl (7.5-11.1); PLATELET COUNT 217 10^3/uL (134-434); RBC 4.37 M/mm3 (4.00-5.60); RDW 13.8 % (11.9-15.9); WHITE BLOOD COUNT 9.2 K/mm3 (4.0-10.0)
[2024-11-29 12:17] LABS: POTASSIUM 4.4 mmol/L (3.5-5.1)
[2024-11-29 12:20] LABS: ALBUMIN 3.6 g/dl (3.4-5.0); BLOOD UREA NITROGEN 23.1 mg/dL (7-18)
[2024-11-29 12:23] LABS: CREATININE 1.2 mg/dL (0.55-1.3)
[2024-11-29 12:24] LABS: BILIRUBIN,TOTAL 0.2 mg/dL (0.2-1)
[2024-11-29 12:25] LABS: TOT PROT 6.5 g/dl (6.4-8.2)
[2024-11-29] MEDS: SUVOREXANT 10 MG TABLET PO PRN (22:47)
[2024-11-29] MEDS: MIRTAZAPINE 15 MG TABLET (FP) PO SCH (22:50)
[2024-11-30] MEDS: methaDONE 40 MG, methaDONE 30 MG PO SCH (05:53)
[2024-11-30 08:41] VITALS: BP 136/77; PULSE 89; RESP 16; TEMP 98
[2024-12-01] MEDS ORDERED: diazePAM 5 MG TABLET PO SCH (06:00)
[2024-12-02] MEDS ORDERED: diazePAM 5 MG TABLET PO SCH (06:00)
[2024-12-03] MEDS ORDERED: diazePAM 5 MG TABLET PO ONE (06:00)
== END 2024-11-30 13:26 | disposition left against medical advice (07) | DRG 770 ==
LOC: YASAS 18:16 → Y3N 20:10
PROVIDERS: ADMIT Allergy & Immunology; ATTEND Allergy & Immunology
PROC: HZ2ZZZZ Detoxification Services for Substance Abuse Treatment (ICD-10-PCS; principal; 2024-11-28)
DX: F10.230 Alcohol dependence with withdrawal, uncomplicated (principal); F11.20 Opioid dependence, uncomplicated; F14.20 Cocaine dependence, uncomplicated; F12.20 Cannabis dependence, uncomplicated; F17.210 Nicotine dependence, cigarettes, uncomplicated; F19.24 Other psychoactive substance dependence with psychoactive substance-induced mood disorder; F32.A Depression, unspecified; G47.00 Insomnia, unspecified; I10 Essential (primary) hypertension
CPT/HCPCS: 36415; 80053; 80305; 80307; 85027; 86780

== ENCOUNTER 2024-12-23 15:24 | Inpatient (IN) | payer OTHER ==
[2024-12-23 16:28] VITALS: BMI 28.1
[2024-12-23] MEDS ORDERED: BISMUTH SUBSALICYLATE 524 MG/30 ML PO PRN (17:45)
[2024-12-23] MEDS ORDERED: POLYETHYLENE GLYCOL (HEALTHYLAX) 3350 17 GM PACKET PO PRN (17:45)
[2024-12-23] MEDS ORDERED: NALOXONE (NARCAN) HCL 4 MG/0.1 ML SPRAY NS PRN (17:45)
[2024-12-23] MEDS ORDERED: ACETAMINOPHEN 325 MG TABLET (FP) PO PRN (17:45)
[2024-12-23] MEDS ORDERED: MAG HYDROX/AL HYDROX/SIMETH 30 ML UNIT-DOSE CUP PO PRN (17:45)
[2024-12-23] MEDS ORDERED: guaiFENesin 600 MG TABLET.ER (FP) PO PRN (17:45)
[2024-12-23] MEDS ORDERED: DICYCLOMINE HCL 10 MG CAPSULE PO PRN (17:45)
[2024-12-23] MEDS ORDERED: IBUPROFEN 600 MG TABLET (FP) PO PRN (17:45)
[2024-12-23] MEDS ORDERED: BENZOCAINE/MENTHOL (CHLORASEPTIC ) LOZENGE MM PRN (17:45)
[2024-12-23] MEDS ORDERED: ONDANSETRON *ODT* 4 MG TABLET SL PRN (17:45)
[2024-12-23] MEDS ORDERED: MAGNESIUM HYDROX 2400MG/30ML ORAL SUSPENSION 30 ML CUP PO PRN (17:45)
[2024-12-23] MEDS ORDERED: IBUPROFEN 400 MG TABLET (FP) PO PRN (17:45)
[2024-12-23] MEDS ORDERED: LOPERAMIDE HCL 2 MG CAPSULE PO PRN (17:45)
[2024-12-23] MEDS ORDERED: hydrOXYzine PAMOATE 25 MG CAPSULE (FP) PO PRN (17:45)
[2024-12-23] MEDS ORDERED: BENZONATATE 200 MG CAPSULE PO PRN (17:45)
[2024-12-23] MEDS ORDERED: cloNIDine HCL 0.1 MG TABLET ONE (18:42)
[2024-12-23] MEDS: cloNIDine HCL 0.1 MG TABLET PO SCH (18:45)
[2024-12-23] MEDS: MELATONIN 5 MG TABLETS PO SCH (22:18)
[2024-12-23] MEDS: THIAMINE 100 MG TABLET PO SCH (22:18)
[2024-12-23] MEDS: METHOCARBAMOL 500 MG TABLET PO PRN (22:18)
[2024-12-24 09:32] LABS: CHLORIDE 107 mmol/L (98-107); HEMATOCRIT 38.1 % (40.1-51.0); HEMOGLOBIN 11.9 g/dL (13.7-17.5); MCHC 31.2 g/dl (32.3-36.5); MEAN CELL VOLUME 90.3 fl (79.0-92.2); PLATELET COUNT 193 x10^3/uL (163-337); POTASSIUM 4.1 mmol/L (3.5-5.1); RDW 13.4 % (12.2-16.1); SODIUM 140 mmol/L (136-145)
[2024-12-24] MEDS: PRENATAL VITAMINS W/ FOLIC ACID TABLET (FP) PO SCH (09:47)
[2024-12-24 10:18] LABS: ALBUMIN 3.2 g/dl (3.4-5.0); ANION GAP 7 mmol/L (4-13); BLOOD UREA NITROGEN 18.7 mg/dL (7-18); CALCIUM 8.8 mg/dL (8.5-10.1); CO2 26 mmol/L (21-32)
[2024-12-24 10:19] LABS: GLUCOSE,RANDOM 94 mg/dL (74-106)
[2024-12-24 10:21] LABS: CREATININE 1.1 mg/dL (0.55-1.3); SGOT/AST 21 U/L (15-37)
[2024-12-24 10:22] LABS: BILIRUBIN,TOTAL 0.4 mg/dL (0.2-1); TOT PROT 5.8 g/dl (6.4-8.2)
[2024-12-24 10:24] LABS: ALK PHOS 51 U/L (45-117)
[2024-12-24 10:34] LABS: SGPT/ALT 14 U/L (13-61)
[2024-12-24 13:12] VITALS: BP 163/89; PULSE 61; RESP 18; TEMP 97.5
[2024-12-25] MEDS ORDERED: cloNIDine HCL 0.1 MG TABLET PO PRN
[2024-12-25] MEDS ORDERED: methaDONE HCL 40 MG DISPERSABLE TABLET PO ONE (10:00)
[2024-12-26] MEDS ORDERED: methaDONE HCL 10 MG TABLET PO ONE (10:00)
[2024-12-27] MEDS ORDERED: methaDONE 80 MG, methaDONE 10 MG PO ONE (10:00)
[2024-12-27] MEDS ORDERED: methaDONE HCL 10 MG TABLET PO ONE (10:00)
[2024-12-28] MEDS ORDERED: methaDONE HCL 10 MG TABLET PO ONE (10:00)
[2024-12-29] MEDS ORDERED: methaDONE 80 MG, methaDONE 20 MG PO ONE (10:00)
[2024-12-29] MEDS ORDERED: methaDONE HCL 10 MG TABLET PO ONE (10:00)
== END 2024-12-24 12:30 | disposition left against medical advice (07) | DRG 770 ==
LOC: YASAS 15:24 → Y3N 18:29
PROVIDERS: ADMIT Allergy & Immunology; ATTEND Allergy & Immunology
PROC: HZ2ZZZZ Detoxification Services for Substance Abuse Treatment (ICD-10-PCS; principal; 2024-12-23)
DX: F11.23 Opioid dependence with withdrawal (principal); F10.230 Alcohol dependence with withdrawal, uncomplicated; F14.20 Cocaine dependence, uncomplicated; F12.20 Cannabis dependence, uncomplicated; F17.210 Nicotine dependence, cigarettes, uncomplicated; I10 Essential (primary) hypertension
CPT/HCPCS: 36415; 80053; 80305; 80307; 85027; 86780; 93005; 93010

== ENCOUNTER 2025-03-22 14:33 | Inpatient (IN) | payer OTHER ==
[2025-03-22 14:51] VITALS: BMI 28.3
[2025-03-22] MEDS ORDERED: ONDANSETRON *ODT* 4 MG TABLET SL PRN (15:30)
[2025-03-22] MEDS ORDERED: POLYETHYLENE GLYCOL (HEALTHYLAX) 3350 17 GM PACKET PO PRN (15:30)
[2025-03-22] MEDS ORDERED: ACETAMINOPHEN 325 MG TABLET (FP) PO PRN (15:30)
[2025-03-22] MEDS ORDERED: NICOTINE POLACRILEX 2 MG GUM BUC PRN (15:30)
[2025-03-22] MEDS ORDERED: IBUPROFEN 400 MG TABLET (FP) PO PRN (15:30)
[2025-03-22] MEDS ORDERED: LOPERAMIDE HCL 2 MG CAPSULE PO PRN (15:30)
[2025-03-22] MEDS ORDERED: NICOTINE POLACRILEX 2 MG LOZENGE BC PRN (15:30)
[2025-03-22] MEDS ORDERED: guaiFENesin 600 MG TABLET.ER (FP) PO PRN (15:30)
[2025-03-22] MEDS ORDERED: BENZONATATE 200 MG CAPSULE PO PRN (15:30)
[2025-03-22] MEDS ORDERED: BISMUTH SUBSALICYLATE 262 MG/15 ML BTL PO PRN (15:30)
[2025-03-22] MEDS ORDERED: BENZOCAINE/MENTHOL (CHLORASEPTIC ) LOZENGE MM PRN (15:30)
[2025-03-22] MEDS ORDERED: NALOXONE (NARCAN) HCL 4 MG/0.1 ML SPRAY NS PRN (15:30)
[2025-03-22] MEDS ORDERED: DICYCLOMINE HCL 10 MG CAPSULE PO PRN (15:30)
[2025-03-22] MEDS: METHOCARBAMOL 500 MG TABLET PO PRN (17:41)
[2025-03-22] MEDS: IBUPROFEN 600 MG TABLET (FP) PO PRN (17:41)
[2025-03-22] MEDS: hydrOXYzine PAMOATE 25 MG CAPSULE (FP) PO PRN (17:41)
[2025-03-22] MEDS: MELATONIN 5 MG TABLETS PO SCH (22:09)
[2025-03-22] MEDS: THIAMINE 100 MG TABLET PO SCH (22:10)
[2025-03-23] MEDS ORDERED: chlordiazePOXIDE HCL 25 MG CAPSULE PO PRN (09:09)
[2025-03-23] MEDS: PRENATAL VITAMINS W/ FOLIC ACID TABLET (FP) PO SCH (09:42)
[2025-03-23] MEDS: LISINOPRIL 5 MG TABLET PO SCH (09:43)
[2025-03-23] MEDS: amLODIPine BESYLATE 5 MG TABLET (FP) PO SCH (09:44)
[2025-03-23] MEDS: chlordiazePOXIDE HCL 25 MG CAPSULE PO SCH (10:06)
[2025-03-23] MEDS: methaDONE HCL 10 MG TABLET PO ONE (10:12)
[2025-03-23 12:13] LABS: HEMATOCRIT 40.9 % (40.1-51.0); HEMOGLOBIN 12.9 g/dL (13.7-17.5); MCHC 31.5 g/dl (32.3-36.5); MEAN CELL VOLUME 87.8 fl (79.0-92.2); MEAN PLT VOLUME 11.9 fl (9.4-12.4); PLATELET COUNT 218 x10^3/uL (163-337); RDW 13.5 % (12.2-16.1)
[2025-03-23 12:19] LABS: CHLORIDE 106 mmol/L (98-107); POTASSIUM 4.5 mmol/L (3.5-5.1); SODIUM 139 mmol/L (136-145)
[2025-03-23 12:30] LABS: CALCIUM 9.1 mg/dL (8.5-10.1)
[2025-03-23 12:31] LABS: ALBUMIN 3.4 g/dl (3.4-5.0); ANION GAP 6 mmol/L (4-13); BLOOD UREA NITROGEN 20.1 mg/dL (7-18); CO2 27 mmol/L (21-32); GLUCOSE,RANDOM 87 mg/dL (74-106)
[2025-03-23 12:34] LABS: SGOT/AST 15 U/L (15-37)
[2025-03-23 12:35] LABS: BILIRUBIN,TOTAL 0.6 mg/dL (0.2-1)
[2025-03-23 12:36] LABS: TOT PROT 6.3 g/dl (6.4-8.2)
[2025-03-23 12:37] LABS: ALK PHOS 64 U/L (45-117)
[2025-03-23 12:46] LABS: SGPT/ALT 19 U/L (13-61)
[2025-03-23] MEDS: methaDONE HCL 10 MG TABLET PO PRN (12:49)
[2025-03-24] MEDS: chlordiazePOXIDE HCL 25 MG CAPSULE PO SCH (05:26)
[2025-03-24] MEDS: MAGNESIUM HYDROX 2400MG/30ML ORAL SUSPENSION 30 ML CUP PO PRN (05:44)
[2025-03-24] MEDS ORDERED: methaDONE HCL 40 MG DISPERSABLE TABLET PO ONE (10:00)
[2025-03-24] MEDS: MAG HYDROX/AL HYDROX/SIMETH 30 ML UNIT-DOSE CUP PO PRN (23:04)
[2025-03-25] MEDS ORDERED: cloNIDine HCL 0.1 MG TABLET PO PRN
[2025-03-25] MEDS: chlordiazePOXIDE HCL 10 MG CAPSULE PO SCH (05:38)
[2025-03-25] MEDS ORDERED: methaDONE HCL 40 MG DISPERSABLE TABLET PO ONE (10:00)
[2025-03-25] MEDS: methaDONE 40 MG, methaDONE 10 MG PO ONE (10:19)
[2025-03-26] MEDS ORDERED: chlordiazePOXIDE HCL 10 MG CAPSULE PO PRN
[2025-03-26] MEDS: chlordiazePOXIDE HCL 10 MG CAPSULE PO SCH (05:46)
[2025-03-26] MEDS ORDERED: methaDONE HCL 40 MG DISPERSABLE TABLET PO ONE (10:00)
[2025-03-27] MEDS: chlordiazePOXIDE HCL 10 MG CAPSULE PO ONE (05:40)
[2025-03-27] MEDS: methaDONE 40 MG, methaDONE 20 MG PO ONE (09:28)
[2025-03-27] MEDS ORDERED: methaDONE HCL 40 MG DISPERSABLE TABLET PO ONE (10:00)
[2025-03-27 20:48] VITALS: RESP 17
[2025-03-28 08:56] VITALS: BP 140/89; PULSE 78; TEMP 97.9
[2025-03-28] MEDS ORDERED: methaDONE HCL 40 MG DISPERSABLE TABLET PO ONE (10:00)
== END 2025-03-28 10:19 | disposition home or self-care (01) | DRG 773 ==
LOC: YASAS 14:33 → Y6N 16:33
PROVIDERS: ADMIT Allergy & Immunology; ATTEND Family Medicine Addiction Medicine
PROC: HZ2ZZZZ Detoxification Services for Substance Abuse Treatment (ICD-10-PCS; principal; 2025-03-22)
DX: F11.23 Opioid dependence with withdrawal (principal); F10.230 Alcohol dependence with withdrawal, uncomplicated; F14.20 Cocaine dependence, uncomplicated; F12.20 Cannabis dependence, uncomplicated; F17.210 Nicotine dependence, cigarettes, uncomplicated; F32.A Depression, unspecified; F41.9 Anxiety disorder, unspecified; I10 Essential (primary) hypertension
CPT/HCPCS: 36415; 80053; 80307; 85027; 86780

== ENCOUNTER 2025-06-04 11:52 | Inpatient (IN) | payer OTHER ==
[2025-06-04 12:11] VITALS: BMI 28.7
[2025-06-04] MEDS ORDERED: LOPERAMIDE HCL 2 MG CAPSULE PO PRN (12:34)
[2025-06-04] MEDS ORDERED: BENZONATATE 200 MG CAPSULE PO PRN (12:34)
[2025-06-04] MEDS ORDERED: guaiFENesin 600 MG TABLET.ER (FP) PO PRN (12:34)
[2025-06-04] MEDS ORDERED: NICOTINE POLACRILEX 2 MG GUM BUC PRN (12:34)
[2025-06-04] MEDS ORDERED: NALOXONE (NARCAN) HCL 4 MG/0.1 ML SPRAY NS PRN (12:34)
[2025-06-04] MEDS ORDERED: DICYCLOMINE HCL 10 MG CAPSULE PO PRN (12:34)
[2025-06-04] MEDS ORDERED: P-EPHED 60MG/TRIPROLIDI 2.5MG TABLET PO PRN (12:34)
[2025-06-04] MEDS ORDERED: BENZOCAINE/MENTHOL (CHLORASEPTIC ) LOZENGE MM PRN (12:34)
[2025-06-04] MEDS ORDERED: MAGNESIUM HYDROX 2400MG/30ML ORAL SUSPENSION 30 ML CUP PO PRN (12:34)
[2025-06-04] MEDS ORDERED: METHOCARBAMOL 500 MG TABLET PO PRN (12:34)
[2025-06-04] MEDS ORDERED: MAG HYDROX/AL HYDROX/SIMETH 30 ML UNIT-DOSE CUP PO PRN (12:34)
[2025-06-04] MEDS ORDERED: NICOTINE POLACRILEX 2 MG LOZENGE BC PRN (12:34)
[2025-06-04] MEDS ORDERED: POLYETHYLENE GLYCOL (HEALTHYLAX) 3350 17 GM PACKET PO PRN (12:34)
[2025-06-04] MEDS ORDERED: BISMUTH SUBSALICYLATE 524 MG/30 ML PO PRN (12:34)
[2025-06-04] MEDS ORDERED: IBUPROFEN 600 MG TABLET (FP) PO PRN (12:34)
[2025-06-04] MEDS ORDERED: ACETAMINOPHEN 325 MG TABLET (FP) PO PRN (12:34)
[2025-06-04] MEDS ORDERED: ONDANSETRON *ODT* 4 MG TABLET ONE (13:20)
[2025-06-04] MEDS: ONDANSETRON *ODT* 4 MG TABLET SL PRN (13:21)
[2025-06-04] MEDS: MELATONIN 5 MG TABLETS PO SCH (22:41)
[2025-06-04] MEDS: THIAMINE 100 MG TABLET PO SCH (22:41)
[2025-06-05] MEDS: PRENATAL VITAMINS W/ FOLIC ACID TABLET (FP) PO SCH (10:36)
[2025-06-05] MEDS: IBUPROFEN 400 MG TABLET (FP) PO PRN (14:35)
[2025-06-06 09:51] VITALS: BP 141/85; PULSE 61; RESP 18; TEMP 97.1
== END 2025-06-06 10:34 | disposition left against medical advice (07) | DRG 770 ==
LOC: YASAS 11:52 → Y3N 13:31
PROVIDERS: ADMIT Neuromusculoskeletal Medicine & OMM; ATTEND Allergy & Immunology
PROC: HZ2ZZZZ Detoxification Services for Substance Abuse Treatment (ICD-10-PCS; principal; 2025-06-04)
DX: F11.23 Opioid dependence with withdrawal (principal); F10.230 Alcohol dependence with withdrawal, uncomplicated; F14.20 Cocaine dependence, uncomplicated; F12.20 Cannabis dependence, uncomplicated; F17.210 Nicotine dependence, cigarettes, uncomplicated; I10 Essential (primary) hypertension
CPT/HCPCS: Q0162